=== PATIENT | male | born 1955 | race American Indian/Alaskan Native ===

== ENCOUNTER 2018-09-17 00:39 | Inpatient (IN) | payer OTHER ==
[2018-09-17] MEDS ORDERED: NACL 0.9% 1000 ML 1,000 ML IV ONE (02:00)
--- NOTE | 2018-09-17 02:18 | Emergency Department Report ---
ED General Adult HPI - General Chief complaint: Seizure Stated complaint: SEIZURE Time Seen by Provider: 09/17/18 01:42 Source: EMS Mode of arrival: Stretcher Limitations: Other - History of Present Illness Initial comments: 63-year-old male with a past medical history of seizures presents after a friend brought him to emergency department the patient presumptively had a seizure. EMS states that there was drug around the residence in which they pick the patient up. EMS states that they were possibly filming movie at the house. Patient unable to give the date and time upon arrival here patient was not oriented to person upon my evaluation. The patient was unable to give a full history upon my evaluation. - Related Data Allergies Allergy/AdvReac Type Severity Reaction Status Date / Time ampicillin Allergy Unknown Verified 09/17/18 01:30 ED Review of Systems ROS: Stated complaint: SEIZURE Other details as noted in HPI Comment: Unobtainable due to pts medical conditions Constitutional: denies: chills, fever Eyes: denies: eye pain, eye discharge, vision change ENT: denies: ear pain, throat pain Respiratory: denies: cough, shortness of breath, wheezing Cardiovascular: denies: chest pain, palpitations Endocrine: no symptoms reported Gastrointestinal: denies: abdominal pain, nausea, diarrhea Genitourinary: denies: urgency, dysuria Musculoskeletal: denies: back pain, joint swelling, arthralgia Skin: denies: rash, lesions Neurological: denies: headache, weakness, paresthesias Psychiatric: denies: anxiety, depression Hematological/Lymphatic: denies: easy bleeding, easy bruising ED Past Medical Hx - Past Medical History Previous Medical History?: Yes Hx Seizures: Yes - Social History Smoking Status: Current Every Day Smoker ED Physical Exam - General Limitations: Other General appearance: other (only speaking the name "giovana" ; dehydrated) - Head Head exam: Present: atraumatic, normocephalic - Eye Eye exam: Present: normal appearance - ENT ENT exam: Present: mucous membranes dry - Neck Neck exam: Present: normal inspection - Respiratory Respiratory exam: Present: normal lung sounds bilaterally. Absent: respiratory distress - Cardiovascular Cardiovascular Exam: Present: regular rate, normal rhythm. Absent: systolic murmur, diastolic murmur, rubs, gallop - GI/Abdominal GI/Abdominal exam: Present: soft, normal bowel sounds - Rectal Rectal exam: Present: deferred - Extremities Exam Extremities exam: Present: normal inspection - Back Exam Back exam: Present: normal inspection - Expanded Neurological Exam Expanded Neurological exam: Present: innattentive Patient oriented to: Absent: person, place, time Cranial nerves: Gag Reflex: Normal Upper motor neuron: Constantino Neglect: Normal, Pronator Drift: Normal Motor strength exam: RUE: 5, LUE: 5, RLE: 5, LLE: 5 Best Eye Response ([place]): (4) open spontaneously Best Motor Response ([place]): (5) localizes to pain Best Verbal Response ([place]): (4) confused conversation [place] Total: 13 - Skin Skin exam: Present: warm, dry, intact, normal color. Absent: rash ED Course Vital Signs 09/17/18 09/17/18 09/17/18 01:38 02:00 04:33 Pulse Rate 76 83 Respiratory 18 20 18 Rate Blood Pressure 151/89 Blood Pressure 160/95 [Left] O2 Sat by Pulse 100 96 100 Oximetry ED Medical Decision Making - Lab Data Result diagrams: 09/17/18 02:05 09/17/18 02:05 - EKG Data EKG shows normal: sinus rhythm Rate: bradycardia - EKG Data Interpretation: nonspecific ST-T wave dorothy - Medical Decision Making Patient had a seizure episode while in emergency room was given Results of Ativan therapy. Patient has CT which showed no acute processes. After this evaluation patient remains not oriented to person place and time and with this being present to neurology was consulted. Patient be admitted to the hospitalist service for continued management and treatment. - Differential Diagnosis STEMI; NSTEMI; Arrhythmia; Anemia; Electrolyte Abnormality Critical care attestation.: If time is entered above; I have spent that time in minutes in the direct care of this critically ill patient, excluding procedure time. ED Disposition Clinical Impression: Seizure, Altered mental status, unspecified Disposition: DC-09 OP ADMIT IP TO THIS HOSP Is pt being admited?: Yes Does the pt Need Aspirin: No Condition: Fair Referrals: MACO RODRIGUEZ MD [Primary Care Provider] - 3-5 Days Time of Disposition: 06:43 Print Language: ITALIAN
[2018-09-17 02:23] LABS: Hematocrit 38.7 % (35.5-45.6); Hemoglobin 13.3 gm/dl (11.8-15.2); Mean Corpuscular HGB Conc 35 % (32-34); Mean Corpuscular Hemoglobin 36 pg (28-32); Mean Corpuscular Volume 103 fl (84-94); Platelet Count 329 K/mm3 (140-440); Red Blood Count 3.74 M/mm3 (3.65-5.03); Red Cell Distribution Width 13.5 % (13.2-15.2)
[2018-09-17 02:42] LABS: BUN/Creatinine Ratio 10; Blood Urea Nitrogen 7 mg/dL (9-20); Calcium 9.4 mg/dL (8.4-10.2); Hemolysis Index 11
[2018-09-17] MEDS ORDERED: ATIVAN ONE (03:28)
[2018-09-17] MEDS ORDERED: KEPPRA 1,000 MG/NS 0.75% 100ML 1,000 MG/100 ML BAG IV ONE ×2 (03:28→03:38)
[2018-09-17] MEDS ORDERED: ATIVAN IV ONE ×2 (03:38→04:25)
[2018-09-17 04:30] LABS: Amphetamine Screen,Urine PRESUMPTIVE NEGATIVE; Benzodiazepines Screen,Urine PRESUMPTIVE NEGATIVE; Cannabinoid Screen,Urine PRESUMPTIVE NEGATIVE; Cocaine Screen,Urine PRESUMPTIVE NEGATIVE; Methadone Screen,Urine PRESUMPTIVE NEGATIVE; Opiate Screen,Urine PRESUMPTIVE NEGATIVE
[2018-09-17] MEDS ORDERED: ZOFRAN IV ONE (04:30)
[2018-09-17] MEDS ORDERED: ZOFRAN ONE (04:58)
--- NOTE | 2018-09-17 06:00 | Cat Scan Report ---
CT HEAD WITHOUT CONTRAST INDICATION : Seizure. Altered mental status. TECHNIQUE: Axial, coronal and sagittal CT imaging was performed from the skull apex through the skul l base without contrast. All CT scans at this location are performed using CT dose reduction for ALA RA by means of automated exposure control. COMPARISON: None available. FINDINGS: Motion artifact limits this exam. PARENCHYMA: No mass, midline shift, hemorrhage, extraaxial collection or acute territorial infarctio n. There is generalized atrophy. Areas of low-attenuation along the periventricular white matter like ly represent chronic microvascular ischemic changes. Bilateral basal ganglial calcifications are note d. VENTRICLES: Prominent secondary to atrophy. No acute abnormality. SOFT TISSUES: Soft tissues including the orbits appear normal. BONES: No acute osseous abnormality. SINUSES: No significant abnormality. ADDITIONAL FINDINGS: None. IMPRESSION: 1. No acute abnormality. 2. Additional chronic changes as above. Signer Name: Jono Levy MD Signed: 09/17/2018 5:56 AM Workstation Name: [id number]
[2018-09-17] MEDS ORDERED: PROVENTIL IH PRN (06:07)
[2018-09-17] MEDS ORDERED: SODIUM CHLORIDE FLUSH SYRINGE 10 ML IV PRN (06:07)
[2018-09-17] MEDS ORDERED: TYLENOL PO PRN (06:07)
[2018-09-17] MEDS ORDERED: ZOFRAN IV PRN (06:07)
[2018-09-17] MEDS ORDERED: APRESOLINE IV PRN (06:10)
--- NOTE | 2018-09-17 06:24 | History and Physical Report ---
<PIPER SANTILLAN - Last Filed: 09/17/18 06:26> History of Present Illness Date of examination: 09/17/18 Date of admission: 09/17/2018 Chief complaint: Seizure, postictal state History of present illness: 63-year-old male unknown medical history presents to [facility] ED by EMS with complaints of witnessed seizure. Patient is awake and confused. He is unable to provide history. History is taken from EMS report. Patient's friend witnessed patient actively seizing., and called EMS. Upon EMS's arrival to pt's location (home, unsure whether or not this was pt's home) he was found to be awake with drug paraphernalia around him. He was unable to provide any information to EMS. The friend toldl EMS that they were at the home to shoot a movie. While in the ED patient experienced another seizure, and was given IV Ativan. Currently in postoctal state. He is awake, but disoriented 4. Past History Past Medical History: other (unable to obtain, due to patient's mental status) Medications and Allergies Allergies Allergy/AdvReac Type Severity Reaction Status Date / Time ampicillin Allergy Unknown Verified 09/17/18 01:30 Active Meds: Active Medications Acetaminophen (Tylenol) 650 mg PO Q4H PRN PRN Reason: Pain MILD(1-3)/Fever >100.5/JENKINS Albuterol (Proventil) 2.5 mg IH Q3HRT PRN PRN Reason: Shortness Of Breath Enoxaparin Sodium (Lovenox) 40 mg SUB-Q QDAY@2200 KOTA Hydralazine HCl (Apresoline) 10 mg IV Q4HR PRN PRN Reason: Blood Pressure Levetiracetam 1,000 mg/ (Dextrose) 110 mls @ 400 mls/hr IV Q12HR KOTA Lorazepam (Ativan) 2 mg IV Q4H PRN PRN Reason: Agitation; seizure Ondansetron HCl (Zofran) 4 mg IV Q8H PRN PRN Reason: Nausea And Vomiting Sodium Chloride (Sodium Chloride Flush Syringe 10 Ml) 10 ml IV BID KOTA Sodium Chloride (Sodium Chloride Flush Syringe 10 Ml) 10 ml IV PRN PRN PRN Reason: LINE FLUSH Review of Systems ROS unobtainable: due to mental status Exam - Physical Exam Narrative exam: Physical exam General appearance: Present: Postictal state, disoriented to self, time, place, person, thin well-developed -Greek male - EENT Eyes: Present: PERRL, EOM intact ENT: hearing intact, poor dentition - Neck Neck: Present: supple, normal ROM - Respiratory Respiratory effort: Non-labored Respiratory: Clear throughout - Cardiovascular Heart rate: 59(bpm) Rhythm: Sinus bradycardia, tall T wave Heart Sounds: Present: S1 & S2. Absent: rub, click - Extremities Extremities: no ischemia, pulses intact, - Peripheral Assessment Peripheral Pulses: within normal limits - Abdominal General gastrointestinal: soft, non-tender, normal bowel sounds - Integumentary Integumentary: Present: warm, dry - Musculoskeletal Musculoskeletal: Able to move extremities - Psychiatric Psychiatric: Unable to assess a patient is currently confused and in postictal state - Constitutional Vitals: Temp Pulse Resp BP Pulse Ox 83 18 160/95 100 09/17/18 04:33 09/17/18 04:33 09/17/18 04:33 09/17/18 04:33 Results - Labs CBC & Chem 7: 09/17/18 02:05 09/17/18 02:05 Labs: Laboratory Last Values WBC 4.0 K/mm3 (4.5-11.0) L 09/17/18 02:05 RBC 3.74 M/mm3 (3.65-5.03) 09/17/18 02:05 Hgb 13.3 gm/dl (11.8-15.2) 09/17/18 02:05 Hct 38.7 % (35.5-45.6) 09/17/18 02:05 MCV 103 fl (84-94) H 09/17/18 02:05 MCH 36 pg (28-32) H 09/17/18 02:05 MCHC 35 % (32-34) H 09/17/18 02:05 RDW 13.5 % (13.2-15.2) 09/17/18 02:05 Plt Count 329 K/mm3 (140-440) 09/17/18 02:05 Sodium 136 mmol/L (137-145) L 09/17/18 02:05 Potassium 4.8 mmol/L (3.6-5.0) 09/17/18 02:05 Chloride 98.3 mmol/L (98-107) 09/17/18 02:05 Carbon Dioxide 24 mmol/L (22-30) 09/17/18 02:05 19 mmol/L 09/17/18 02:05 BUN 7 mg/dL (9-20) L 09/17/18 02:05 0.7 mg/dL (0.8-1.5) L 09/17/18 02:05 Estimated GFR > 60 ml/min 09/17/18 02:05 10 % 09/17/18 02:05 Glucose 111 mg/dL (75-100) H 09/17/18 02:05 Calcium 9.4 mg/dL (8.4-10.2) 09/17/18 02:05 256 units/L (55-170) H 09/17/18 02:05 < 0.010 ng/mL (0.00-0.029) 09/17/18 02:05 Salicylates < 0.3 mg/dL (2.8-20.0) L 09/17/18 02:05 Presumptive negative 09/17/18 03:02 Presumptive negative 09/17/18 03:02 Acetaminophen < 5.0 ug/mL (10.0-30.0) L 09/17/18 02:05 Ur Barbiturates Screen Presumptive negative 09/17/18 03:02 Ur Phencyclidine Scrn Presumptive negative 09/17/18 03:02 Ur Amphetamines Screen Presumptive negative 09/17/18 03:02 U Benzodiazepines Scrn Presumptive negative 09/17/18 03:02 Presumptive negative 09/17/18 03:02 U Marijuana (THC) Screen Presumptive negative 09/17/18 03:02 Disclamer 09/17/18 03:02 Plasma/Serum Alcohol < 0.01 % (0-0.07) 09/17/18 02:05 - Imaging and Cardiology Imaging and Cardiology: CT Head: FINDINGS: Motion artifact limits this exam. PARENCHYMA: No mass, midline shift, hemorrhage, extraaxial collection or acute territorial infarction. There is generalized atrophy. Areas of low-attenuation along the periventricular white matter likely represent chronic microvascular ischemic changes. Bilateral basal ganglial calcifications are noted. VENTRICLES: Prominent secondary to atrophy. No acute abnormality. SOFT TISSUES: Soft tissues including the orbits appear normal. BONES: No acute osseous abnormality. SINUSES: No significant abnormality. ADDITIONAL FINDINGS: None. IMPRESSION: 1. No acute abnormality. 2. Additional chronic changes as above. Assessment and Plan Assessment and plan: 63-year-old male unknown medical history presents to [facility] ED by EMS with complaints of witnessed seizure. While in the ED patient experienced another seizure he was given IV Ativan. Currently in postoctal state. He is awake, but disoriented 4. 1. Seizure -Witnessed seizures 2, one at home witnessed by her friend, the other witnessed in ED -Initiate seizure precautions -Received IV Ativan -CT head negative for acute abnormalities -Start IV Keppra 1 g twice a day -IV Ativan when necessary -Neurology consulted -EEG pending 2. Acute encephalopathy -Likely secondary to seizure -Urine drug screen negative -Initiate neuro checks -Hydrated with IV fluid 3. Hypertension -Unable to obtain medical history -Monitor BP -IV hydralazine when necessary 4. DVT PPX -On Lovenox Advance Directives: No VTE prophylaxis?: Chemical Plan of care discussed with patient/family: Yes <TOYA IRVING - Last Filed: 09/17/18 06:48> Medications and Allergies Active Meds: Active Medications Acetaminophen (Tylenol) 650 mg PO Q4H PRN PRN Reason: Pain MILD(1-3)/Fever >100.5/JENKINS Albuterol (Proventil) 2.5 mg IH Q3HRT PRN PRN Reason: Shortness Of Breath Enoxaparin Sodium (Lovenox) 40 mg SUB-Q QDAY@2200 KOTA Hydralazine HCl (Apresoline) 10 mg IV Q4HR PRN PRN Reason: Blood Pressure Sodium Chloride (Nacl 0.9% 1000 Ml) 1,000 mls @ 75 mls/hr IV DIRECT KOTA Stop: 09/17/18 12:00 Levetiracetam 500 mg/ Dextrose 105 mls @ 400 mls/hr IV Q12HR KOTA Lorazepam (Ativan) 2 mg IV Q4H PRN PRN Reason: Agitation; seizure Ondansetron HCl (Zofran) 4 mg IV Q8H PRN PRN Reason: Nausea And Vomiting Sodium Chloride (Sodium Chloride Flush Syringe 10 Ml) 10 ml IV BID KOTA Sodium Chloride (Sodium Chloride Flush Syringe 10 Ml) 10 ml IV PRN PRN PRN Reason: LINE FLUSH Exam - Constitutional Vitals: Temp Pulse Resp BP Pulse Ox 83 18 160/95 100 09/17/18 04:33 09/17/18 04:33 09/17/18 04:33 09/17/18 04:33 Results - Labs CBC & Chem 7: 09/17/18 02:05 09/17/18 02:05 Labs: Laboratory Last Values WBC 4.0 K/mm3 (4.5-11.0) L 09/17/18 02:05 RBC 3.74 M/mm3 (3.65-5.03) 09/17/18 02:05 Hgb 13.3 gm/dl (11.8-15.2) 09/17/18 02:05 Hct 38.7 % (35.5-45.6) 09/17/18 02:05 MCV 103 fl (84-94) H 09/17/18 02:05 MCH 36 pg (28-32) H 09/17/18 02:05 MCHC 35 % (32-34) H 09/17/18 02:05 RDW 13.5 % (13.2-15.2) 09/17/18 02:05 Plt Count 329 K/mm3 (140-440) 09/17/18 02:05 Sodium 136 mmol/L (137-145) L 09/17/18 02:05 Potassium 4.8 mmol/L (3.6-5.0) 09/17/18 02:05 Chloride 98.3 mmol/L (98-107) 09/17/18 02:05 Carbon Dioxide 24 mmol/L (22-30) 09/17/18 02:05 19 mmol/L 09/17/18 02:05 BUN 7 mg/dL (9-20) L 09/17/18 02:05 0.7 mg/dL (0.8-1.5) L 09/17/18 02:05 Estimated GFR > 60 ml/min 09/17/18 02:05 10 % 09/17/18 02:05 Glucose 111 mg/dL (75-100) H 09/17/18 02:05 Calcium 9.4 mg/dL (8.4-10.2) 09/17/18 02:05 256 units/L (55-170) H 09/17/18 02:05 < 0.010 ng/mL (0.00-0.029) 09/17/18 02:05 Salicylates < 0.3 mg/dL (2.8-20.0) L 09/17/18 02:05 Presumptive negative 09/17/18 03:02 Presumptive negative 09/17/18 03:02 Acetaminophen < 5.0 ug/mL (10.0-30.0) L 09/17/18 02:05 Ur Barbiturates Screen Presumptive negative 09/17/18 03:02 Ur Phencyclidine Scrn Presumptive negative 09/17/18 03:02 Ur Amphetamines Screen Presumptive negative 09/17/18 03:02 U Benzodiazepines Scrn Presumptive negative 09/17/18 03:02 Presumptive negative 09/17/18 03:02 U Marijuana (THC) Screen Presumptive negative 09/17/18 03:02 Disclamer 09/17/18 03:02 Plasma/Serum Alcohol < 0.01 % (0-0.07) 09/17/18 02:05 Assessment and Plan Assessment and plan: Patient seen and examined. 63 year old presents with 2 episodes of seizures, s/p ativan, now postictal. Unclear if he has a history of seizure, Agree with plan as stated above
[2018-09-17] MEDS ORDERED: NACL 0.9% 1000 ML 1,000 ML IV SCH (07:00)
[2018-09-17] MEDS ORDERED: APRESOLINE ONE (08:33)
[2018-09-17] MEDS ORDERED: KEPPRA 1,000 MG in D5W 100 ML IV SCH (10:00)
--- NOTE | 2018-09-17 10:00 | Progress Note ---
Subjective Date of service: 09/17/18 Interval history: see my dictated note on this patient plan EEG the CT shows large old left MCA stroke patient is very confused not sure if this is his baseline status Objective - Vital Sign Vital Signs - 12hr 09/17/18 09/17/18 09/17/18 01:38 02:00 04:33 Temperature Pulse Rate 76 83 Respiratory 18 20 18 Rate Blood Pressure 151/89 Blood Pressure 160/95 [Left] O2 Sat by Pulse 100 96 100 Oximetry 09/17/18 09/17/18 09/17/18 06:30 08:25 09:24 Temperature 98.7 F Pulse Rate 65 64 97 H Respiratory 20 18 Rate Blood Pressure 179/95 Blood Pressure 171/85 149/83 [Left] O2 Sat by Pulse 98 100 Oximetry - Laboratory Findings CBC and BMP: 09/17/18 02:05 09/17/18 02:05 Abnormal Lab Findings: Abnormal Labs 09/17/18 09/17/18 09/17/18 02:05 02:05 02:05 WBC 4.0 L MCV 103 H MCH 36 H MCHC 35 H Sodium 136 L BUN 7 L Creatinine 0.7 L Glucose 111 H Total Creatine Kinase 256 H Salicylates Acetaminophen 09/17/18 09/17/18 02:05 02:05 WBC MCV MCH MCHC Sodium BUN Creatinine Glucose Total Creatine Kinase Salicylates < 0.3 L Acetaminophen < 5.0 L
[2018-09-17] MEDS: SODIUM CHLORIDE FLUSH SYRINGE 10 ML IV SCH ×2 (12:10→22:14)
[2018-09-17] MEDS: KEPPRA 500 MG in D5W 100 ML IV SCH ×2 (12:33→22:13)
[2018-09-17] MEDS: LOVENOX SUB-Q SCH (22:13)
[2018-09-17] MEDS: ATIVAN IV PRN (22:17)
--- NOTE | 2018-09-18 00:21 | Event Note ---
Date: 09/18/18 Pt has tall peaked t waves seen on 12am tele stip. Ordered 12 Lead, troponin, and potassium lab.
--- NOTE | 2018-09-18 01:55 | Consultation ---
HISTORY OF PRESENT ILLNESS: This is a 63-year-old black male that presents to the Emergency Room after being found with generalized seizures. He was at his residence, apparently began to have seizures. He was unable to provide any information as to what happened. It does not appear the patient was taking seizure medicine before. He has a primary care provider. He was admitted because of altered mental status, seizure, electrolyte imbalance. HE HAS ALLERGIES TO PENICILLIN. I reviewed his CT scan of the head. There is great deal of movement artifact. There is marked amount of atrophy present. He has had old left frontal stroke, deep white matter ischemic changes, very prominent on the left side suggestive of previous middle cerebral artery stroke, watershed infarct. There are no acute lesions noted. There are age-related changes present throughout the brain. We reviewed the laboratory, reveals the patient's hematocrit to be 38.7. He had a negative drug screen. The patient's sodium was 136, potassium 4.8. CPK was elevated at 256. Glucose was 111. PHYSICAL EXAMINATION: VITAL SIGNS: On my examination, his blood pressure is 114/80, pulse rate 80, respirations 18. NEUROLOGIC: Cranial nerves 2-12 intact. He is disoriented to person, place, and time. He is slightly cooperative. He is easily arousable, was sleepy when I came in the room. He seems very impaired as far as arousal and ability to interact. He does not speak unless spoken with. He follows only simple commands, has equal tone throughout. I do not feel he is aphasic at present time. His hearing is intact. Visual bowman are full. Motor and sensory examination is otherwise unremarkable. No tremors or asterixis are noted. No focal seizure activity is appreciated. IMPRESSION: 1. Onset of seizure, limited history in the past. 2. 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 3. Borderline elevated blood glucose, suspect diabetes. 4. Elevated CPK consistent with a generalized seizure, is not markedly elevated in the pathological range. Drug screen is negative, does not appear to be any history of alcohol use in occurring this patient. Await family history and further social contacts to discuss his past medical history. JOB# [id number] PATRICIA/NTS
[2018-09-18] MEDS ORDERED: K-DUR PO ONE (03:31)
[2018-09-18 06:31] LABS: Basophils # (Auto) 0.1 K/mm3 (0.0-0.1); Basophils % (Auto) 1.1 % (0.0-1.8); Eosinophils % (Auto) 0.3 % (0.0-4.3); Hematocrit 36.8 % (35.5-45.6); Hemoglobin 12.8 gm/dl (11.8-15.2); Lymphocytes # (Auto) 1.9 K/mm3 (1.2-5.4); Lymphocytes % (Auto) 25.8 % (13.4-35.0); Mean Corpuscular HGB Conc 35 % (32-34); Mean Corpuscular Hemoglobin 36 pg (28-32); Mean Corpuscular Volume 103 fl (84-94); Monocytes # (Auto) 1.1 K/mm3 (0.0-0.8); Monocytes % (Auto) 14.9 % (0.0-7.3); Platelet Count 315 K/mm3 (140-440); Red Blood Count 3.59 M/mm3 (3.65-5.03); Red Cell Distribution Width 13.3 % (13.2-15.2)
[2018-09-18 06:54] LABS: BUN/Creatinine Ratio 13; Blood Urea Nitrogen 8 mg/dL (9-20); Calcium 9.2 mg/dL (8.4-10.2); Hemolysis Index 5
[2018-09-18] MEDS: ATIVAN IV PRN (09:41)
--- NOTE | 2018-09-18 10:20 | Consultation ---
History of Present Illness Consult date: 09/17/18 Past History Past Medical History: other (unable to obtain, due to patient's mental status) Medications and Allergies Allergies Allergy/AdvReac Type Severity Reaction Status Date / Time ampicillin Allergy Unknown Verified 09/17/18 01:30 Active Meds: Active Medications Acetaminophen (Tylenol) 650 mg PO Q4H PRN PRN Reason: Pain MILD(1-3)/Fever >100.5/JENKINS Albuterol (Proventil) 2.5 mg IH Q3HRT PRN PRN Reason: Shortness Of Breath Enoxaparin Sodium (Lovenox) 40 mg SUB-Q QDAY@2200 [facility] Last Admin: 09/17/18 22:13 Dose: 40 mg Documented by: Hydralazine HCl (Apresoline) 10 mg IV Q4HR PRN PRN Reason: Blood Pressure Last Admin: 09/17/18 08:25 Dose: 10 mg Documented by: Levetiracetam 500 mg/ Dextrose 105 mls @ 400 mls/hr IV Q12HR [facility] Last Admin: 09/17/18 22:13 Dose: 400 mls/hr Documented by: Lorazepam (Ativan) 2 mg IV Q4H PRN PRN Reason: Agitation; seizure Last Admin: 09/18/18 09:41 Dose: 2 mg Documented by: Ondansetron HCl (Zofran) 4 mg IV Q8H PRN PRN Reason: Nausea And Vomiting Sodium Chloride (Sodium Chloride Flush Syringe 10 Ml) 10 ml IV BID [facility] Last Admin: 09/17/18 22:14 Dose: 10 ml Documented by: Sodium Chloride (Sodium Chloride Flush Syringe 10 Ml) 10 ml IV PRN PRN PRN Reason: LINE FLUSH Physical Examination - Vital Signs Vital Signs: Vital Signs Pulse Resp 77 14 09/17/18 01:16 09/17/18 01:16 Results - Laboratory Findings CBC and BMP: 09/18/18 05:00 09/18/18 05:00 Abnormal Lab Findings: Abnormal Labs 09/17/18 09/17/18 09/17/18 02:05 02:05 02:05 WBC 4.0 L RBC MCV 103 H MCH 36 H MCHC 35 H [place] % (Auto) [place] # Sodium 136 L Potassium Chloride BUN 7 L Creatinine 0.7 L Glucose 111 H Total Creatine Kinase 256 H Salicylates Acetaminophen 09/17/18 09/17/18 09/18/18 02:05 02:05 01:03 WBC RBC MCV MCH MCHC [place] % (Auto) [place] # Sodium Potassium 3.5 L D Chloride BUN Creatinine Glucose Total Creatine Kinase Salicylates < 0.3 L Acetaminophen < 5.0 L 09/18/18 09/18/18 05:00 05:00 WBC RBC 3.59 L MCV 103 H MCH 36 H MCHC 35 H [place] % (Auto) 14.9 H [place] # 1.1 H Sodium 135 L Potassium 3.5 L Chloride 96.5 L BUN 8 L Creatinine 0.6 L Glucose 121 H Total Creatine Kinase Salicylates Acetaminophen Assessment and Plan [facility] Date of Service 09/17/2018 seen as STAT consult [id number] Impression: 1- altered mental status likely post ictal phase after witnessed seizure Recommendations: 1- continue Keppra 500mg BID for now till his home medication is confirmed 2- noncontrast brain MRI 3- EEG 4- If does not return back to baseline as expected then consider LP and CSF testing. 5- Seizure precautions/education: AED side effects/Adverse Effects: (If applicable) Reviewed and discussed potential adverse effects of Seizure medication(s); Seizure safety precautions: Patient is to refrain from unsupervised activities that may endanger him/others if a seizure should occur while unattended. These activities include: cooking, being near open flame/fire, operation of heavy machinery, climbing height or ladder/scaffolding, swimming/being near body of w ater, tub bathing, etc. Factors that may lower seizure threshold and increase risk of breakthrough seizure include: Certain medications (including certain pain medications, anesthetics, antibiotics, antipsychotics), illicit drugs, alcohol, sleep deprivation/lack of sleep, excessive stress, missing dose of seizure medications, flashing lights etc. Any seizure lasting 5 minutes or more or consecutive seizures stacking up without fully regaining consciousness in between seizures is considered a m edical emergency called status epilepticus. Immediate medical management should be sought in acute care setting or emergency room by calling . Driving safety/DMV regulations: Individual with seizure disorder or any person who experiences an event or spell with changes in level of consciousness or loss of consciousness should not drive for 6 months; need to be re-evaluated by provider before resuming driving. Do not drive until seizure-free or no event with loss of consciousness for at least 6 months. [facility] Neurologist will follow up with results. Please contact [facility] Navigator to reach me if further questions/concerns arise. Reason for Neurology Consult: - History of Present Illness: - Patient is a(n) 63 years old male, with history of seizure was found with altered mental status, had a seizure in the ER, was given Keppra, head CT within normal limits, UDS negative Diagnostic Testing: - As above Review of Systems: Constitutional: Negative except as documented in history of present illness. Eye: Negative except as documented in history of present illness. Ear/Nose/Mouth/Throat: Negative except as documented in history of present illness. Respiratory: Negative except as documented in history of present illness. Cardiovascular: Negative except as documented in history of present illness. Gastrointestinal: Negative except as documented in history of present illness. Musculoskeletal: Negative except as documented in history of present illness. Neurologic: Negative except as documented in history of present illness. Examination: Mental Status: Lethargic, oriented to self, knows is in the hospital but doesnt know the name Speech: difficult to assess due to lethargy but no obvious anomia Cranial Nerves: Extraocular movements: Intact in all cardinal gaze Ptosis: Absent Facial movements: Intact and symmetric Motor Exam: No drift in arms Tremor/Abnormal Movements: Resting tremor: Absent Medical Decision Making: - Extensive number of diagnosis or management options are considered above. - Extensive amount of complex data reviewed. - High risk of complication and/or morbidity or mortality are associated with differential diagnostic considerations above. - There may be uncertain outcome and increased probability of prolonged functional impairment or high probability of severe prolonged functional impairment associated with some of these differential diagnoses. Medical Data Reviewed: 1.Data reviewed include clinical labs, radiology,Medical Tests; 2.Tests results discussed w/performing or interpreting physician; 3.Obtaining/reviewing old medical records; 4.Obtaining case history from another source; 5.Independent review of image, tracing or specimen. When possible Patient/family were informed the Neurology Consult would happen via TeleHealth consult by way of interactive audio and video telecommunications and consented to receiving care in this manner.
--- NOTE | 2018-09-18 11:18 | Magnetic Resonance Report ---
MRI BRAIN WITHOUT CONTRAST INDICATION / CLINICAL INFORMATION: new onset seizures. TECHNIQUE: Multiplanar, multisequence MR images of the brain were obtained. Please note these are the best possi ble images that could be obtained. Despite medication, Mr. Bower continued to move during image acqu isition. COMPARISON: CT scan from 09/17/2018 FINDINGS: BRAIN / INTRACRANIAL CONTENTS: No acute ischemia, acute hemorrhage, mass effect, midline shift, or hy drocephalus. Encephalomalacia is seen in the inferior frontal lobes bilaterally from old healed cont usions. Generalized volume loss is seen in the cerebral hemisphere to moderate degree. Normal tempora l horn tips suggest normal hippocampi. Moderate volume loss is seen in the cerebellar vermis and cere bellar hemispheres. Confluent periventricular and deep hemispheric white matter lesions are seen. (Fa lobokaramon 2) CRANIOCERVICAL JUNCTION: No significant abnormality. VASCULAR FLOW-VOIDS: No significant abnormality. ORBITS: No significant abnormality of visualized orbits. SINUSES / MASTOIDS: Mucosal thickening is seen in the right mastoid air cells and right middle ear ca vity. Minimal mucosal thickening is seen in the maxillary sinuses. ADDITIONAL FINDINGS: None. 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
[2018-09-18] MEDS: KEPPRA 500 MG in D5W 100 ML IV SCH ×2 (11:30→22:23)
--- NOTE | 2018-09-18 15:21 | Progress Note ---
Assessment and Plan Assessment and plan: 63-year-old man with history of alcohol abuse, Seizure disorder, per his children he is not compliant with his antiseizure meds. And he drinks beer heavily every day, patient was brought into the hospital after 2 witnessed seizures Status epilepticus Due to noncompliance with seizure medications, Anibal Lo, neurology consult, EEG Acute metabolic encephalopathy due to postictal state Alcohol abuse/dependence Patient had 2 beers right prior to having his seizures, he was not a Medrol at that time CIWA protocol, IV fluids, thiamine and folate Hypertensive urgency Monitor blood pressure, BP meds as needed Moderate malnutrition Dietitian consult, encourage balanced diet Nonadherence to medications, and alcohol abuse Preventative health counseling performed > 18 minutes DVT prophylaxis; Lovenox History Interval history: Review of systems Constitutional: No fevers, no malaise, no joint pains CVS: No chest pain, no orthopnea, no dyspnea on exertion, no pedal edema GI: No abdominal pain, no diarrhea, no vomiting, no constipation Respiratory: no wheezing, no coughing Hospitalist Physical - Physical exam Narrative exam: General.: Appears well, no distress, nontoxic HEENT: Moist mucous membranes, extraocular muscles intact, no lymphadenopathy Neck: supple Cardiac: S1-S2 heard Lungs: clear to auscultation bilaterally Abdomen: soft , nontender, nondistended, bowel sounds positive Extremities: no edema clubbing or cyanosis Skin: no rash or lesions Neurologic: no gross focal deficits Psych: calm, and cooperative - Constitutional Vitals: Temp Pulse Resp BP Pulse Ox 97.6 F 54 L 18 178/84 98 09/18/18 07:20 09/18/18 08:09 09/18/18 07:20 09/18/18 07:20 09/18/18 12:38 Results - Labs CBC & Chem 7: 09/18/18 05:00 09/18/18 05:00 Labs: Laboratory Last Values WBC 7.4 K/mm3 (4.5-11.0) 09/18/18 05:00 RBC 3.59 M/mm3 (3.65-5.03) L 09/18/18 05:00 Hgb 12.8 gm/dl (11.8-15.2) 09/18/18 05:00 Hct 36.8 % (35.5-45.6) 09/18/18 05:00 MCV 103 fl (84-94) H 09/18/18 05:00 MCH 36 pg (28-32) H 09/18/18 05:00 MCHC 35 % (32-34) H 09/18/18 05:00 RDW 13.3 % (13.2-15.2) 09/18/18 05:00 Plt Count 315 K/mm3 (140-440) 09/18/18 05:00 Lymph % (Auto) 25.8 % (13.4-35.0) 09/18/18 05:00 [place] % (Auto) 14.9 % (0.0-7.3) H 09/18/18 05:00 Eos % (Auto) 0.3 % (0.0-4.3) 09/18/18 05:00 Baso % (Auto) 1.1 % (0.0-1.8) 09/18/18 05:00 Lymph # 1.9 K/mm3 (1.2-5.4) 09/18/18 05:00 [place] # 1.1 K/mm3 (0.0-0.8) H 09/18/18 05:00 Eos # 0.0 K/mm3 (0.0-0.4) 09/18/18 05:00 Baso # 0.1 K/mm3 (0.0-0.1) 09/18/18 05:00 Seg Neutrophils % 57.9 % (40.0-70.0) 09/18/18 05:00 Seg Neutrophils # 4.3 K/mm3 (1.8-7.7) 09/18/18 05:00 Sodium 135 mmol/L (137-145) L 09/18/18 05:00 Potassium 3.5 mmol/L (3.6-5.0) L 09/18/18 05:00 Chloride 96.5 mmol/L (98-107) L 09/18/18 05:00 Carbon Dioxide 23 mmol/L (22-30) 09/18/18 05:00 19 mmol/L 09/18/18 05:00 BUN 8 mg/dL (9-20) L 09/18/18 05:00 0.6 mg/dL (0.8-1.5) L 09/18/18 05:00 Estimated GFR > 60 ml/min 09/18/18 05:00 13 % 09/18/18 05:00 Glucose 121 mg/dL (75-100) H 09/18/18 05:00 POC Glucose 96 (70-105) 09/17/18 21:22 Calcium 9.2 mg/dL (8.4-10.2) 09/18/18 05:00 Magnesium 2.10 mg/dL (1.7-2.3) 09/18/18 05:00 256 units/L (55-170) H 09/17/18 02:05 < 0.010 ng/mL (0.00-0.029) 09/18/18 05:00 Salicylates < 0.3 mg/dL (2.8-20.0) L 09/17/18 02:05 Presumptive negative 09/17/18 03:02 Presumptive negative 09/17/18 03:02 Acetaminophen < 5.0 ug/mL (10.0-30.0) L 09/17/18 02:05 Ur Barbiturates Screen Presumptive negative 09/17/18 03:02 Ur Phencyclidine Scrn Presumptive negative 09/17/18 03:02 Ur Amphetamines Screen Presumptive negative 09/17/18 03:02 U Benzodiazepines Scrn Presumptive negative 09/17/18 03:02 Presumptive negative 09/17/18 03:02 U Marijuana (THC) Screen Presumptive negative 09/17/18 03:02 Disclamer 09/17/18 03:02 Plasma/Serum Alcohol < 0.01 % (0-0.07) 09/17/18 02:05 Active Medications - Current Medications Current Medications: Generic Name Dose Route Start Last Admin Trade Name Freq PRN Reason Stop Dose Admin Acetaminophen 650 mg 09/17/18 06:07 Tylenol PO Q4H PRN Pain MILD(1-3)/Fever >100.5/JENKINS Albuterol 2.5 mg 09/17/18 06:07 Proventil IH Q3HRT PRN Shortness Of Breath Amlodipine Besylate 10 mg 09/18/18 16:00 Norvasc PO QDAY [facility] Enoxaparin Sodium 40 mg 09/17/18 22:00 09/17/18 22:13 Lovenox SUB-Q 40 mg QDAY@2200 [facility] Administration Folic Acid 1 mg 09/19/18 10:00 Folvite PO QDAY KOTA Hydralazine HCl 10 mg 09/17/18 06:10 09/17/18 08:25 Apresoline IV 10 mg Q4HR PRN Administration Blood Pressure Levetiracetam 500 mg/ Dextrose 105 mls @ 400 mls/hr 09/17/18 10:00 09/17/18 22:13 IV 400 mls/hr Q12HR KOTA Administration Dextrose/Sodium Chloride 1,000 mls @ 42 mls/hr 09/18/18 16:00 D5/0.45ns IV DIRECT KOTA Lorazepam 2 mg 09/17/18 06:11 09/18/18 09:41 Ativan IV 2 mg Q4H PRN Administration Agitation; seizure Ondansetron HCl 4 mg 09/17/18 06:07 Zofran IV Q8H PRN Nausea And Vomiting Sodium Chloride 10 ml 09/17/18 10:00 09/17/18 22:14 Sodium Chloride Flush Syringe 10 Ml IV 10 ml BID KOTA Administration Sodium Chloride 10 ml 09/17/18 06:07 Sodium Chloride Flush Syringe 10 Ml IV PRN PRN LINE FLUSH Thiamine HCl 100 mg 09/19/18 10:00 Vitamin B-1 PO QDAY KOTA
[2018-09-18] MEDS ORDERED: D5/0.45NS 1,000 ML IV SCH (16:00)
[2018-09-18] MEDS: LOVENOX SUB-Q SCH (22:22)
[2018-09-18] MEDS: NORVASC PO SCH (22:24)
[2018-09-18] MEDS: SODIUM CHLORIDE FLUSH SYRINGE 10 ML IV SCH (22:35)
[2018-09-19] MEDS: SODIUM CHLORIDE FLUSH SYRINGE 10 ML IV SCH ×2 (05:26→09:35)
[2018-09-19 06:57] LABS: BUN/Creatinine Ratio 10; Blood Urea Nitrogen 6 mg/dL (9-20); Calcium 8.9 mg/dL (8.4-10.2); Hemolysis Index 17
[2018-09-19] MEDS: NORVASC PO SCH (09:34)
[2018-09-19] MEDS: KEPPRA 500 MG in D5W 100 ML IV SCH (09:35)
[2018-09-19] MEDS ORDERED: FOLVITE PO SCH (10:00)
[2018-09-19] MEDS ORDERED: VITAMIN B-1 PO SCH (10:00)
[2018-09-19 14:13] VITALS: BP 121/87
--- NOTE | 2018-09-19 15:29 | Discharge Summary ---
Providers - Providers Date of Admission: 09/17/18 07:51 Attending physician: JASMINA LUNA MD 09/17/18 06:07 Consult to Physician [CONS] Routine Comment: Consulting Provider: RENETTA TEMPLETON Physician Instructions: Reason For Exam: seizure 09/17/18 16:41 Consult to Physician [CONS] Routine Comment: Consulting Provider: MARICEL CEE Physician Instructions: Reason For Exam: seizure 09/18/18 15:18 Consult to Dietitian/Nutrition [CONS] Routine Physician Instructions: Reason For Exam: Reason for Consult: Malnutrition [facility] Condition: Fair Hospital course: 63-year-old man with history of alcohol abuse, Seizure disorder, per his children he is not compliant with his antiseizure meds. And he drinks beer heavily every day, patient was brought into the hospital after 2 witnessed seizures Status epilepticus Due to noncompliance with seizure medications, Anibal Lo, neurology consult, EEG Acute metabolic encephalopathy due to postictal state Alcohol abuse/dependence Patient had 2 beers right prior to having his seizures, he was not a Medrol at that time CIWA protocol, IV fluids, thiamine and folate Hypertensive urgency Monitor blood pressure, BP meds as needed Moderate malnutrition Dietitian consult, encourage balanced diet Nonadherence to medications, and alcohol abuse Preventative health counseling performed > 18 minutes DVT prophylaxis; Lovenox Disposition: DC- TO HOME OR SELFCARE Time spent for discharge: 33 mins Core Measure Documentation - Palliative Care Palliative Care/ Comfort Measures: Not Applicable - Core Measures Any of the following diagnoses?: none Exam - Constitutional Vitals: Temp Pulse Resp BP Pulse Ox 99.3 F 90 18 121/87 98 09/19/18 14:06 09/19/18 14:06 09/19/18 14:06 09/19/18 14:06 09/19/18 14:06 General appearance: Present: no acute distress, well-nourished - EENT Eyes: Present: PERRL ENT: hearing intact, clear oral mucosa - Neck Neck: Present: supple, normal ROM - Respiratory Respiratory effort: normal Respiratory: bilateral: CTA - Cardiovascular Heart Sounds: Present: S1 & S2. Absent: rub, click - Extremities Extremities: pulses symmetrical, No edema Peripheral Pulses: within normal limits - Abdominal General gastrointestinal: Present: soft, non-tender, non-distended, normal bowel sounds Male genitourinary: Present: normal - Integumentary Integumentary: Present: clear, warm, dry - Musculoskeletal Musculoskeletal: gait normal, strength equal bilaterally - Psychiatric Psychiatric: appropriate mood/affect, intact judgment & insight - Neurologic Neurologic: CNII-XII intact, moves all extremities Plan [facility] CRIS [Primary Care Provider] - 3-5 Days Prescriptions: Pravastatin Sodium [Pravastatin] 10 mg PO QHS #30 tablet Aspirin EC 81 mg PO QDAY #30 tablet. Folic Acid [Folvite] 1 mg PO QDAY #30 tablet levETIRAcetam [Keppra TAB] 500 mg PO Q12HR #60 tablet amLODIPine [Norvasc] 10 mg PO QDAY #30 tablet Thiamine [Vitamin B-1] 100 mg PO QDAY #30 tablet
--- NOTE | 2018-09-19 16:04 | Progress Note ---
Subjective Date of service: 09/19/18 Interval history: marked evidence of advanced atrophy of the brain no focal stroke OK at this time to be discharged will follow up in the office Objective - Vital Sign Vital Signs - 12hr 09/19/18 09/19/18 09/19/18 08:14 09:34 10:00 Temperature 97.8 F Pulse Rate 64 64 Pulse Rate [ 64 Left Radial] Respiratory 18 18 Rate Blood Pressure 141/87 141/87 O2 Sat by Pulse 99 99 Oximetry 09/19/18 14:06 Temperature 99.3 F Pulse Rate 90 Pulse Rate [ Left Radial] Respiratory 18 Rate Blood Pressure 121/87 O2 Sat by Pulse 98 Oximetry - Laboratory Findings CBC and BMP: 09/18/18 05:00 09/19/18 05:48 Abnormal Lab Findings: Abnormal Labs 09/17/18 09/17/18 09/17/18 02:05 02:05 02:05 WBC 4.0 L RBC MCV 103 H MCH 36 H MCHC 35 H Bee % (Auto) Bee # Sodium 136 L Potassium Chloride BUN 7 L Creatinine 0.7 L Glucose 111 H POC Glucose Total Creatine Kinase 256 H Salicylates Acetaminophen 09/17/18 09/17/18 09/18/18 02:05 02:05 01:03 WBC RBC MCV MCH MCHC Bee % (Auto) Bee # Sodium Potassium 3.5 L D Chloride BUN Creatinine Glucose POC Glucose Total Creatine Kinase Salicylates < 0.3 L Acetaminophen < 5.0 L 09/18/18 09/18/18 09/18/18 05:00 05:00 21:24 WBC RBC 3.59 L MCV 103 H MCH 36 H MCHC 35 H Bee % (Auto) 14.9 H Bee # 1.1 H Sodium 135 L Potassium 3.5 L Chloride 96.5 L BUN 8 L Creatinine 0.6 L Glucose 121 H POC Glucose 106 H Total Creatine Kinase Salicylates Acetaminophen 09/19/18 05:48 WBC RBC MCV MCH MCHC Bee % (Auto) Bee # Sodium 132 L Potassium 3.5 L Chloride 94.6 L BUN 6 L Creatinine 0.6 L Glucose 258 H POC Glucose Total Creatine Kinase Salicylates Acetaminophen
[2018-09-19] MEDS ORDERED: KEPPRA PO SCH (22:00)
== END 2018-09-19 18:34 | disposition home or self-care (01) | DRG 101 ==
LOC: SUATTDRO 00:39 → ED 00:39 → 4A 07:51 → 2B-ACE 09-18 18:10
PROVIDERS: ADMIT Internal Medicine; ATTEND Internal Medicine
DX: G40.901 Epilepsy, unspecified, not intractable, with status epilepticus (principal); E44.0 Moderate protein-calorie malnutrition; I16.0 Hypertensive urgency; F17.200 Nicotine dependence, unspecified, uncomplicated; F10.20 Alcohol dependence, uncomplicated; Y90.9 Presence of alcohol in blood, level not specified; I10 Essential (primary) hypertension; Z88.1 Allergy status to other antibiotic agents; Z68.20 Body mass index [BMI] 20.0-20.9, adult; Z91.14 Patient's other noncompliance with medication regimen
CPT/HCPCS: 36415; 70450; 70551; 80048; 80307; 80320; 82550; 82962; 83735; 84132; 84484; 85025; 85027; 93005; 93010; 95819; G0378; G0480; J0360; J1650; J1953; J2060; J2405; J7030

== ENCOUNTER 2018-12-12 22:59 | Inpatient (IN) | payer MEDICARE, OTHER ==
[2018-12-13 00:01] LABS: Hemoglobin 12.3 gm/dl (11.8-15.2); Mean Corpuscular HGB Conc 33 % (32-34); Mean Corpuscular Volume 104 fl (84-94); Platelet Count 286 K/mm3 (140-440); Red Blood Count 3.56 M/mm3 (3.65-5.03); Red Cell Distribution Width 13.9 % (13.2-15.2)
[2018-12-13 00:15] LABS: BUN/Creatinine Ratio 18; Blood Urea Nitrogen 11 mg/dL (9-20); Calcium 9.2 mg/dL (8.4-10.2); Hemolysis Index 8
[2018-12-13] MEDS ORDERED: KEPPRA 1,000 MG/NS 0.75% 100ML 1,000 MG/100 ML BAG IV ONE (00:52)
[2018-12-13] MEDS ORDERED: LIBRIUM PO PRN (00:52)
[2018-12-13] MEDS ORDERED: ATIVAN IV PRN ×2 (00:52→04:07)
[2018-12-13] MEDS ORDERED: NACL 0.9% 1000 ML 1,000 ML IV ONE ×2 (00:54→15:00)
--- NOTE | 2018-12-13 00:56 | Emergency Department Report ---
<RAKAN KOWALSKI - Last Filed: 12/13/18 04:02> ED General Adult HPI - General Chief complaint: Seizure Stated complaint: SEIZURE Time Seen by Provider: 12/12/18 23:46 - Related Data Previous Rx's Medication Instructions Recorded Last Taken Type Aspirin EC [Halfprin EC] 81 mg PO QDAY #30 tablet. 09/19/18 Unknown Rx Folic Acid [Folvite] 1 mg PO QDAY #30 tablet 09/19/18 Unknown Rx Pravastatin Sodium [Pravastatin] 10 mg PO QHS #30 tablet 09/19/18 Unknown Rx Thiamine [Vitamin B-1] 100 mg PO QDAY #30 tablet 09/19/18 Unknown Rx amLODIPine [Norvasc] 10 mg PO QDAY #30 tablet 09/19/18 Unknown Rx levETIRAcetam [Keppra TAB] 500 mg PO Q12HR #60 tablet 09/19/18 Unknown Rx Allergies Allergy/AdvReac Type Severity Reaction Status Date / Time ampicillin Allergy Unknown Verified 09/17/18 01:30 ED Past Medical Hx - Medications Home Medications: Home Medications Medication Instructions Recorded Confirmed Last Taken Type Aspirin EC [Halfprin EC] 81 mg PO QDAY #30 tablet. 09/19/18 Unknown Rx Folic Acid [Folvite] 1 mg PO QDAY #30 tablet 09/19/18 Unknown Rx Pravastatin Sodium [Pravastatin] 10 mg PO QHS #30 tablet 09/19/18 Unknown Rx Thiamine [Vitamin B-1] 100 mg PO QDAY #30 tablet 09/19/18 Unknown Rx amLODIPine [Norvasc] 10 mg PO QDAY #30 tablet 09/19/18 Unknown Rx levETIRAcetam [Keppra TAB] 500 mg PO Q12HR #60 tablet 09/19/18 Unknown Rx - Intubation Time Out Performed: Yes Sedative: other (propofol) Mg Given: 100 Paralytic: Rocuronium Mg Given: 100 Laryngoscope: fiberoptic video scope Size: 4 Assist Device Used: fiberoptic device ET Tube Size: 7.5 Tube Secured Depth (cm): 23 Tube Secured Location: lips Tube Placement Confirmation: visualized tube passing t, equal breath sounds bilat, no breath sounds over epi, confirmation by capnometr Patient Tolerated Procedure: well Intubation Complications: none ED Medical Decision Making - Lab Data Result diagrams: 12/12/18 23:45 12/12/18 23:45 ED Disposition Clinical Impression: Altered mental status, unspecified, Seizure, Alcohol withdrawal delirium Disposition: DC-09 OP ADMIT IP TO THIS HOSP Condition: Critical Referrals: PRIMARY CARE,MD [Primary Care Provider] - 3-5 Days <MANOLO CHRISTIANSON - Last Filed: 12/13/18 05:49> ED General Adult HPI - General Source: patient, EMS ( EMS documentation not available at time of chart dictation ), RN notes reviewed, old records reviewed Mode of arrival: Stretcher Limitations: Altered Mental Status, Other (the patient is a poor historian.) - History of Present Illness Initial comments: this is a 63-year-old gentleman. This patient is not known to this provider previously. The patient has a past medical history of alcohol abuse, seizure, noncompliant with medicines, heavy daily drinker, has been admitted to this hospital in the past for seizures, had essentially negative MRI, and EEG which were unremarkable . The patient is brought to the hospital for possible seizure. In the emergency room, the patient is confused. He doesn't know what happened. He denies physical pain. No family or friends are available at this point time for additional information or collateral information. -: unknown Radiation: other Quality: other Consistency: other Improves with: other ED Review of Systems Comment: Unobtainable due to pts medical conditions Cardiovascular: denies: chest pain Gastrointestinal: denies: abdominal pain Genitourinary: denies: dysuria Neurological: confusion. denies: headache Psychiatric: denies: homicidal thoughts, suicidal thoughts ED Past Medical Hx - Past Medical History Previous Medical History?: Yes Hx Seizures: Yes - Social History Smoking Status: Current Every Day Smoker Substance Use Type: None ED Physical Exam - General Limitations: Altered Mental Status General appearance: alert, anxious - Head Head exam: Present: atraumatic, normocephalic - Eye Eye exam: Present: normal appearance, PERRL, EOMI - ENT ENT exam: Present: normal orophraynx, mucous membranes moist, normal external ear exam, other (no tongue fasciculations noted) - Neck Neck exam: Present: normal inspection, full ROM. Absent: tenderness, meningismus - Respiratory Respiratory exam: Present: normal lung sounds bilaterally. Absent: respiratory distress - Cardiovascular Cardiovascular Exam: Present: regular rate, normal rhythm, normal heart sounds. Absent: bradycardia, tachycardia, irregular rhythm, systolic murmur, diastolic murmur, rubs, gallop - GI/Abdominal GI/Abdominal exam: Present: soft. Absent: distended, tenderness, guarding, rebound, rigid, pulsatile mass - Rectal Rectal exam: Present: deferred - Extremities Exam Extremities exam: Present: normal inspection, full ROM, other (2+ pulses noted in the bilateral upper, lower extremities. There is no long bone tenderness. Musculoskeletal compartments are soft. The pelvis is stable.). Absent: pedal edema, calf tenderness - Back Exam Back exam: Present: normal inspection. Absent: CVA tenderness (R), CVA tenderness (L), paraspinal tenderness, vertebral tenderness - Neurological Exam Neurological exam: Present: altered, other (4 extremities spontaneously. The tongue is midline. Follows commands. Patient does not know his name, does not know where he is, and does not know the date.) - Psychiatric Psychiatric exam: Absent: homicidal ideation, suicidal ideation - Skin Skin exam: Present: warm, dry, intact, normal color. Absent: rash ED Course - Reevaluation(s) Reevaluation #1: 12/13/18 02:08 Differential diagnosis, including not limited to: Seizure, alcohol withdrawal seizure, postictal state, alcohol-related dementia, intracranial injury, cervical spine injury, pneumonia, urinary tract infection, electrolyte derangement Assessment and plan: 63-year-old gentleman with history of alcohol abuse, seizure, noncompliance, with possible seizure. The patient is initially afebrile with reassuring vital signs. He follows commands. His physical exam is unremarkable. While in the emergency room, he had a convulsive event. This terminated on its own. Afterwards, he was somewhat agitated. We will continue his old medications. He will be placed on alcohol withdrawal protocol. He will be loaded with Keppra. He will be placed on hold. Additional imaging studies pending at this time. We will observe the patient pending the aforementioned interventions, and then reassess. This is most likely an exacerbation of his chronic underlying conditions. Reevaluation #2: 12/13/18 04:10 Patient has been progressively agitated. He received a total of 8 mg of Ativan, 5 mg of Haldol, is becoming increasingly agitated, pulling off his leads, and increasingly confused. He is not been able to receive his CT scan so far. In my opinion, it is dangerous to continue sedating the patient, and he will therefore be intubated. He is emergently and administratively consented for in tubation by myself, and intubated by the physician geological survey field assistant. Please see her note for the details of her procedure. CT scan pending. We will discuss with intensive care physician. Reevaluation #3: 12/13/18 04:53 Propanolol is not ordered by myself. There was no verbal or written order for this medication. This is an error. We ordered 100 mg of propofol for rapid se quence induction. Reevaluation #4: 12/13/18 05:49 Case presented to critical care physician, , who agrees with placement into the intensive care unit. Care will be transferred to the oncoming physician, Dr. Gail Morales, to follow up on CT scan brain and cervical spine, and arranged admission to the medical service, if no acute processes identified. - Intubation Additional Comments: Patient placed on nasal cannula at 15 L/m. Receives [id number] ventilation. Induced with 100 mg propofol, paralyzed with 100 mg rocuronium. Towel rolls placed underneath the neck to alignment year to the sternal notch, and video laryngoscopy is performed by the physician geological survey field assistant under my direct supervision. The epiglottis and trachea are easily identified, and a 7.5 endotracheal tube is inserted under direct visualization, with appropriate placement. No obvious complications were noted, and the patient tolerated the procedure well. ED Medical Decision Making - Lab Data Result diagrams: 12/12/18 23:45 12/12/18 23:45 Vital Signs 12/12/18 23:12 Temperature 98.7 F Pulse Rate 70 Respiratory 12 Rate Blood Pressure 145/85 O2 Sat by Pulse 100 Oximetry Lab Results 12/12/18 12/12/18 12/13/18 Range/Units 23:45 23:45 01:02 WBC 4.4 L (4.5-11.0) K/mm3 RBC 3.56 L (3.65-5.03) M/mm3 Hgb 12.3 (11.8-15.2) gm/dl Hct 37.0 (35.5-45.6) % MCV 104 H (84-94) fl MCH 34 H (28-32) pg MCHC 33 (32-34) % RDW 13.9 (13.2-15.2) % Plt Count 286 (140-440) K/mm3 Sodium 138 (137-145) mmol/L Potassium 4.8 (3.6-5.0) mmol/L Chloride 102.3 (98-107) mmol/L Carbon Dioxide 24 (22-30) mmol/L Anion Gap 17 mmol/L BUN 11 (9-20) mg/dL Creatinine 0.6 L (0.8-1.5) mg/dL Estimated GFR > 60 ml/min BUN/Creatinine Ratio 18 % Glucose 120 H (75-100) mg/dL POC Glucose (70-105) Calcium 9.2 (8.4-10.2) mg/dL Magnesium 2.20 (1.7-2.3) mg/dL Total Creatine Kinase 447 H (55-170) units/L Urine Color (Yellow) Urine Turbidity (Clear) Urine pH (5.0-7.0) Ur Specific [place] (1.003-1.030) Urine Protein (Negative) mg/dL Urine Glucose (UA) (Negative) mg/dL Urine Ketones (Negative) mg/dL Urine Blood (Negative) Urine Nitrite (Negative) Urine Bilirubin (Negative) Urine Urobilinogen (<2.0) mg/dL Ur Leukocyte Esterase (Negative) Urine WBC (Auto) (0.0-6.0) /HPF Urine RBC (Auto) (0.0-6.0) /HPF U Epithel Cells (Auto) (0-13.0) /HPF Salicylates (2.8-20.0) mg/dL Urine Opiates Screen Urine Methadone Screen Acetaminophen (10.0-30.0) ug/mL Ur Barbiturates Screen Ur Phencyclidine Scrn Ur Amphetamines Screen U Benzodiazepines Scrn Urine Cocaine Screen U Marijuana (THC) Screen Drugs of Abuse Note Plasma/Serum Alcohol (0-0.07) % 12/13/18 12/13/18 12/13/18 Range/Units 01:02 01:02 01:02 WBC (4.5-11.0) K/mm3 RBC (3.65-5.03) M/mm3 Hgb (11.8-15.2) gm/dl Hct (35.5-45.6) % MCV (84-94) fl MCH (28-32) pg MCHC (32-34) % RDW (13.2-15.2) % Plt Count (140-440) K/mm3 Sodium (137-145) mmol/L Potassium (3.6-5.0) mmol/L Chloride (98-107) mmol/L Carbon Dioxide (22-30) mmol/L Anion Gap mmol/L BUN (9-20) mg/dL Creatinine (0.8-1.5) mg/dL Estimated GFR ml/min BUN/Creatinine Ratio % Glucose (75-100) mg/dL POC Glucose (70-105) Calcium (8.4-10.2) mg/dL Magnesium (1.7-2.3) mg/dL Total Creatine Kinase (55-170) units/L Urine Color (Yellow) Urine Turbidity (Clear) Urine pH (5.0-7.0) Ur Specific [place] (1.003-1.030) Urine Protein (Negative) mg/dL Urine Glucose (UA) (Negative) mg/dL Urine Ketones (Negative) mg/dL Urine Blood (Negative) Urine Nitrite (Negative) Urine Bilirubin (Negative) Urine Urobilinogen (<2.0) mg/dL Ur Leukocyte Esterase (Negative) Urine WBC (Auto) (0.0-6.0) /HPF Urine RBC (Auto) (0.0-6.0) /HPF U Epithel Cells (Auto) (0-13.0) /HPF Salicylates < 0.3 L (2.8-20.0) mg/dL Urine Opiates Screen Urine Methadone Screen Acetaminophen < 5.0 L (10.0-30.0) ug/mL Ur Barbiturates Screen Ur Phencyclidine Scrn Ur Amphetamines Screen U Benzodiazepines Scrn Urine Cocaine Screen U Marijuana (THC) Screen Drugs of Abuse Note Plasma/Serum Alcohol < 0.01 (0-0.07) % 12/13/18 12/13/18 12/13/18 Range/Units 01:14 Unknown Unknown WBC (4.5-11.0) K/mm3 RBC (3.65-5.03) M/mm3 Hgb (11.8-15.2) gm/dl Hct (35.5-45.6) % MCV (84-94) fl MCH (28-32) pg MCHC (32-34) % RDW (13.2-15.2) % Plt Count (140-440) K/mm3 Sodium (137-145) mmol/L Potassium (3.6-5.0) mmol/L Chloride (98-107) mmol/L Carbon Dioxide (22-30) mmol/L Anion Gap mmol/L BUN (9-20) mg/dL Creatinine (0.8-1.5) mg/dL Estimated GFR ml/min BUN/Creatinine Ratio % Glucose (75-100) mg/dL POC Glucose 105 (70-105) Calcium (8.4-10.2) mg/dL Magnesium (1.7-2.3) mg/dL Total Creatine Kinase (55-170) units/L Urine Color Yellow (Yellow) Urine Turbidity Clear (Clear) Urine pH 5.0 (5.0-7.0) Ur Specific [place] 1.016 (1.003-1.030) Urine Protein 30 mg/dl (Negative) mg/dL Urine Glucose (UA) Neg (Negative) mg/dL Urine Ketones Neg (Negative) mg/dL Urine Blood Neg (Negative) Urine Nitrite Neg (Negative) Urine Bilirubin Neg (Negative) Urine Urobilinogen < 2.0 (<2.0) mg/dL Ur Leukocyte Esterase Sm (Negative) Urine WBC (Auto) 24.0 H (0.0-6.0) /HPF Urine RBC (Auto) 6.0 (0.0-6.0) /HPF U Epithel Cells (Auto) 1.0 (0-13.0) /HPF Salicylates (2.8-20.0) mg/dL Urine Opiates Screen Presumptive negative Urine Methadone Screen Presumptive negative Acetaminophen (10.0-30.0) ug/mL Ur Barbiturates Screen Presumptive negative Ur Phencyclidine Scrn Presumptive negative Ur Amphetamines Screen Presumptive negative U Benzodiazepines Scrn Presumptive negative Urine Cocaine Screen Presumptive negative U Marijuana (THC) Screen Presumptive negative Drugs of Abuse Note Disclamer Plasma/Serum Alcohol (0-0.07) % - EKG Data -: EKG Interpreted by Ms EKG shows normal: sinus rhythm Rate: tachycardia - EKG Data 12/13/18 02:09 The EKG has motion artifact. This is a sinus tachycardia, 132 bpm, QTC is 484 ms, there are peaked T waves, there is left ventricular hypertrophy, there is tachycardia, the EKG is abnormal, there is motion artifact, the EKG is not consistent with ST elevation myocardial infarction. The EKG today appears to be grossly unchanged from prior EKG from 09/18/2018. - Radiology Data Radiology results: report reviewed, image reviewed Print Report Referring Physician: MANOLO CHRISTIANSON Patient Name: ZEINA BOWER Date of : 1955 Sex: Male Report Date: 2018-12-13 Report Status: Finalized Findings [facility] [address] [place] [address] XRay Report Signed Patient: ZEINA BOWER MR#: [id number] 29 : 1955 Acct:[id number] Age/Sex: 63 / M ADM Date: 12/12/18 Loc: ED Attending Dr: Ordering Physician: MANOLO CHRISTIANSON MD Date of Service: 12/13/18 Procedure(s): XR chest 1V ap Accession Number(s): [id number] cc: MANOLO CHRISTIANSON MD Fluoro Time In Minutes: CHEST 1 VIEW INDICATION / CLINICAL INFORMATION: sz weak confusion tachycardia. COMPARISON: None available. FINDINGS: SUPPORT DEVICES: None. HEART / MEDIASTINUM: No significant abnormality. LUNGS / PLEURA: No significant pulmonary or pleural abnormality. No pneumothorax. ADDITIONAL FINDINGS: Densities project over the axillary portion of the left hemithorax may be related to old rib fractures. IMPRESSION: 1. No acute findings. Signer Name: Kian Wilcox MD Signed: 12/13/2018 1:19 AM Workstation Name: [id number] Transcribed By: [place] Dictated By: Kian Wilcox MD Electronically Authenticated By: Kian Wilcox MD Signed Date/Time: 12/13/18118 DD/ 6 Critical Care Time: Yes Critical care time in (mins) excluding proc time.: 65 ED Disposition Is pt being admited?: Yes <ALBERTO MORALES - Last Filed: 12/13/18 08:17> ED General Adult HPI - History of Present Illness Initial comments: Mr. Bower is a 63 years old male with has a past medical history of alcohol abu se, seizure, noncompliant with medicines, heavy daily drinker signed out to me by my colleague . Patient Has been admitted to this hospital in the past for seizures, had essentially negative MRI, and EEG which were unremarkable. The patient is brought to the hospital for possible seizure and symptoms of alcohol withdrawal In the emergency room, the patient is confused and agitated and require excessive sedation and finally patient was intubated. Patient labs reviewed and is unremarkable. CT brain is negative for acute finding. CT C-spine is negative for acute finding. I discussed the patient with Dr. Knight, he agreed to admit the patient to the hospital for further management. ED Review of Systems ROS: Stated complaint: SEIZURE Other details as noted in HPI ED Course Vital Signs 12/12/18 12/12/18 12/12/18 23:10 23:12 23:15 Temperature 98.7 F Pulse Rate 67 70 67 Respiratory 10 L 12 17 Rate Blood Pressure 145/85 146/86 O2 Sat by Pulse 100 100 97 Oximetry 12/12/18 12/12/18 12/13/18 23:30 23:45 00:00 Temperature Pulse Rate 63 61 61 Respiratory 19 12 19 Rate Blood Pressure 147/84 156/87 156/86 O2 Sat by Pulse 98 99 100 Oximetry 12/13/18 12/13/18 12/13/18 00:15 00:30 00:45 Temperature Pulse Rate 58 L 59 L 56 L Respiratory 18 15 16 Rate Blood Pressure 159/80 157/84 151/84 O2 Sat by Pulse 100 100 100 Oximetry 12/13/18 12/13/18 12/13/18 01:00 01:16 01:30 Temperature Pulse Rate 105 H 103 H Respiratory 10 L 21 23 Rate Blood Pressure 151/84 211/107 98/77 O2 Sat by Pulse 95 98 Oximetry 12/13/18 12/13/18 12/13/18 01:46 02:00 03:28 Temperature Pulse Rate 133 H 133 H 129 H Respiratory 17 17 17 Rate Blood Pressure 98/77 146/104 146/104 O2 Sat by Pulse 96 84 Oximetry 12/13/18 12/13/18 12/13/18 03:30 03:46 04:00 Temperature Pulse Rate 129 H 149 H Respiratory 26 H 19 Rate Blood Pressure 146/104 173/95 213/136 O2 Sat by Pulse 96 97 100 Oximetry 12/13/18 12/13/18 12/13/18 04:15 04:17 04:30 Temperature Pulse Rate 134 H 129 H 126 H Respiratory 10 L 16 Rate Blood Pressure 159/113 152/107 O2 Sat by Pulse 100 100 100 Oximetry 12/13/18 12/13/18 12/13/18 04:45 05:20 05:30 Temperature Pulse Rate 132 H 135 H 141 H Respiratory 16 13 20 Rate Blood Pressure 169/110 165/111 165/111 O2 Sat by Pulse 100 100 100 Oximetry 12/13/18 12/13/18 12/13/18 05:46 06:00 06:15 Temperature Pulse Rate 134 H 130 H 106 H Respiratory 15 16 15 Rate Blood Pressure 140/97 141/95 147/101 O2 Sat by Pulse 100 100 100 Oximetry 12/13/18 12/13/18 12/13/18 06:30 06:46 07:00 Temperature Pulse Rate 100 H 109 H 96 H Respiratory 16 14 14 Rate Blood Pressure 143/91 175/117 175/117 O2 Sat by Pulse 100 100 100 Oximetry 12/13/18 12/13/18 07:15 07:30 Temperature Pulse Rate 89 86 Respiratory 12 14 Rate Blood Pressure 154/93 156/92 O2 Sat by Pulse 100 100 Oximetry ED Medical Decision Making - Lab Data Result diagrams: 12/12/18 23:45 12/12/18 23:45 Critical care attestation.: If time is entered above; I have spent that time in minutes in the direct care of this critically ill patient, excluding procedure time.
[2018-12-13] MEDS ORDERED: D5/0.45NS 1,000 ML IV SCH (01:00)
--- NOTE | 2018-12-13 01:24 | XRay Report ---
CHEST 1 VIEW INDICATION / CLINICAL INFORMATION: sz weak confusion tachycardia. COMPARISON: None available. FINDINGS: SUPPORT DEVICES: None. HEART / MEDIASTINUM: No significant abnormality. LUNGS / PLEURA: No significant pulmonary or pleural abnormality. No pneumothorax. ADDITIONAL FINDINGS: Densities project over the axillary portion of the left hemithorax may be relate d to old rib fractures. IMPRESSION: 1. No acute findings. Signer Name: Kian Wilcox MD Signed: 12/13/2018 1:19 AM Workstation Name: [email or web address]-[email or web address] [facility]
[2018-12-13] MEDS: ATIVAN IV PRN ×4 (01:26→23:36)
[2018-12-13 01:35] LABS: Bilirubin,Urine NEG (Negative); Blood,Urine NEG (Negative); Color,Urine Yellow (Yellow); Urobilinogen,Urine < 2.0 mg/dL (<2.0)
[2018-12-13 01:42] LABS: Amphetamine Screen,Urine PRESUMPTIVE NEGATIVE; Benzodiazepines Screen,Urine PRESUMPTIVE NEGATIVE; Cannabinoid Screen,Urine PRESUMPTIVE NEGATIVE; Cocaine Screen,Urine PRESUMPTIVE NEGATIVE; Methadone Screen,Urine PRESUMPTIVE NEGATIVE; Opiate Screen,Urine PRESUMPTIVE NEGATIVE
[2018-12-13] MEDS ORDERED: MACROBID PO ONE (02:10)
[2018-12-13] MEDS ORDERED: HALDOL ONE (02:46)
[2018-12-13] MEDS ORDERED: ZEMURON IV ONE ×2 (03:40→11:57)
[2018-12-13] MEDS ORDERED: INDERAL IV ONE (03:40)
[2018-12-13] MEDS ORDERED: DIPRIVAN 10 MG/ML IV ONE ×2 (03:50→04:53)
[2018-12-13] MEDS ORDERED: VASELINE LIP THERAPY TP PRN (04:07)
[2018-12-13] MEDS ORDERED: SUBLIMAZE IV PRN (04:07)
[2018-12-13] MEDS ORDERED: ARTIFICIAL TEARS OPHTH OINT OU PRN (04:07)
--- NOTE | 2018-12-13 04:37 | XRay Report ---
CHEST 1 VIEW INDICATION / CLINICAL INFORMATION: ETT placement. COMPARISON: 12/13/2018 at 0059 hours FINDINGS: SUPPORT DEVICES: The tip of the endotracheal tube is 5 cm above the tania. HEART / MEDIASTINUM: No significant abnormality. LUNGS / PLEURA: No significant pulmonary or pleural abnormality. No pneumothorax. ADDITIONAL FINDINGS: No significant additional findings. IMPRESSION: 1. No acute findings. Signer Name: Kian Wilcox MD Signed: 12/13/2018 4:32 AM Workstation Name: [facility]
[2018-12-13] MEDS ORDERED: fentaNYL DRIP Premix 2,000 MCG/100 ML BAG IV SCH (05:00)
[2018-12-13] MEDS ORDERED: ATIVAN 100 MG in NACL 0.9% 50 ML, VIAFLEX EMPTY CONTAINER 0 ML IV SCH (05:00)
[2018-12-13] MEDS ORDERED: DIPRIVAN 10 MG/ML 1,000 MG/100 ML BOTTLE IV SCH (06:00)
--- NOTE | 2018-12-13 06:06 | Cat Scan Report ---
CT head/brain wo con INDICATION / CLINICAL INFORMATION: Seizure. TECHNIQUE: All CT scans at this location are performed using CT dose reduction for ALARA by means of automated e xposure control. COMPARISON: 09/17/2018 FINDINGS: No intracranial hemorrhage or mass effect. Extra-axial CSF spaces are normal. No ventricular enlargement. No evidence of territorial infarction. There are prominent white matter hypodensities in both frontal lobes, unchanged from the comparison s tudy. Mucosal thickening is seen in the ethmoid sinuses. No skeletal abnormality. IMPRESSION: 1. No acute findings or interval change. 2. Prominent bifrontal white matter hypoattenuation. Signer Name: Kian Wilcox MD Signed: 12/13/2018 6:01 AM Workstation Name: [id number]
--- NOTE | 2018-12-13 06:08 | Cat Scan Report ---
CT cervical spine wo con INDICATION / CLINICAL INFORMATION: Seizure. TECHNIQUE: All CT scans at this location are performed using CT dose reduction for ALARA by means of automated e xposure control. COMPARISON: None available. FINDINGS: No cervical fracture. There are hypertrophic degenerative changes at C2-C3, C5-C6 and C6-C7. Alignment is normal. IMPRESSION: 1. Degenerative changes with no evidence of cervical fracture or subluxation. Signer Name: Kian Wilcox MD Signed: 12/13/2018 6:03 AM Workstation Name: [id number]
[2018-12-13 06:53] LABS: ABG Base Excess -0.3 mmol/L (-2.0-3.0); ABG HCO3 24.7 mmol/L (20.0-26.0); ABG Methemoglobin 0.6 % (0.0-1.5); ABG Oxygen Saturation 99.3 % (95.0-99.0); ABG PCO2 41.4 mm Hg; ABG PH 7.393 pH Units (7.350-7.450)
--- NOTE | 2018-12-13 08:28 | History and Physical Report ---
History of Present Illness Date of examination: 12/13/18 Date of admission: 12/13/18 Chief complaint: AMS History of present illness: Information from chart review and ED note. Patient is a 63-year-old man with history of alcohol abuse, Seizure disorder, per his children he is not compliant with his antiseizure meds. The patient is initially afebrile with reassuring vital signs. He follows commands. His physical exam is unremarkable. While in the emergency room, he had a convulsive event Thought to be secondary to possible seizure and symptoms of alcohol wit hdrawal In the emergency room, the patient is confused and agitated and require excessive sedation and finally patient was intubated. Patient labs reviewed and is unremarkable. CT brain is negative for acute finding. CT C-spine is negative for acute finding. In the ED the patient was loaded with keepra, during reevaluation patient had been progressively agitated. He received a total of 8 mg of Ativan, 5 mg of Haldol, is becoming increasingly agitated, pulling off his leads, and increasing ly confused. Per ED doc " In my opinion, it is dangerous to continue sedating the patient, and he will therefore be intubated. He is emergently and administratively consented for intubation by myself, and intubated by the physician learning support assistant" Past History Past Medical History: hypertension, hyperlipidemia, seizures, other (etoh dependance) Past Surgical History: appendectomy Social history: alcohol abuse Family history: no significant family history Medications and Allergies Allergies Allergy/AdvReac Type Severity Reaction Status Date / Time ampicillin Allergy Unknown Verified 09/17/18 01:30 Home Medications Medication Instructions Recorded Confirmed Last Taken Type Aspirin EC [Halfprin EC] 81 mg PO QDAY #30 tablet. 09/19/18 Unknown Rx Folic Acid [Folvite] 1 mg PO QDAY #30 tablet 09/19/18 Unknown Rx Pravastatin Sodium [Pravastatin] 10 mg PO QHS #30 tablet 09/19/18 Unknown Rx Thiamine [Vitamin B-1] 100 mg PO QDAY #30 tablet 09/19/18 Unknown Rx amLODIPine [Norvasc] 10 mg PO QDAY #30 tablet 09/19/18 Unknown Rx levETIRAcetam [Keppra TAB] 500 mg PO Q12HR #60 tablet 09/19/18 Unknown Rx Active Meds: Active Medications Amlodipine Besylate (Norvasc) 10 mg PO QDAY KOTA Chlordiazepoxide HCl (Librium) 50 mg PO Q1HR PRN PRN Reason: CIWA-Ar 8-15 Fentanyl (Sublimaze) 50 mcg IV Q10MIN PRN PRN Reason: ANALGESIA Last Admin: 12/13/18 05:58 Dose: 50 mcg Documented by: Folic Acid (Folvite) 1 mg PO QDAY KOTA Haloperidol Lactate (Haldol) 5 mg IM Q6HR PRN PRN Reason: Agitation Hydrophilic Ointment (Vaseline Lip Therapy) 1 applic TP Q2HR PRN PRN Reason: Dry Lips Dextrose/Sodium Chloride (D5/0.45ns) 1,000 mls @ 0 mls/hr IV DIRECT KOTA Fentanyl Citrate (Fentanyl Drip Premix) 2,000 mcg in 100 mls @ 3.561 mls/hr IV TITR KOTA; Protocol Lorazepam 100 mg/ Sodium Chloride/ Miscellaneous Information 100 mls @ 1 mls/hr IV TITR KOTA; Protocol Last Admin: 12/13/18 05:30 Dose: 5 mg/hr, 5 mls/hr Documented by: Propofol (Diprivan 10 Mg/Ml) 1,000 mg in 100 mls @ 2.136 mls/hr IV TITR KOTA; Protocol Last Admin: 12/13/18 05:55 Dose: 5 mcg/kg/min, 2.136 mls/hr Documented by: Levetiracetam (Keppra) 500 mg PO Q12HR KOTA Lorazepam (Ativan) 2 mg IV Q1HR PRN PRN Reason: CIWA-Ar 8-15 Lorazepam (Ativan) 4 mg IV Q1HR PRN PRN Reason: CIWA-Ar 16-25 Last Admin: 12/13/18 01:26 Dose: 4 mg Documented by: Lorazepam (Ativan) 4 mg IV Q15MIN PRN PRN Reason: CIWA-Ar >25 Last Admin: 12/13/18 02:26 Dose: 4 mg Documented by: Lorazepam (Ativan) 2 mg IV Q10MIN PRN PRN Reason: Agitation Multi-Ingred Cream/Lotion/Oil/Oint (Artificial Tears Ophth Oint) 1 applic OU Q4HR PRN PRN Reason: Dry Eye(s) Pravastatin Sodium (Pravachol) 10 mg PO QHS KOTA Thiamine HCl (Vitamin B-1) 100 mg PO QDAY KOTA Review of Systems ROS unobtainable: due to endotracheal tube, due to mental status Exam - Constitutional Vitals: Temp Pulse Resp BP Pulse Ox 98.7 F 86 14 156/92 100 12/12/18 23:12 12/13/18 07:30 12/13/18 07:30 12/13/18 07:30 12/13/18 07:30 Results - Labs CBC & Chem 7: 12/12/18 23:45 12/12/18 23:45 Labs: Laboratory Last Values WBC 4.4 K/mm3 (4.5-11.0) L 12/12/18 23:45 RBC 3.56 M/mm3 (3.65-5.03) L 12/12/18 23:45 Hgb 12.3 gm/dl (11.8-15.2) 12/12/18 23:45 Hct 37.0 % (35.5-45.6) 12/12/18 23:45 MCV 104 fl (84-94) H 12/12/18 23:45 MCH 34 pg (28-32) H 12/12/18 23:45 MCHC 33 % (32-34) 12/12/18 23:45 RDW 13.9 % (13.2-15.2) 12/12/18 23:45 Plt Count 286 K/mm3 (140-440) 12/12/18 23:45 ABG pH 7.393 pH Units (7.350-7.450) 12/13/18 Unknown ABG pCO2 41.4 mm Hg 12/13/18 Unknown ABG pO2 219.0 mm Hg (80.0-90.0) H 12/13/18 Unknown ABG HCO3 24.7 mmol/L (20.0-26.0) 12/13/18 Unknown ABG O2 Saturation 99.3 % (95.0-99.0) H 12/13/18 Unknown ABG O2 Content 17.9 (0.0-44) 12/13/18 Unknown ABG Base Excess -0.3 mmol/L (-2.0-3.0) 12/13/18 Unknown ABG Hemoglobin 12.7 gm/dl (14.0-18.0) L 12/13/18 Unknown ABG Carboxyhemoglobin 1.2 % (0.0-5.0) 12/13/18 Unknown ABG Methemoglobin 0.6 % (0.0-1.5) 12/13/18 Unknown Oxyhemoglobin 97.6 % (95.0-99.0) 12/13/18 Unknown FiO2 60 % 12/13/18 Unknown Sodium 138 mmol/L (137-145) 12/12/18 23:45 Potassium 4.8 mmol/L (3.6-5.0) 12/12/18 23:45 Chloride 102.3 mmol/L (98-107) 12/12/18 23:45 Carbon Dioxide 24 mmol/L (22-30) 12/12/18 23:45 Anion Gap 17 mmol/L 12/12/18 23:45 BUN 11 mg/dL (9-20) 12/12/18 23:45 Creatinine 0.6 mg/dL (0.8-1.5) L 12/12/18 23:45 Estimated GFR > 60 ml/min 12/12/18 23:45 BUN/Creatinine Ratio 18 % 12/12/18 23:45 Glucose 120 mg/dL (75-100) H 12/12/18 23:45 POC Glucose 105 (70-105) 12/13/18 01:14 Calcium 9.2 mg/dL (8.4-10.2) 12/12/18 23:45 Magnesium 2.20 mg/dL (1.7-2.3) 12/13/18 01:02 Total Creatine Kinase 447 units/L (55-170) H 12/13/18 01:02 Urine Color Yellow (Yellow) 12/13/18 Unknown Urine Turbidity Clear (Clear) 12/13/18 Unknown Urine pH 5.0 (5.0-7.0) 12/13/18 Unknown Ur Specific [place] 1.016 (1.003-1.030) 12/13/18 Unknown Urine Protein 30 mg/dl mg/dL (Negative) 12/13/18 Unknown Urine Glucose (UA) Neg mg/dL (Negative) 12/13/18 Unknown Urine Ketones Neg mg/dL (Negative) 12/13/18 Unknown Urine Blood Neg (Negative) 12/13/18 Unknown Urine Nitrite Neg (Negative) 12/13/18 Unknown Urine Bilirubin Neg (Negative) 12/13/18 Unknown Urine Urobilinogen < 2.0 mg/dL (<2.0) 12/13/18 Unknown Ur Leukocyte Esterase Sm (Negative) 12/13/18 Unknown Urine WBC (Auto) 24.0 /HPF (0.0-6.0) H 12/13/18 Unknown Urine RBC (Auto) 6.0 /HPF (0.0-6.0) 12/13/18 Unknown U Epithel Cells (Auto) 1.0 /HPF (0-13.0) 12/13/18 Unknown Salicylates < 0.3 mg/dL (2.8-20.0) L 12/13/18 01:02 Urine Opiates Screen Presumptive negative 12/13/18 Unknown Urine Methadone Screen Presumptive negative 12/13/18 Unknown Acetaminophen < 5.0 ug/mL (10.0-30.0) L 12/13/18 01:02 Ur Barbiturates Screen Presumptive negative 12/13/18 Unknown Ur Phencyclidine Scrn Presumptive negative 12/13/18 Unknown Ur Amphetamines Screen Presumptive negative 12/13/18 Unknown U Benzodiazepines Scrn Presumptive negative 12/13/18 Unknown Urine Cocaine Screen Presumptive negative 12/13/18 Unknown U Marijuana (THC) Screen Presumptive negative 12/13/18 Unknown Drugs of Abuse Note Disclamer 12/13/18 Unknown Plasma/Serum Alcohol < 0.01 % (0-0.07) 12/13/18 01:02 Assessment and Plan Assessment and plan: Patient is a 63-year-old man with history of alcohol abuse, Seizure disorder, per his children he is not compliant with his antiseizure meds. The patient is initially afebrile with reassuring vital signs. He follows commands. His physical exam is unremarkable. While in the emergency room, he had a convulsive event Thought to be secondary to possible seizure and symptoms of alcohol w ithdrawal In the emergency room, the patient is confused and agitated and require excessive sedation and finally patient was intubated. Patient labs reviewed and is unremarkable. CT brain is negative for acute finding. CT C- spine is negative for acute finding. * In the ED the patient was loaded with keepra, during reevaluation patient had been progressively agitated. He received a total of 8 mg of Ativan, 5 mg of Haldol, is becoming increasingly agitated, pulling off his leads, and increas ingly confused. Per ED doc " In my opinion, it is dangerous to continue sedating the patient, and he will therefore be intubated. He is emergently and administratively consented for intubation by myself, and intubated by the physician learning support assistant" CT Head without contrast. No acute findings or interval change. Prominent bifrontal white matter hypoattenuation. KUB: Satisfactory placement of nasogastric tube. CT Cervical spine: Degenerative changes with no evidence of cervical fracture or subluxation. Status epilepticus Acute metabolic encephalopathy due to postictal state Alcohol abuse/dependence SIRS without organ dysfunction Acute Cystitis Hypertensive urgency Moderate malnutrition Rhabdomylsis Plan Admit to ICU as patient is intubated for airway protection reasons Consult heading matcher and assembler and Neurology consult Continue CIWA protocol Continue Keppra iv and other home meds Abx IV and await Urine culture Wean from the vent when possible Monitor and correct electrolytes Counselling on compliance Resume home BP meds Iv Hydralazine DVT/GI prophy The high probability of a clinically significant, sudden or life threatening deterioration of the [nEURO] system(s) required my full and direct attention, intervention and personal management. The aggregate critical care time was [35] minutes. This time is in addition to time spent performing reported procedures but includes the following: [X] Data Review and interpretation [X] Patient assessment and monitoring of vital signs [X] Documentation [X] Medication orders and management Advance Directives: Yes Plan of care discussed with patient/family: Yes
[2018-12-13] MEDS ORDERED: SODIUM CHLORIDE FLUSH SYRINGE 10 ML IV PRN (08:30)
--- NOTE | 2018-12-13 09:41 | Consultation ---
History of Present Illness Consult date: 12/13/18 Requesting physician: LO CHERY History of present illness: History of present illness: Information from chart review and ED note-unable to obtain, patient is sedated on propofol and lorazepam. Patient is a 63-year-old man with history of alcohol abuse, Seizure disorder, per his children he is not compliant with his antiseizure meds. The patient is initially afebrile with reassuring vital signs. He follows commands. His physical exam is unremarkable. While in the emergency room, he had a convulsive event Thought to be secondary to possible seizure and symptoms of alcohol withdrawal In the emergency room, the patient is confused and agitated and require excessive sedation and finally patient was intubated. Patient labs reviewed and is unremarkable. CT brain is negative for acute finding. CT C-spi ne is negative for acute finding. In the ED the patient was loaded with keepra, during reevaluation patient had been progressively agitated. He received a total of 8 mg of Ativan, 5 mg of Haldol, is becoming increasingly agitated, pulling off his leads, and increasingly confused. Per ED doc " In my opinion, it is dangerous to continue sedating the patient, and he will therefore be intubated. He is emergently and administratively consented for intubation by myself, and intubated by the physic davina child welfare assistant" I have been consulted fro critical care and ventilator management. Dr. Renee had called me. Patient was seen and examined in the ED. Vital signs, labs, medications, chart and imaging reviewed. He is currently sedated, orally intubated and does not appear to be in any distress. Lung mechanics on MVS is acceptable. Medications and Allergies Allergies Allergy/AdvReac Type Severity Reaction Status Date / Time ampicillin Allergy Unknown Verified 09/17/18 01:30 Home Medications Medication Instructions Recorded Confirmed Last Taken Type Aspirin EC [Halfprin EC] 81 mg PO QDAY #30 tablet. 09/19/18 Unknown Rx Folic Acid [Folvite] 1 mg PO QDAY #30 tablet 09/19/18 Unknown Rx Pravastatin Sodium [Pravastatin] 10 mg PO QHS #30 tablet 09/19/18 Unknown Rx Thiamine [Vitamin B-1] 100 mg PO QDAY #30 tablet 09/19/18 Unknown Rx amLODIPine [Norvasc] 10 mg PO QDAY #30 tablet 09/19/18 Unknown Rx levETIRAcetam [Keppra TAB] 500 mg PO Q12HR #60 tablet 09/19/18 Unknown Rx Active Meds: Active Medications Amlodipine Besylate (Norvasc) 10 mg PO QDAY KOTA Aspirin (Halfprin Ec) 81 mg PO QDAY KOTA Chlordiazepoxide HCl (Librium) 50 mg PO Q1HR PRN PRN Reason: CIWA-Ar 8-15 Fentanyl (Sublimaze) 50 mcg IV Q10MIN PRN PRN Reason: ANALGESIA Last Admin: 12/13/18 05:58 Dose: 50 mcg Documented by: Folic Acid (Folvite) 1 mg PO QDAY KOTA Haloperidol Lactate (Haldol) 5 mg IM Q6HR PRN PRN Reason: Agitation Hydrophilic Ointment (Vaseline Lip Therapy) 1 applic TP Q2HR PRN PRN Reason: Dry Lips Dextrose/Sodium Chloride (D5/0.45ns) 1,000 mls @ 0 mls/hr IV DIRECT KOTA Fentanyl Citrate (Fentanyl Drip Premix) 2,000 mcg in 100 mls @ 3.561 mls/hr IV TITR KOTA; Protocol Lorazepam 100 mg/ Sodium Chloride/ Miscellaneous Information 100 mls @ 1 mls/hr IV TITR KOTA; Protocol Last Admin: 12/13/18 05:30 Dose: 5 mg/hr, 5 mls/hr Documented by: Propofol (Diprivan 10 Mg/Ml) 1,000 mg in 100 mls @ 2.136 mls/hr IV TITR KOTA; Protocol Last Admin: 12/13/18 05:55 Dose: 5 mcg/kg/min, 2.136 mls/hr Documented by: Ceftriaxone Sodium (Rocephin/Ns 1 Gm/50 Ml) 1 gm in 50 mls @ 100 mls/hr IV Q24HR KOTA; Protocol Levetiracetam (Keppra) 500 mg PO Q12HR KOTA Lorazepam (Ativan) 2 mg IV Q1HR PRN PRN Reason: CIWA-Ar 8-15 Lorazepam (Ativan) 4 mg IV Q1HR PRN PRN Reason: CIWA-Ar 16-25 Last Admin: 12/13/18 01:26 Dose: 4 mg Documented by: Lorazepam (Ativan) 4 mg IV Q15MIN PRN PRN Reason: CIWA-Ar >25 Last Admin: 12/13/18 02:26 Dose: 4 mg Documented by: Lorazepam (Ativan) 2 mg IV Q10MIN PRN PRN Reason: Agitation Multi-Ingred Cream/Lotion/Oil/Oint (Artificial Tears Ophth Oint) 1 applic OU Q4HR PRN PRN Reason: Dry Eye(s) Pravastatin Sodium (Pravachol) 10 mg PO QHS KOTA Sodium Chloride (Sodium Chloride Flush Syringe 10 Ml) 10 ml IV BID KOTA Sodium Chloride (Sodium Chloride Flush Syringe 10 Ml) 10 ml IV PRN PRN PRN Reason: LINE FLUSH Thiamine HCl (Vitamin B-1) 100 mg PO QDAY KOTA Review of Systems ROS unobtainable: due to endotracheal tube, due to mental status Physical Examination Vital signs: Vital Signs Pulse Resp Pulse Ox 67 10 L 100 12/12/18 23:10 12/12/18 23:10 12/12/18 23:10 Reviewed General appearance: no acute distress, asleep Eyes: non-icteric ENT: oropharynx dry Neck: supple, no lymphadenopathy, no JVD Effort: normal Ascultation: Bilateral: clear, diminished breath sounds Cardiovascular: other (Tachycardia, S1,S2, no murmurs, gallops or rubs) Gastrointestinal: normoactive bowel sounds, soft, non-tender, non-distended Integumentary: normal Extremities: no cyanosis, no edema, pulses normal unable to assess (seadted) other (sedated) Results - Laboratory Findings CBC and BMP: 12/12/18 23:45 12/12/18 23:45 ABG ABG pH 7.393 pH Units (7.350-7.450) 12/13/18 Unknown ABG pCO2 41.4 mm Hg 12/13/18 Unknown ABG pO2 219.0 mm Hg (80.0-90.0) H 12/13/18 Unknown ABG O2 Saturation 99.3 % (95.0-99.0) H 12/13/18 Unknown Abnormal lab findings: Abnormal Labs 12/12/18 12/12/18 12/13/18 23:45 23:45 01:02 WBC 4.4 L RBC 3.56 L MCV 104 H MCH 34 H ABG pO2 ABG O2 Saturation ABG Hemoglobin Creatinine 0.6 L Glucose 120 H Total Creatine Kinase 447 H Urine WBC (Auto) Salicylates Acetaminophen 12/13/18 12/13/18 12/13/18 01:02 01:02 Unknown WBC RBC MCV MCH ABG pO2 ABG O2 Saturation ABG Hemoglobin Creatinine Glucose Total Creatine Kinase Urine WBC (Auto) 24.0 H Salicylates < 0.3 L Acetaminophen < 5.0 L 12/13/18 Unknown WBC RBC MCV MCH ABG pO2 219.0 H ABG O2 Saturation 99.3 H ABG Hemoglobin 12.7 L Creatinine Glucose Total Creatine Kinase Urine WBC (Auto) Salicylates Acetaminophen Assessment and Plan Acute hypoxic respiratory failure on MVS Status epilepticus Acute metabolic encephalopathy due to postictal state Alcohol abuse/dependence SIRS without organ dysfunction Acute Cystitis Hypertensive urgency Moderate malnutrition Rhabdomylsis Plan Admit to ICU VAP bundle addressed Aspiration precautions, HOB>40 Supplemental oxygen wean for O2 sast>90% Bronchodilators per protocol Mobility for pressure ulcer prevention SAT/SBT Titrate propofol to RAAS -1 Stop lorazepam Aspiration precatuions Place NGT for medications and nutritional support VTE prophylaxis Stress ulcer prophylaxis Resume all chronic home medications Blood pressure control Accuchecks with glycemic control, target blood glucose 140-180mg/dL Avoid hypoglycemia Delong cultures, follow results Empiric antibiotic therapy, de-escalate based on cultures CXR, ABG in am Continue CIWA protocol Continue Keppra iv and other home meds Abx IV and await Urine culture Wean from the vent when possible Monitor and correct electrolytes Counselling on substance abuse ad medical therapy adherence once he is extubated Discussed with hospitalist service Discussed with R/RN- plan to hold sedation and assess fro readiness for liberation from MVS today, if he fails, place back on mechanical ventilatory support. CONDITION: CRITICAL PROGNOSIS: GUARDED CODE STATUS: FULL CODE The high probability of a clinically significant, sudden or life threatening deterioration of the [Respiratoy, Neurology] system(s) required my full and direct attention, intervention and personal management. The aggregate critical care time was [35] minutes. This time is in addition to time spent performing reported procedures but includes the following: [X] Data Review and interpretation [X] Patient assessment and monitoring of vital signs [X] Documentation [X] Medication orders and management Advance Directives: Yes
[2018-12-13] MEDS ORDERED: KEPPRA PO SCH (10:00)
[2018-12-13] MEDS ORDERED: ROCEPHIN/NS 1 GM/50 ML 1 GM/50 ML BAG IV ONE (11:31)
[2018-12-13] MEDS: ROCEPHIN/NS 1 GM/50 ML 1 GM/50 ML BAG IV SCH (11:44)
[2018-12-13] MEDS ORDERED: FOLVITE ONE (11:49)
[2018-12-13] MEDS ORDERED: KEPPRA PO ONE (11:49)
[2018-12-13] MEDS ORDERED: VITAMIN B-1 ONE (11:49)
--- NOTE | 2018-12-13 13:33 | XRay Report ---
ABDOMEN 1 VIEW HISTORY: NGT PLACEMENT. COMPARISON: None. FINDINGS: Lung bases are clear. A nasogastric tube tip is in the fundus of the stomach. There is adeq uate tubing in the stomach and I would expect the tip to move distally. Nonobstructive bowel gas brad que. No radiopaque urinary stone disease. IMPRESSION: Satisfactory placement of nasogastric tube. Signer Name: Clement Alford MD Signed: 12/13/2018 1:29 PM Workstation Name: [id number]
[2018-12-13] MEDS: FOLVITE PO SCH (13:45)
[2018-12-13] MEDS: HALFPRIN EC PO SCH (13:45)
[2018-12-13] MEDS: VITAMIN B-1 PO SCH (13:45)
[2018-12-13] MEDS: SODIUM CHLORIDE FLUSH SYRINGE 10 ML IV SCH ×2 (14:51→22:20)
[2018-12-13] MEDS ORDERED: NACL 0.9% 1000 ML 1,000 ML ONE (15:13)
[2018-12-13] MEDS: D5/0.45NS 1,000 ML IV SCH (18:14)
[2018-12-13] MEDS ORDERED: NON-FORMULARY (Pravastatin Sodium [Pravastatin] 10 MG) PO SCH (22:00)
[2018-12-13] MEDS: KEPPRA 500 MG in D5W 100 ML IV SCH (22:20)
[2018-12-13] MEDS: HALDOL IM PRN (22:31)
[2018-12-13] MEDS: PRAVACHOL PO SCH (23:34)
[2018-12-14] MEDS: D5/0.45NS 1,000 ML IV SCH ×4 (03:02→23:38)
--- NOTE | 2018-12-14 03:36 | XRay Report ---
CHEST 1 VIEW INDICATION / CLINICAL INFORMATION: follow up respiratory failure. COMPARISON: 12/13/2018 FINDINGS: SUPPORT DEVICES: Endotracheal tube remains in satisfactory position. Nasogastric tube has been insert ed and is located within the stomach HEART / MEDIASTINUM: No significant abnormality. LUNGS / PLEURA: No significant pulmonary or pleural abnormality. No pneumothorax. ADDITIONAL FINDINGS: No significant additional findings. IMPRESSION: 1. No acute findings. Signer Name: Kian Wilcox MD Signed: 12/14/2018 3:31 AM Workstation Name: [id number]
[2018-12-14 04:56] LABS: Basophils # (Auto) 0.1 K/mm3 (0.0-0.1); Basophils % (Auto) 0.8 % (0.0-1.8); Eosinophils % (Auto) 0.4 % (0.0-4.3); Hematocrit 35.5 % (35.5-45.6); Hemoglobin 12.1 gm/dl (11.8-15.2); Lymphocytes # (Auto) 1.5 K/mm3 (1.2-5.4); Lymphocytes % (Auto) 18.5 % (13.4-35.0); Mean Corpuscular HGB Conc 34 % (32-34); Mean Corpuscular Volume 103 fl (84-94); Monocytes # (Auto) 1.1 K/mm3 (0.0-0.8); Monocytes % (Auto) 13.4 % (0.0-7.3); Platelet Count 243 K/mm3 (140-440); Red Blood Count 3.45 M/mm3 (3.65-5.03); Red Cell Distribution Width 13.8 % (13.2-15.2)
[2018-12-14 05:14] LABS: BUN/Creatinine Ratio 12; Blood Urea Nitrogen 6 mg/dL (9-20); Calcium 8.9 mg/dL (8.4-10.2); Hemolysis Index 2
[2018-12-14] MEDS: APRESOLINE IV PRN ×2 (05:25→13:32)
[2018-12-14 06:29] LABS: ABG Base Excess 0.1 mmol/L (-2.0-3.0); ABG HCO3 23.5 mmol/L (20.0-26.0); ABG Methemoglobin 0.5 % (0.0-1.5); ABG Oxygen Saturation 97.8 % (95.0-99.0); ABG PH 7.457 pH Units (7.350-7.450); ABG PO2 100.8 mm Hg (80.0-90.0)
[2018-12-14] MEDS: HALDOL IM PRN ×2 (08:16→13:37)
[2018-12-14] MEDS: FOLVITE PO SCH (09:58)
[2018-12-14] MEDS: ROCEPHIN/NS 1 GM/50 ML 1 GM/50 ML BAG IV SCH (09:58)
[2018-12-14] MEDS: VITAMIN B-1 PO SCH (09:58)
[2018-12-14] MEDS: HALFPRIN EC PO SCH (09:58)
[2018-12-14] MEDS: SODIUM CHLORIDE FLUSH SYRINGE 10 ML IV SCH ×2 (09:59→22:00)
[2018-12-14] MEDS: KEPPRA 500 MG in D5W 100 ML IV SCH ×2 (09:59→23:39)
--- NOTE | 2018-12-14 10:33 | Progress Note ---
Assessment and Plan Assessment and plan: Patient is a 63-year-old man with history of alcohol abuse, Seizure disorder, per his children he is not compliant with his antiseizure meds. The patient is initially afebrile with reassuring vital signs. He follows commands. His physical exam is unremarkable. While in the emergency room, he had a convulsive event Thought to be secondary to possible seizure and symptoms of alcohol withdrawal In the emergency room, the patient is confused and agitated and require excessive sedation and finally patient was intubated. Patient labs reviewed and is unremarkable. CT brain is negative for acute finding. CT C- spine is negative for acute finding. * In the ED the patient was loaded with keepra, during reevaluation patient had been progressively agitated. He received a total of 8 mg of Ativan, 5 mg of Haldol, is becoming increasingly agitated, pulling off his leads, and increasingly confused. Per ED doc " In my opinion, it is dangerous to continue sedating the patient, and he will therefore be intubated. He is emergently and administratively consented for intubation by myself, and intubated by the physician school psychologist assistant" CT Head without contrast. No acute findings or interval change. Prominent bifrontal white matter hypoattenuation. KUB: Satisfactory placement of nasogastric tube. CT Cervical spine: Degenerative changes with no evidence of cervical fracture or subluxation. Status epilepticus Acute metabolic encephalopathy due to postictal state Alcohol abuse/dependence SIRS without organ dysfunction Acute Cystitis Hypertensive urgency Moderate malnutrition Rhabdomylsis-Improving Plan Continue supportive care Continue CIWA protocol Continue Keppra iv and other home meds Abx IV and await Urine culture Wean from the vent when possible Monitor and correct electrolytes Counselling on compliance when more awake Resume home BP meds Discussed with Nursing staff at bedside Iv Hydralazine DVT/GI prophy Continue safety Restraints The high probability of a clinically significant, sudden or life threatening deterioration of the [nEURO] system(s) required my full and direct attention, intervention and personal management. The aggregate critical care time was [35] minutes. This time is in addition to time spent performing reported procedures but includes the following: [X] Data Review and interpretation [X] Patient assessment and monitoring of vital signs [X] Documentation [X] Medication orders and management History Interval history: Patient seen and examined, remains intubated, although opens eyes and follows some instructions, still with a CIWA score of 12 and agitated Hospitalist Physical - Constitutional Vitals: Temp Pulse Resp BP Pulse Ox 98.7 F 83 14 164/96 100 12/14/18 08:00 12/14/18 10:00 12/14/18 10:00 12/14/18 10:00 12/14/18 10:00 General appearance: Present: mild distress, disheveled, other (Intubated, sedated) - EENT Eyes: Present: PERRL ENT: other (ett in place) - Neck Neck: Present: supple, normal ROM - Respiratory Respiratory effort: other (on Full Mechanical ventialation) Respiratory: bilateral: CTA - Cardiovascular Rhythm: regular Heart Sounds: Present: S1 & S2. Absent: systolic murmur, diastolic murmur - Extremities Extremities: no ischemia, pulses intact, pulses symmetrical, No edema, normal temperature, normal color Peripheral Pulses: within normal limits - Abdominal General gastrointestinal: soft, non-tender, non-distended, normal bowel sounds - Integumentary Integumentary: Present: warm - Psychiatric Psychiatric: other (SEDATED) - Allied Health Allied health notes reviewed: nursing Results - Labs CBC & Chem 7: 12/14/18 04:21 12/14/18 04:21 Labs: Laboratory Last Values WBC 8.2 K/mm3 (4.5-11.0) 12/14/18 04:21 RBC 3.45 M/mm3 (3.65-5.03) L 12/14/18 04:21 Hgb 12.1 gm/dl (11.8-15.2) 12/14/18 04:21 Hct 35.5 % (35.5-45.6) 12/14/18 04:21 MCV 103 fl (84-94) H 12/14/18 04:21 MCH 35 pg (28-32) H 12/14/18 04:21 MCHC 34 % (32-34) 12/14/18 04:21 RDW 13.8 % (13.2-15.2) 12/14/18 04:21 Plt Count 243 K/mm3 (140-440) 12/14/18 04:21 Lymph % (Auto) 18.5 % (13.4-35.0) 12/14/18 04:21 [place] % (Auto) 13.4 % (0.0-7.3) H 12/14/18 04:21 Eos % (Auto) 0.4 % (0.0-4.3) 12/14/18 04:21 Baso % (Auto) 0.8 % (0.0-1.8) 12/14/18 04:21 Lymph # 1.5 K/mm3 (1.2-5.4) 12/14/18 04:21 [place] # 1.1 K/mm3 (0.0-0.8) H 12/14/18 04:21 Eos # 0.0 K/mm3 (0.0-0.4) 12/14/18 04:21 Baso # 0.1 K/mm3 (0.0-0.1) 12/14/18 04:21 Seg Neutrophils % 66.9 % (40.0-70.0) 12/14/18 04:21 Seg Neutrophils # 5.5 K/mm3 (1.8-7.7) 12/14/18 04:21 ABG pH 7.457 pH Units (7.350-7.450) H 12/14/18 06:00 ABG pCO2 34.0 mm Hg 12/14/18 06:00 ABG pO2 100.8 mm Hg (80.0-90.0) H 12/14/18 06:00 ABG HCO3 23.5 mmol/L (20.0-26.0) 12/14/18 06:00 ABG O2 Saturation 97.8 % (95.0-99.0) 12/14/18 06:00 ABG O2 Content 17.0 (0.0-44) 12/14/18 06:00 ABG Base Excess 0.1 mmol/L (-2.0-3.0) 12/14/18 06:00 ABG Hemoglobin 12.5 gm/dl (14.0-18.0) L 12/14/18 06:00 ABG Carboxyhemoglobin 1.6 % (0.0-5.0) 12/14/18 06:00 ABG Methemoglobin 0.5 % (0.0-1.5) 12/14/18 06:00 Oxyhemoglobin 95.9 % (95.0-99.0) 12/14/18 06:00 FiO2 35 % 12/14/18 06:00 Sodium 136 mmol/L (137-145) L 12/14/18 04:21 Potassium 3.6 mmol/L (3.6-5.0) D 12/14/18 04:21 Chloride 98.8 mmol/L (98-107) 12/14/18 04:21 Carbon Dioxide 25 mmol/L (22-30) 12/14/18 04:21 Anion Gap 16 mmol/L 12/14/18 04:21 BUN 6 mg/dL (9-20) L 12/14/18 04:21 Creatinine 0.5 mg/dL (0.8-1.5) L 12/14/18 04:21 Estimated GFR > 60 ml/min 12/14/18 04:21 BUN/Creatinine Ratio 12 % 12/14/18 04:21 Glucose 126 mg/dL (75-100) H 12/14/18 04:21 POC Glucose 105 (70-105) 12/13/18 01:14 Calcium 8.9 mg/dL (8.4-10.2) 12/14/18 04:21 Magnesium 2.20 mg/dL (1.7-2.3) 12/13/18 01:02 Ammonia 35.0 umol/L (25-60) 12/13/18 10:12 Total Creatine Kinase 619 units/L (55-170) H 12/14/18 04:21 Urine Color Yellow (Yellow) 12/13/18 Unknown Urine Turbidity Clear (Clear) 12/13/18 Unknown Urine pH 5.0 (5.0-7.0) 12/13/18 Unknown Ur Specific [place] 1.016 (1.003-1.030) 12/13/18 Unknown Urine Protein 30 mg/dl mg/dL (Negative) 12/13/18 Unknown Urine Glucose (UA) Neg mg/dL (Negative) 12/13/18 Unknown Urine Ketones Neg mg/dL (Negative) 12/13/18 Unknown Urine Blood Neg (Negative) 12/13/18 Unknown Urine Nitrite Neg (Negative) 12/13/18 Unknown Urine Bilirubin Neg (Negative) 12/13/18 Unknown Urine Urobilinogen < 2.0 mg/dL (<2.0) 12/13/18 Unknown Ur Leukocyte Esterase Sm (Negative) 12/13/18 Unknown Urine WBC (Auto) 24.0 /HPF (0.0-6.0) H 12/13/18 Unknown Urine RBC (Auto) 6.0 /HPF (0.0-6.0) 12/13/18 Unknown U Epithel Cells (Auto) 1.0 /HPF (0-13.0) 12/13/18 Unknown Salicylates < 0.3 mg/dL (2.8-20.0) L 12/13/18 01:02 Urine Opiates Screen Presumptive negative 12/13/18 Unknown Urine Methadone Screen Presumptive negative 12/13/18 Unknown Acetaminophen < 5.0 ug/mL (10.0-30.0) L 12/13/18 01:02 Ur Barbiturates Screen Presumptive negative 12/13/18 Unknown Ur Phencyclidine Scrn Presumptive negative 12/13/18 Unknown Ur Amphetamines Screen Presumptive negative 12/13/18 Unknown U Benzodiazepines Scrn Presumptive negative 12/13/18 Unknown Urine Cocaine Screen Presumptive negative 12/13/18 Unknown U Marijuana (THC) Screen Presumptive negative 12/13/18 Unknown Drugs of Abuse Note Disclamer 12/13/18 Unknown Plasma/Serum Alcohol < 0.01 % (0-0.07) 12/13/18 01:02 Active Medications - Current Medications Current Medications: Generic Name Dose Route Start Last Admin Trade Name Freq PRN Reason Stop Dose Admin Amlodipine Besylate 10 mg 12/13/18 10:00 12/14/18 09:58 Norvasc PO 10 mg QDAY KOTA Administration Aspirin 81 mg 12/13/18 10:00 12/14/18 09:58 Halfprin Ec PO 81 mg QDAY KOTA Administration Chlordiazepoxide HCl 50 mg 12/13/18 00:52 Librium PO Q1HR PRN CIWA-Ar 8-15 Fentanyl 50 mcg 12/13/18 04:07 12/13/18 05:58 Sublimaze IV 50 mcg Q10MIN PRN Administration ANALGESIA Folic Acid 1 mg 12/13/18 10:00 12/14/18 09:58 Folvite PO 1 mg QDAY KOTA Administration Haloperidol Lactate 5 mg 12/13/18 03:30 12/14/18 08:16 Haldol IM 5 mg Q6HR PRN Administration Agitation Hydralazine HCl 10 mg 12/13/18 17:28 12/14/18 05:25 Apresoline IV 10 mg Q6HR PRN Administration High blood pressure Hydrophilic Ointment 1 applic 12/13/18 04:07 Vaseline Lip Therapy TP Q2HR PRN Dry Lips Fentanyl Citrate 2,000 mcg in 100 mls @ 3.561 mls/hr 12/13/18 05:00 Fentanyl Drip Premix IV TITR KOTA Protocol 1 MCG/KG/HR Ceftriaxone Sodium 1 gm in 50 mls @ 100 mls/hr 12/13/18 10:00 12/14/18 09:58 Rocephin/Ns 1 Gm/50 Ml IV 100 mls/hr Q24HR KOTA Administration Protocol Levetiracetam 500 mg/ Dextrose 105 mls @ 400 mls/hr 12/13/18 22:00 12/14/18 09:59 IV 400 mls/hr Q12HR KOTA Administration Dextrose/Sodium Chloride 1,000 mls @ 125 mls/hr 12/13/18 18:00 12/14/18 03:02 D5/0.45ns IV 125 mls/hr DIRECT KOTA Administration Lorazepam 2 mg 12/13/18 00:52 12/13/18 23:36 Ativan IV 2 mg Q1HR PRN Administration CIWA-Ar 8-15 Lorazepam 4 mg 12/13/18 00:52 12/13/18 01:26 Ativan IV 4 mg Q1HR PRN Administration CIWA-Ar 16-25 Lorazepam 4 mg 12/13/18 00:52 12/13/18 02:26 Ativan IV 4 mg Q15MIN PRN Administration CIWA-Ar >25 Lorazepam 2 mg 12/13/18 04:07 Ativan IV Q10MIN PRN Agitation Multi-Ingred Cream/Lotion/Oil/Oint 1 applic 12/13/18 04:07 Artificial Tears Ophth Oint OU Q4HR PRN Dry Eye(s) Pravastatin Sodium 10 mg 12/13/18 22:00 12/13/18 23:34 Pravachol PO 10 mg QHS KOTA Administration Sodium Chloride 10 ml 12/13/18 10:00 12/14/18 09:59 Sodium Chloride Flush Syringe 10 Ml IV 10 ml BID KOTA Administration Sodium Chloride 10 ml 12/13/18 08:30 Sodium Chloride Flush Syringe 10 Ml IV PRN PRN LINE FLUSH Thiamine HCl 100 mg 12/13/18 10:00 10/17/19 09:58 Vitamin B-1 PO 100 mg QDAY KOTA Administration
[2018-12-14] MEDS: ATIVAN IV PRN ×5 (10:36→21:06)
[2018-12-14] MEDS ORDERED: SEROquel 50 MG, SEROquel 100 MG PO SCH (12:00)
--- NOTE | 2018-12-14 13:11 | Progress Note ---
Assessment and Plan Acute hypoxic respiratory failure on MVS Status epilepticus Acute metabolic encephalopathy due to postictal state Alcohol abuse/dependence SIRS without organ dysfunction Acute Cystitis Hypertensive urgency Moderate malnutrition Rhabdomylsis - begin Seroquel 150 mg bid for delirium and to spare IV sedatives - reduce set rate to 12 and TV to 450 mls re: alkalosis - GI & VTE prophylaxis - prn albuterol - get ABG on PSV - tentatively extubate in am if CIWA scores improved and passes SBT - nutrition consult and begin enteral nutrution - VAP bundle addressed (aspiration precautions, HOB > 40) - Supplemental oxygen wean for O2 sat's > 90% - continue bronchodilators with pulmonary hygiene per RT - Mobility protocols for pressure ulcer prevention - daily SAT/SBT assessment as tolerated - Titrate sedation to RASS -1 - Aspiration precatuions - Resume all chronic home medications - Blood pressure control - Accuchecks with glycemic control per SSI for target blood glucose 140-180mg/dL - Avoid hypoglycemia - Delong cultures, follow results - Empiric antibiotic therapy, de-escalate based on cultures - CXR, ABG in am - Continue CIWA protocol - Continue Keppra and other home meds - Monitor and correct electrolytes - Counselling on substance abuse and medical therapy adherence once he is extubated - continue other care per attending / other solutions market consultant's ... re-evaluate in am & prn CONDITION: CRITICAL PROGNOSIS: GUARDED CODE STATUS: FULL CODE The high probability of a clinically significant, sudden or life threatening deterioration of the [Respiratoy, Neurology] system(s) required my full and direct attention, intervention and personal management. The aggregate critical care time was [35] minutes. This time is in addition to time spent performing reported procedures but includes the following: [X] Data Review and interpretation [X] Patient assessment and monitoring of vital signs [X] Documentation [X] Medication orders and management Advance Directives: Yes Subjective Date of service: 12/14/18 Principal diagnosis: Ac. hypoxic resp failure; Status epilepticus; Ac. Encephalopathy Interval history: Patient is seen today for: Acute hypoxic respiratory failure on MVS; Status epilepticus; Acute metabolic encephalopathy due to postictal state; Alcohol abuse/dependence; SIRS without organ dysfunction; Acute Cystitis; Hypertensive urgency; Moderate malnutrition; Rhabdomylsis Seen and examined at bedside; 24hour events reviewed; nursing and respiratory care staff consulted; no adverse overnight events reported to me; just sedated and resting peacefully in bed; still with intermittent agitation / delirium; on PSV trial and tolerating decently well so far; no N/V/F/C; remains NPO Objective Vital Signs - 12hr 12/14/18 12/14/18 12/14/18 02:00 03:00 04:00 Temperature Pulse Rate 85 62 66 Pulse Rate [ 67 From Monitor] Respiratory 12 18 18 Rate Blood Pressure 167/101 137/84 135/83 O2 Sat by Pulse 100 100 100 Oximetry 12/14/18 12/14/18 12/14/18 04:09 04:12 05:00 Temperature 98.8 F Pulse Rate 70 57 L Pulse Rate [ From Monitor] Respiratory 18 Rate Blood Pressure 187/99 187/99 O2 Sat by Pulse 100 100 Oximetry 12/14/18 12/14/18 12/14/18 05:25 06:00 07:00 Temperature Pulse Rate 64 87 98 H Pulse Rate [ From Monitor] Respiratory 20 13 Rate Blood Pressure 187/99 135/82 134/79 O2 Sat by Pulse 100 99 Oximetry 12/14/18 12/14/18 12/14/18 07:28 08:00 09:00 Temperature 98.7 F Pulse Rate 86 78 91 H Pulse Rate [ 91 H From Monitor] Respiratory 16 17 15 Rate Blood Pressure 134/79 161/98 156/90 O2 Sat by Pulse 100 100 100 Oximetry 12/14/18 12/14/18 12/14/18 09:01 09:58 10:00 Temperature Pulse Rate 84 74 83 Pulse Rate [ From Monitor] Respiratory 24 14 Rate Blood Pressure 156/90 156/90 164/96 O2 Sat by Pulse 100 100 Oximetry 12/14/18 12/14/18 12/14/18 11:00 11:34 12:00 Temperature Pulse Rate 75 97 H 101 H Pulse Rate [ 90 From Monitor] Respiratory 23 15 20 Rate Blood Pressure 150/96 150/96 156/101 O2 Sat by Pulse 100 100 100 Oximetry Constitutional: no acute distress, asleep, other (elderly looking thin AAM, normocephalic and atraumatic with mildly increased resp effort at rest on MVS) Eyes: non-icteric ENT: oropharynx dry, other (ETT 23-24 cm MARIIA) Neck: supple, no lymphadenopathy, no JVD Effort: mildly labored Ascultation: Bilateral: diminished breath sounds, rhonchi Percussion: Bilateral: not dull Cardiovascular: regular rate and rhythm, other (Tachycardia, S1,S2, no murmurs, gallops or rubs) Gastrointestinal: normoactive bowel sounds, soft, non-tender, non-distended Integumentary: normal Extremities: no cyanosis, no edema, pulses normal, no ischemia or petechiae Neurologic: non-focal exam (grossly), pupils equal and round, CN II-XII normal, motor strength normal and, other (delirious) Psychiatric: other (delirious) CBC and BMP: 12/14/18 04:21 12/14/18 04:21 ABG, PT/INR, D-dimer: ABG POC ABG pH 7.469 (7.35-7.45) H 12/14/18 12:31 ABG pH 7.457 pH Units (7.350-7.450) H 12/14/18 06:00 POC ABG pCO2 38.5 (35-45) 12/14/18 12:31 ABG pCO2 34.0 mm Hg 12/14/18 06:00 POC ABG pO2 116 (80-105) H 12/14/18 12:31 ABG pO2 100.8 mm Hg (80.0-90.0) H 12/14/18 06:00 POC ABG HCO3 28.0 (22-26 mml/L) 12/14/18 12:31 POC ABG Total CO2 29 (23-27mmol/L) 12/14/18 12:31 POC ABG O2 Sat 99 12/14/18 12:31 ABG O2 Saturation 97.8 % (95.0-99.0) 12/14/18 06:00 Abnormal lab findings: Abnormal Labs 12/12/18 12/12/18 12/13/18 23:45 23:45 01:02 WBC 4.4 L RBC 3.56 L MCV 104 H MCH 34 H [place] % (Auto) [place] # POC ABG pH ABG pH POC ABG pO2 ABG pO2 ABG O2 Saturation ABG Hemoglobin Sodium BUN Creatinine 0.6 L Glucose 120 H Total Creatine Kinase 447 H Urine WBC (Auto) Salicylates Acetaminophen 12/13/18 12/13/18 12/13/18 01:02 01:02 10:12 WBC RBC MCV MCH [place] % (Auto) [place] # POC ABG pH ABG pH POC ABG pO2 ABG pO2 ABG O2 Saturation ABG Hemoglobin Sodium BUN Creatinine Glucose Total Creatine Kinase 935 H Urine WBC (Auto) Salicylates < 0.3 L Acetaminophen < 5.0 L 12/13/18 12/13/18 12/14/18 Unknown Unknown 04:21 WBC RBC 3.45 L MCV 103 H MCH 35 H [place] % (Auto) 13.4 H [place] # 1.1 H POC ABG pH ABG pH POC ABG pO2 ABG pO2 219.0 H ABG O2 Saturation 99.3 H ABG Hemoglobin 12.7 L Sodium BUN Creatinine Glucose Total Creatine Kinase Urine WBC (Auto) 24.0 H Salicylates Acetaminophen 12/14/18 12/14/18 12/14/18 04:21 06:00 12:31 WBC RBC MCV MCH [place] % (Auto) [place] # POC ABG pH 7.469 H ABG pH 7.457 H POC ABG pO2 116 H ABG pO2 100.8 H ABG O2 Saturation ABG Hemoglobin 12.5 L Sodium 136 L BUN 6 L Creatinine 0.5 L Glucose 126 H Total Creatine Kinase 619 H Urine WBC (Auto) Salicylates Acetaminophen Chest x-ray: image reviewed (ETT in good position; + cardiomegaly) Allied health notes reviewed: nursing
[2018-12-14] MEDS ORDERED: SIMPLE SYRUP FEEDTUBE PRN ×2 (14:10)
[2018-12-14] MEDS ORDERED: PANCREAZE DR 10,500 UNIT FEEDTUBE PRN (14:10)
[2018-12-14] MEDS ORDERED: SODIUM BICARBONATE FEEDTUBE PRN (14:10)
[2018-12-14] MEDS: PRAVACHOL PO SCH (21:04)
--- NOTE | 2018-12-15 02:33 | XRay Report ---
CHEST 1 VIEW INDICATION / CLINICAL INFORMATION: follow up respiratory failure. COMPARISON: 12/14/2018 FINDINGS: SUPPORT DEVICES: Stable, satisfactory device positioning. HEART / MEDIASTINUM: No significant abnormality. LUNGS / PLEURA: No significant pulmonary or pleural abnormality. No pneumothorax. ADDITIONAL FINDINGS: Mild basilar atelectasis has developed on the right IMPRESSION: 1. Right subsegmental atelectasis atelectasis, no other change Signer Name: Kian Wilcox MD Signed: 12/15/2018 2:28 AM Workstation Name: [id number]
[2018-12-15] MEDS: ATIVAN IV PRN ×3 (06:17→20:35)
[2018-12-15 06:42] LABS: ABG Base Excess 0.9 mmol/L (-2.0-3.0); ABG Methemoglobin 0.5 % (0.0-1.5); ABG Oxygen Saturation 98.4 % (95.0-99.0); ABG PCO2 38.4 mm Hg; ABG PH 7.433 pH Units (7.350-7.450); ABG PO2 122.1 mm Hg (80.0-90.0)
[2018-12-15] MEDS: ROCEPHIN/NS 1 GM/50 ML 1 GM/50 ML BAG IV SCH (10:27)
[2018-12-15] MEDS: PEPCID IV SCH ×2 (10:27→21:28)
[2018-12-15] MEDS: FOLVITE PO SCH (10:28)
[2018-12-15] MEDS: BABY ASPIRIN PO SCH (10:28)
[2018-12-15] MEDS: VITAMIN B-1 PO SCH (10:29)
[2018-12-15] MEDS: SODIUM CHLORIDE FLUSH SYRINGE 10 ML IV SCH ×2 (10:29→21:31)
[2018-12-15] MEDS: HEPARIN SUB-Q SCH ×2 (10:29→21:28)
[2018-12-15] MEDS: KEPPRA 500 MG in D5W 100 ML IV SCH ×2 (10:30→22:34)
--- NOTE | 2018-12-15 10:44 | Progress Note ---
Assessment and Plan Acute hypoxic respiratory failure on MVS Status epilepticus Acute metabolic encephalopathy due to postictal state Alcohol abuse/dependence SIRS without organ dysfunction Acute Cystitis Hypertensive urgency Moderate malnutrition Rhabdomylsis - increase Seroquel to 300 mg bid for delirium and to spare IV sedatives - discontinued D51/2 NS drip - continue daily SAT/SBT assessment as tolerated - GI & VTE prophylaxis - prn albuterol - continue enteral nutrution at goal rate as tolerated - VAP bundle addressed (aspiration precautions, HOB > 40) - Supplemental oxygen wean for O2 sat's > 90% - continue bronchodilators with pulmonary hygiene per RT - Mobility protocols for pressure ulcer prevention - Titrate sedation to RASS -1 - Aspiration precatuions - Resume all chronic home medications - Blood pressure control - Accuchecks with glycemic control per SSI for target blood glucose 140-180mg/dL - Avoid hypoglycemia - Delong cultures, follow results - Empiric antibiotic therapy, de-escalate based on cultures - CXR, ABG in am - Continue CIWA protocol - Continue Keppra and other home meds - Monitor and correct electrolytes - Counselling on substance abuse and medical therapy adherence once he is e xtubated - continue other care per attending / other men's custom hair piece consultant's ... re-evaluate in am & prn CONDITION: CRITICAL PROGNOSIS: GUARDED CODE STATUS: FULL CODE The high probability of a clinically significant, sudden or life threatening deterioration of the [Respiratoy, Neurology] system(s) required my full and direct attention, intervention and personal management. The aggregate critical care time was [32] minutes. This time is in addition to time spent performing reported procedures but includes the following: [X] Data Review and interpretation [X] Patient assessment and monitoring of vital signs [X] Documentation [X] Medication orders and management Subjective Date of service: 12/15/18 Principal diagnosis: Ac. hypoxic resp failure; Status epilepticus; Ac. Encephalopathy Interval history: Patient is seen today for: Acute hypoxic respiratory failure on MVS; Status epilepticus; Acute metabolic encephalopathy due to postictal state; Alcohol abuse/dependence; SIRS without organ dysfunction; Acute Cystitis; Hypertensive urgency; Moderate malnutrition; Rhabdomylsis Seen and examined at bedside; 24hour events reviewed; nursing and respiratory care staff consulted; no adverse overnight events reported to me; resting peacefully in bed; still with severe agitation during SAT's; remains on MVS; No N/V/F/C Objective Vital Signs - 12hr 12/14/18 12/14/18 12/14/18 23:00 23:02 23:11 Temperature 99.3 F Pulse Rate 100 H 98 H Pulse Rate [ From Monitor] Respiratory 22 19 Rate Blood Pressure 149/90 149/90 O2 Sat by Pulse 100 100 Oximetry 12/14/18 12/15/18 12/15/18 23:40 00:00 01:00 Temperature Pulse Rate 100 H 82 86 Pulse Rate [ 91 H From Monitor] Respiratory 9 L 20 Rate Blood Pressure 149/90 138/80 106/71 O2 Sat by Pulse 100 100 99 Oximetry 12/15/18 12/15/18 12/15/18 02:00 03:00 03:28 Temperature 99.6 F Pulse Rate 89 86 Pulse Rate [ From Monitor] Respiratory 19 18 Rate Blood Pressure 146/96 106/69 O2 Sat by Pulse 100 99 Oximetry 12/15/18 12/15/18 12/15/18 04:00 04:09 05:00 Temperature Pulse Rate 85 83 74 Pulse Rate [ 83 From Monitor] Respiratory 16 18 Rate Blood Pressure 152/88 152/88 144/78 O2 Sat by Pulse 100 100 100 Oximetry 12/15/18 12/15/18 12/15/18 06:00 07:00 08:00 Temperature Pulse Rate 80 84 92 H Pulse Rate [ From Monitor] Respiratory 18 17 18 Rate Blood Pressure 155/86 157/95 157/95 O2 Sat by Pulse 100 100 99 Oximetry 12/15/18 12/15/18 12/15/18 08:14 09:00 10:27 Temperature Pulse Rate 89 90 102 H Pulse Rate [ From Monitor] Respiratory 17 Rate Blood Pressure 98/60 146/86 109/69 O2 Sat by Pulse 100 100 Oximetry Constitutional: no acute distress, asleep, other (elderly looking thin AAM, n ormocephalic and atraumatic with mildly increased resp effort at rest on MVS) Eyes: non-icteric ENT: oropharynx dry, other (ETT 23-24 cm MARIIA) Neck: supple, no lymphadenopathy, no JVD Effort: mildly labored Ascultation: Bilateral: clear, diminished breath sounds Percussion: Bilateral: not dull Cardiovascular: regular rate and rhythm, other (Tachycardia, S1,S2, no murmurs, gallops or rubs) Gastrointestinal: normoactive bowel sounds, soft, non-tender, non-distended Integumentary: normal Extremities: no cyanosis, no edema, pulses normal, no ischemia or petechiae Neurologic: non-focal exam (grossly), pupils equal and round, CN II-XII normal, motor strength normal and, other (delirious) Psychiatric: other (delirious) CBC and BMP: 12/14/18 04:21 12/14/18 04:21 ABG, PT/INR, D-dimer: ABG POC ABG pH 7.469 (7.35-7.45) H 12/14/18 12:31 ABG pH 7.433 pH Units (7.350-7.450) 12/15/18 06:00 POC ABG pCO2 38.5 (35-45) 12/14/18 12:31 ABG pCO2 38.4 mm Hg 12/15/18 06:00 POC ABG pO2 116 (80-105) H 12/14/18 12:31 ABG pO2 122.1 mm Hg (80.0-90.0) H 12/15/18 06:00 POC ABG HCO3 28.0 (22-26 mml/L) 12/14/18 12:31 POC ABG Total CO2 29 (23-27mmol/L) 12/14/18 12:31 POC ABG O2 Sat 99 12/14/18 12:31 ABG O2 Saturation 98.4 % (95.0-99.0) 12/15/18 06:00 Abnormal lab findings: Abnormal Labs 12/12/18 12/12/18 12/13/18 23:45 23:45 01:02 WBC 4.4 L RBC 3.56 L MCV 104 H MCH 34 H [place] % (Auto) [place] # POC ABG pH ABG pH POC ABG pO2 ABG pO2 ABG O2 Saturation ABG Hemoglobin Sodium BUN Creatinine 0.6 L Glucose 120 H Total Creatine Kinase 447 H Urine WBC (Auto) Salicylates Acetaminophen 12/13/18 12/13/18 12/13/18 01:02 01:02 10:12 WBC RBC MCV MCH [place] % (Auto) [place] # POC ABG pH ABG pH POC ABG pO2 ABG pO2 ABG O2 Saturation ABG Hemoglobin Sodium BUN Creatinine Glucose Total Creatine Kinase 935 H Urine WBC (Auto) Salicylates < 0.3 L Acetaminophen < 5.0 L 12/13/18 12/13/18 12/14/18 Unknown Unknown 04:21 WBC RBC 3.45 L MCV 103 H MCH 35 H [place] % (Auto) 13.4 H [place] # 1.1 H POC ABG pH ABG pH POC ABG pO2 ABG pO2 219.0 H ABG O2 Saturation 99.3 H ABG Hemoglobin 12.7 L Sodium BUN Creatinine Glucose Total Creatine Kinase Urine WBC (Auto) 24.0 H Salicylates Acetaminophen 12/14/18 12/14/18 12/14/18 04:21 06:00 12:31 WBC RBC MCV MCH [place] % (Auto) [place] # POC ABG pH 7.469 H ABG pH 7.457 H POC ABG pO2 116 H ABG pO2 100.8 H ABG O2 Saturation ABG Hemoglobin 12.5 L Sodium 136 L BUN 6 L Creatinine 0.5 L Glucose 126 H Total Creatine Kinase 619 H Urine WBC (Auto) Salicylates Acetaminophen 12/15/18 06:00 WBC RBC MCV MCH [place] % (Auto) [place] # POC ABG pH ABG pH POC ABG pO2 ABG pO2 122.1 H ABG O2 Saturation ABG Hemoglobin 12.8 L Sodium BUN Creatinine Glucose Total Creatine Kinase Urine WBC (Auto) Salicylates Acetaminophen Allied health notes reviewed: nursing
--- NOTE | 2018-12-15 11:03 | Progress Note ---
Assessment and Plan Assessment and plan: Patient is a 63-year-old man with history of alcohol abuse, Seizure disorder, per his children he is not compliant with his antiseizure meds. The patient is initially afebrile with reassuring vital signs. He follows commands. His physical exam is unremarkable. While in the emergency room, he had a convulsive event Thought to be secondary to possible seizure and symptoms of alcohol withdrawal In the emergency room, the patient is confused and agitated and require excessive sedation and finally patient was intubated. Patient labs reviewed and is unremarkable. CT brain is negative for acute finding. CT C- spine is negative for acute finding. * In the ED the patient was loaded with keepra, during reevaluation patient had been progressively agitated. He received a total of 8 mg of Ativan, 5 mg of Haldol, is becoming increasingly agitated, pulling off his leads, and increasingly confused. Per ED doc " In my opinion, it is dangerous to continue sedating the patient, and he will therefore be intubated. He is emergently and administratively consented for intubation by myself, and intubated by the physician chef assistant" CT Head without contrast. No acute findings or interval change. Prominent bifrontal white matter hypoattenuation. KUB: Satisfactory placement of nasogastric tube. CT Cervical spine: Degenerative changes with no evidence of cervical fracture or subluxation. Status epilepticus Acute hypoxic respiratory failure on MVS Acute metabolic encephalopathy due to postictal state Alcohol abuse/dependence SIRS without organ dysfunction Acute Cystitis Hypertensive urgency Moderate malnutrition Rhabdomylsis-Improving Plan Continue supportive care Continue CIWA protocol Continue Keppra iv and other home meds Abx IV and await Urine culture Continue weaning Monitor and correct electrolytes Counselling on compliance when more awake Started on seroquel for delirium Resume home BP meds Discussed with Nursing staff at bedside Pressure ulcer prevention protocol inpace Iv Hydralazine DVT/GI prophy Continue safety Restraints The high probability of a clinically significant, sudden or life threatening deterioration of the [nEURO] system(s) required my full and direct attention, intervention and personal management. The aggregate critical care time was [35] minutes. This time is in addition to time spent performing reported procedures but includes the following: [X] Data Review and interpretation [X] Patient assessment and monitoring of vital signs [X] Documentation [X] Medication orders and management History Interval history: Patient seen and examined, remains intubated, although opens eyes, confused, not fully following instructions, gets agitated still Hospitalist Physical - Constitutional Vitals: Temp Pulse Resp BP Pulse Ox 99.6 F 102 H 17 109/69 99 12/15/18 03:28 12/15/18 10:27 12/15/18 10:00 12/15/18 10:12/15/18 10:00 General appearance: Present: mild distress, disheveled, other (Intubated, sedated) - EENT Eyes: Present: PERRL ENT: hearing intact - Neck Neck: Present: supple, normal ROM - Respiratory Respiratory effort: normal Respiratory: bilateral: diminished - Cardiovascular Rhythm: regular Heart Sounds: Present: S1 & S2. Absent: systolic murmur, diastolic murmur - Extremities Extremities: no ischemia, pulses intact, pulses symmetrical, No edema, normal temperature, normal color, Full ROM Peripheral Pulses: within normal limits - Abdominal General gastrointestinal: soft, non-tender, non-distended, normal bowel sounds - Integumentary Integumentary: Present: warm - Psychiatric Psychiatric: agitated, other (altered sensorium) - Neurologic Neurologic: CNII-XII intact - Allied Health Allied health notes reviewed: nursing Results - Labs CBC & Chem 7: 12/14/18 04:21 12/14/18 04:21 Labs: Laboratory Last Values WBC 8.2 K/mm3 (4.5-11.0) 12/14/18 04:21 RBC 3.45 M/mm3 (3.65-5.03) L 12/14/18 04:21 Hgb 12.1 gm/dl (11.8-15.2) 12/14/18 04:21 Hct 35.5 % (35.5-45.6) 12/14/18 04:21 MCV 103 fl (84-94) H 12/14/18 04:21 MCH 35 pg (28-32) H 12/14/18 04:21 MCHC 34 % (32-34) 12/14/18 04:21 RDW 13.8 % (13.2-15.2) 12/14/18 04:21 Plt Count 243 K/mm3 (140-440) 12/14/18 04:21 Lymph % (Auto) 18.5 % (13.4-35.0) 12/14/18 04:21 [place] % (Auto) 13.4 % (0.0-7.3) H 12/14/18 04:21 Eos % (Auto) 0.4 % (0.0-4.3) 12/14/18 04:21 Baso % (Auto) 0.8 % (0.0-1.8) 12/14/18 04:21 Lymph # 1.5 K/mm3 (1.2-5.4) 12/14/18 04:21 [place] # 1.1 K/mm3 (0.0-0.8) H 12/14/18 04:21 Eos # 0.0 K/mm3 (0.0-0.4) 12/14/18 04:21 Baso # 0.1 K/mm3 (0.0-0.1) 12/14/18 04:21 Seg Neutrophils % 66.9 % (40.0-70.0) 12/14/18 04:21 Seg Neutrophils # 5.5 K/mm3 (1.8-7.7) 12/14/18 04:21 POC ABG pH 7.469 (7.35-7.45) H 12/14/18 12:31 ABG pH 7.433 pH Units (7.350-7.450) 12/15/18 06:00 POC ABG pCO2 38.5 (35-45) 12/14/18 12:31 ABG pCO2 38.4 mm Hg 12/15/18 06:00 POC ABG pO2 116 (80-105) H 12/14/18 12:31 ABG pO2 122.1 mm Hg (80.0-90.0) H 12/15/18 06:00 POC ABG HCO3 28.0 (22-26 mml/L) 12/14/18 12:31 ABG HCO3 25.0 mmol/L (20.0-26.0) 12/15/18 06:00 POC ABG Total CO2 29 (23-27mmol/L) 12/14/18 12:31 POC ABG O2 Sat 99 12/14/18 12:31 ABG O2 Saturation 98.4 % (95.0-99.0) 12/15/18 06:00 ABG O2 Content 17.6 (0.0-44) 12/15/18 06:00 POC ABG Base Excess 4 ((-2) - (+3)mmol/L) 12/14/18 12:31 ABG Base Excess 0.9 mmol/L (-2.0-3.0) 12/15/18 06:00 ABG Hemoglobin 12.8 gm/dl (14.0-18.0) L 12/15/18 06:00 ABG Carboxyhemoglobin 1.5 % (0.0-5.0) 12/15/18 06:00 ABG Methemoglobin 0.5 % (0.0-1.5) 12/15/18 06:00 Oxyhemoglobin 96.4 % (95.0-99.0) 12/15/18 06:00 FiO2 35 % 12/15/18 06:00 Sodium 136 mmol/L (137-145) L 12/14/18 04:21 Potassium 3.6 mmol/L (3.6-5.0) D 12/14/18 04:21 Chloride 98.8 mmol/L (98-107) 12/14/18 04:21 Carbon Dioxide 25 mmol/L (22-30) 12/14/18 04:21 Anion Gap 16 mmol/L 12/14/18 04:21 BUN 6 mg/dL (9-20) L 12/14/18 04:21 Creatinine 0.5 mg/dL (0.8-1.5) L 12/14/18 04:21 Estimated GFR > 60 ml/min 12/14/18 04:21 BUN/Creatinine Ratio 12 % 12/14/18 04:21 Glucose 126 mg/dL (75-100) H 12/14/18 04:21 POC Glucose 105 (70-105) 12/13/18 01:14 Calcium 8.9 mg/dL (8.4-10.2) 12/14/18 04:21 Magnesium 2.20 mg/dL (1.7-2.3) 12/13/18 01:02 Ammonia 35.0 umol/L (25-60) 12/13/18 10:12 Total Creatine Kinase 619 units/L (55-170) H 12/14/18 04:21 Urine Color Yellow (Yellow) 12/13/18 Unknown Urine Turbidity Clear (Clear) 12/13/18 Unknown Urine pH 5.0 (5.0-7.0) 12/13/18 Unknown Ur Specific [place] 1.016 (1.003-1.030) 12/13/18 Unknown Urine Protein 30 mg/dl mg/dL (Negative) 12/13/18 Unknown Urine Glucose (UA) Neg mg/dL (Negative) 12/13/18 Unknown Urine Ketones Neg mg/dL (Negative) 12/13/18 Unknown Urine Blood Neg (Negative) 12/13/18 Unknown Urine Nitrite Neg (Negative) 12/13/18 Unknown Urine Bilirubin Neg (Negative) 12/13/18 Unknown Urine Urobilinogen < 2.0 mg/dL (<2.0) 12/13/18 Unknown Ur Leukocyte Esterase Sm (Negative) 12/13/18 Unknown Urine WBC (Auto) 24.0 /HPF (0.0-6.0) H 12/13/18 Unknown Urine RBC (Auto) 6.0 /HPF (0.0-6.0) 12/13/18 Unknown U Epithel Cells (Auto) 1.0 /HPF (0-13.0) 12/13/18 Unknown Salicylates < 0.3 mg/dL (2.8-20.0) L 12/13/18 01:02 Urine Opiates Screen Presumptive negative 12/13/18 Unknown Urine Methadone Screen Presumptive negative 12/13/18 Unknown Acetaminophen < 5.0 ug/mL (10.0-30.0) L 12/13/18 01:02 Ur Barbiturates Screen Presumptive negative 12/13/18 Unknown Ur Phencyclidine Scrn Presumptive negative 12/13/18 Unknown Ur Amphetamines Screen Presumptive negative 12/13/18 Unknown U Benzodiazepines Scrn Presumptive negative 12/13/18 Unknown Urine Cocaine Screen Presumptive negative 12/13/18 Unknown U Marijuana (THC) Screen Presumptive negative 12/13/18 Unknown Drugs of Abuse Note Disclamer 12/13/18 Unknown Plasma/Serum Alcohol < 0.01 % (0-0.07) 12/13/18 01:02 Active Medications - Current Medications Current Medications: Generic Name Dose Route Start Last Admin Trade Name Freq PRN Reason Stop Dose Admin Amlodipine Besylate 10 mg 12/13/18 10:00 12/15/18 10:27 Norvasc PO 10 mg QDAY KOTA Administration Lipase/Protease/Amylase 1 each 12/14/18 14:[address] 10,500 Unit FEEDTUBE PRN PRN For Clogged Feeding Tube Aspirin 81 mg 12/15/18 10:00 12/15/18 10:28 Baby Aspirin PO 81 mg QDAY KOTA Administration Famotidine 20 mg 12/15/18 10:00 12/15/18 10:27 Pepcid IV 20 mg BID KOTA Administration Fentanyl 50 mcg 12/13/18 04:07 12/13/18 05:58 Sublimaze IV 50 mcg Q10MIN PRN Administration ANALGESIA Folic Acid 1 mg 12/13/18 10:00 12/15/18 10:28 Folvite PO 1 mg QDAY KOTA Administration Haloperidol Lactate 5 mg 12/13/18 03:30 12/14/18 13:37 Haldol IM 5 mg Q6HR PRN Administration Agitation Heparin Sodium (Porcine) 5,000 unit 12/15/18 10:00 12/15/18 10:29 Heparin SUB-Q 5,000 unit Q12HR KOTA Administration Hydralazine HCl 10 mg 12/13/18 17:28 12/14/18 13:32 Apresoline IV 10 mg Q6HR PRN Administration High blood pressure Hydrophilic Ointment 1 applic 12/13/18 04:07 Vaseline Lip Therapy TP Q2HR PRN Dry Lips Fentanyl Citrate 2,000 mcg in 100 mls @ 3.561 mls/hr 12/13/18 05:00 Fentanyl Drip Premix IV TITR KOTA Protocol 1 MCG/KG/HR Ceftriaxone Sodium 1 gm in 50 mls @ 100 mls/hr 12/13/18 10:00 12/15/18 10:27 Rocephin/Ns 1 Gm/50 Ml IV 12/17/18 10:29 100 mls/hr Q24HR KOTA Administration Protocol Levetiracetam 500 mg/ Dextrose 105 mls @ 400 mls/hr 12/13/18 22:00 12/15/18 10:30 IV 400 mls/hr Q12HR KOTA Administration Dextrose/Sodium Chloride 1,000 mls @ 125 mls/hr 12/13/18 18:00 12/14/18 23:38 D5/0.45ns IV 125 mls/hr DIRECT KOTA Administration Lorazepam 2 mg 12/13/18 00:52 12/15/18 08:40 Ativan IV 2 mg Q1HR PRN Administration CIWA-Ar 8-15 Lorazepam 4 mg 12/13/18 00:52 12/14/18 18:12 Ativan IV 4 mg Q1HR PRN Administration CIWA-Ar 16-25 Lorazepam 4 mg 12/13/18 00:52 12/13/18 02:26 Ativan IV 4 mg Q15MIN PRN Administration CIWA-Ar >25 Lorazepam 2 mg 12/13/18 04:07 Ativan IV Q10MIN PRN Agitation Multi-Ingred Cream/Lotion/Oil/Oint 1 applic 12/13/18 04:07 Artificial Tears Ophth Oint OU Q4HR PRN Dry Eye(s) Pravastatin Sodium 10 mg 12/13/18 22:00 12/14/18 21:04 Pravachol PO 10 mg QHS KOTA Administration Quetiapine Fumarate 100 mg 12/14/18 13:00 12/15/18 10:29 Seroquel PO 100 mg BID KOTA Administration Quetiapine Fumarate 50 mg 12/14/18 13:00 12/15/18 10:32 Seroquel PO 50 mg BID KOTA Administration Simple Syrup 15 ml 12/14/18 14:10 Simple Syrup FEEDTUBE PRN PRN Hypoglycemia Simple Syrup 30 ml 12/14/18 14:10 Simple Syrup FEEDTUBE PRN PRN Hypoglycemia Sodium Bicarbonate 325 mg 12/14/18 14:10 Sodium Bicarbonate FEEDTUBE PRN PRN For Clogged Feeding Tube Sodium Chloride 10 ml 12/13/18 10:00 12/15/18 10:29 Sodium Chloride Flush Syringe 10 Ml IV 10 ml BID KOTA Administration Sodium Chloride 10 ml 12/13/18 08:30 Sodium Chloride Flush Syringe 10 Ml IV PRN PRN LINE FLUSH Thiamine HCl 100 mg 12/13/18 10:00 12/15/18 10:29 Vitamin B-1 PO 100 mg QDAY KOTA Administration Nutrition/Malnutrition Assess - Dietary Evaluation Nutrition/Malnutrition Findings: Nutrition Notes Start: 12/14/18 10:20 Freq: Status: Active Protocol: Document 12/15/18 10:00 RS (Rec: 12/15/18 10:06 RS [id number]) Co-Sign 12/15/18 10:00 LP Nutrition Notes Initial or Follow up Reassessment Other Pertinent Diagnosis ETOH dependence, Seizure disorder, acute encephalopathy , Rhabdomyolysis Current Diet NPO Labs/Tests reviewed Pertinent Medications reviewed Height 6 ft 1 in Weight 72 kg [place] Body Weight (kg) 83.63 BMI 20.9 Subjective/Other Information F/U for TF tolerance/rate. Vital AF 1.2 running at 30 mL/ hr. Burn Absent Trauma Absent GI Symptoms None Minimum of two criteria No physical signs of malnutrition #1 Nutrition Diagnosis Inadequate oral intake Diagnosis Progress(for reassessment Continues documentation) Is patient on ventilator? Yes Is Patient Ambulatory and/or Out of Bed No REE-([facility]-confined to bed) 1876.032 Kcal/Kg value to use for calculation 31 Approximate Energy Requirements Using 2232 kcal/Kg Calculation Used for Recommendations Kcal/kg Additional Notes PRO needs (1.2-2g/kg): 86-144g/day Fluid needs: 1mL/kcal Nutrition Intervention Change Diet Order: TF Nutrition Support: Vital AF 1.2 at 75 mL/hr (goal rate) Free water flush of 150 mL q4hr Kcal 2,160 Protein (gm) 135 Fluid (mL) 1,460 Goal #1 TF tolerance Anticipated Discharge Needs: unable to determine at this time Follow-Up By: 12/18/18 Additional Comments F/U for TF tolerance/ rate
[2018-12-15] MEDS ORDERED: HALDOL IV PRN (12:00)
[2018-12-15 14:50] LABS: ABG Base Excess 0.1 mmol/L (-2.0-3.0); ABG HCO3 23.7 mmol/L (20.0-26.0); ABG Methemoglobin 0.5 % (0.0-1.5); ABG PCO2 35.2 mm Hg; ABG PH 7.446 pH Units (7.350-7.450); ABG PO2 86.4 mm Hg (80.0-90.0)
[2018-12-15] MEDS: PRAVACHOL PO SCH (21:29)
--- NOTE | 2018-12-16 04:07 | XRay Report ---
CHEST 1 VIEW INDICATION / CLINICAL INFORMATION: follow up respiratory failure. COMPARISON: And 1818 FINDINGS: SUPPORT DEVICES: No significant change in position. HEART / MEDIASTINUM: The cardiomediastinal silhouette has not significantly changed in the interim. LUNGS / PLEURA: No acute findings or change from yesterday's exam Signer Name: Shad Cui MD Signed: 12/16/2018 4:03 AM Workstation Name: [id number]
[2018-12-16] MEDS: VITAMIN B-1 PO SCH (09:26)
[2018-12-16] MEDS: BABY ASPIRIN PO SCH (09:26)
[2018-12-16] MEDS: KEPPRA PO SCH ×2 (09:26→21:55)
[2018-12-16] MEDS: ATIVAN IV PRN ×3 (09:26→19:22)
[2018-12-16] MEDS: ROCEPHIN/NS 1 GM/50 ML 1 GM/50 ML BAG IV SCH (09:27)
[2018-12-16] MEDS: HEPARIN SUB-Q SCH ×2 (09:27→22:00)
[2018-12-16] MEDS: FOLVITE PO SCH (09:27)
[2018-12-16] MEDS: PEPCID IV SCH ×2 (09:27→21:55)
[2018-12-16] MEDS: SODIUM CHLORIDE FLUSH SYRINGE 10 ML IV SCH ×2 (09:28→21:56)
--- NOTE | 2018-12-16 10:52 | Consultation ---
History of Present Illness Consult date: 12/16/18 History of present illness: see my dictated note on this patient and CT is highly abnormal with large lesions in the frontal lobes likely due to trauma and there is likely alcohol caused atrophy and he is at danger of going into DT's due to alcohol,induced problemns doubt that his MRI could have been normal plan anticonvulsants and will check EEG Past History Past Medical History: hypertension, hyperlipidemia, seizures, other (etoh dependance) Past Surgical History: appendectomy Social history: alcohol abuse Family history: no significant family history Medications and Allergies Allergies Allergy/AdvReac Type Severity Reaction Status Date / Time ampicillin Allergy Unknown Verified 09/17/18 01:30 Home Medications Medication Instructions Recorded Confirmed Last Taken Type Aspirin EC [Halfprin EC] 81 mg PO QDAY #30 tablet. 09/19/18 12/15/18 Unknown Rx Folic Acid [Folvite] 1 mg PO QDAY #30 tablet 09/19/18 12/15/18 Unknown Rx Pravastatin Sodium [Pravastatin] 10 mg PO QHS #30 tablet 09/19/18 12/15/18 Unknown Rx Thiamine [Vitamin B-1] 100 mg PO QDAY #30 tablet 09/19/18 12/15/18 Unknown Rx amLODIPine [Norvasc] 10 mg PO QDAY #30 tablet 09/19/18 12/15/18 Unknown Rx levETIRAcetam [Keppra TAB] 500 mg PO Q12HR #60 tablet 09/19/18 12/15/18 Unknown Rx Active Meds: Active Medications Amlodipine Besylate (Norvasc) 10 mg PO QDAY [facility] Last Admin: 12/16/18 09:26 Dose: 10 mg Documented by: Lipase/Protease/Amylase (Toni Brownlee 10,500 Unit) 1 each FEEDTUBE PRN PRN PRN Reason: For Clogged Feeding Tube Aspirin (Baby Aspirin) 81 mg PO QDAY [facility] Last Admin: 12/16/18 09:26 Dose: 81 mg Documented by: Famotidine (Pepcid) 20 mg IV BID [facility] Last Admin: 12/16/18 09:27 Dose: 20 mg Documented by: Fentanyl (Sublimaze) 50 mcg IV Q10MIN PRN PRN Reason: ANALGESIA Last Admin: 12/13/18 05:58 Dose: 50 mcg Documented by: Folic Acid (Folvite) 1 mg PO QDAY [facility] Last Admin: 10/19/19 09:27 Dose: 1 mg Documented by: Haloperidol Lactate (Haldol) 5 mg IV Q6HR PRN PRN Reason: Agitation Heparin Sodium (Porcine) (Heparin) 5,000 unit SUB-Q Q12HR [facility] Last Admin: 12/16/18 09:27 Dose: 5,000 unit Documented by: Hydralazine HCl (Apresoline) 10 mg IV Q6HR PRN PRN Reason: High blood pressure Last Admin: 12/14/18 13:32 Dose: 10 mg Documented by: Hydrophilic Ointment (Vaseline Lip Therapy) 1 applic TP Q2HR PRN PRN Reason: Dry Lips Fentanyl Citrate (Fentanyl Drip Premix) 2,000 mcg in 100 mls @ 3.561 mls/hr IV TITR [facility]; Protocol Ceftriaxone Sodium (Rocephin/Ns 1 Gm/50 Ml) 1 gm in 50 mls @ 100 mls/hr IV Q24HR [facility]; Protocol Stop: 12/17/18 10:29 Last Admin: 12/16/18 09:27 Dose: 100 mls/hr Documented by: Levetiracetam (Keppra) 500 mg PO BID [facility] Last Admin: 12/16/18 09:26 Dose: 500 mg Documented by: Lorazepam (Ativan) 2 mg IV Q1HR PRN PRN Reason: CIWA-Ar 8-15 Last Admin: 12/16/18 09:26 Dose: 2 mg Documented by: Lorazepam (Ativan) 4 mg IV Q1HR PRN PRN Reason: CIWA-Ar 16-25 Last Admin: 12/15/18 20:35 Dose: 4 mg Documented by: Lorazepam (Ativan) 4 mg IV Q15MIN PRN PRN Reason: CIWA-Ar >25 Last Admin: 12/13/18 02:26 Dose: 4 mg Documented by: Lorazepam (Ativan) 2 mg IV Q10MIN PRN PRN Reason: Agitation Multi-Ingred Cream/Lotion/Oil/Oint (Artificial Tears Ophth Oint) 1 applic OU Q4HR PRN PRN Reason: Dry Eye(s) Pravastatin Sodium (Pravachol) 10 mg PO QHS [facility] Last Admin: 12/15/18 21:29 Dose: 10 mg Documented by: Quetiapine Fumarate (Seroquel) 300 mg PO BID [facility] Last Admin: 12/16/18 09:26 Dose: 300 mg Documented by: Simple Syrup (Simple Syrup) 15 ml FEEDTUBE PRN PRN PRN Reason: Hypoglycemia Simple Syrup (Simple Syrup) 30 ml FEEDTUBE PRN PRN PRN Reason: Hypoglycemia Sodium Bicarbonate (Sodium Bicarbonate) 325 mg FEEDTUBE PRN PRN PRN Reason: For Clogged Feeding Tube Sodium Chloride (Sodium Chloride Flush Syringe 10 Ml) 10 ml IV BID [facility] Last Admin: 12/16/18 09:28 Dose: 10 ml Documented by: Sodium Chloride (Sodium Chloride Flush Syringe 10 Ml) 10 ml IV PRN PRN PRN Reason: LINE FLUSH Thiamine HCl (Vitamin B-1) 100 mg PO QDAY [facility] Last Admin: 12/16/18 09:26 Dose: 100 mg Documented by: Physical Examination - Vital Signs Vital Signs: Vital Signs Pulse Resp Pulse Ox 67 10 L 100 12/12/18 23:10 12/12/18 23:10 12/12/18 23:10 Results - Laboratory Findings CBC and BMP: 12/14/18 04:21 12/14/18 04:21 Abnormal Lab Findings: Abnormal Labs 12/12/18 12/12/18 12/13/18 23:45 23:45 01:02 WBC 4.4 L RBC 3.56 L MCV 104 H MCH 34 H [place] % (Auto) [place] # POC ABG pH ABG pH POC ABG pCO2 POC ABG pO2 ABG pO2 ABG O2 Saturation ABG Hemoglobin Sodium BUN Creatinine 0.6 L Glucose 120 H POC Glucose Total Creatine Kinase 447 H Urine WBC (Auto) Salicylates Acetaminophen 12/13/18 12/13/18 12/13/18 01:02 01:02 10:12 WBC RBC MCV MCH [place] % (Auto) [place] # POC ABG pH ABG pH POC ABG pCO2 POC ABG pO2 ABG pO2 ABG O2 Saturation ABG Hemoglobin Sodium BUN Creatinine Glucose POC Glucose Total Creatine Kinase 935 H Urine WBC (Auto) Salicylates < 0.3 L Acetaminophen < 5.0 L 12/13/18 12/13/18 12/14/18 Unknown Unknown 04:21 WBC RBC 3.45 L MCV 103 H MCH 35 H [place] % (Auto) 13.4 H [place] # 1.1 H POC ABG pH ABG pH POC ABG pCO2 POC ABG pO2 ABG pO2 219.0 H ABG O2 Saturation 99.3 H ABG Hemoglobin 12.7 L Sodium BUN Creatinine Glucose POC Glucose Total Creatine Kinase Urine WBC (Auto) 24.0 H Salicylates Acetaminophen 12/14/18 12/14/18 12/14/18 04:21 06:00 12:31 WBC RBC MCV MCH [place] % (Auto) [place] # POC ABG pH 7.469 H ABG pH 7.457 H POC ABG pCO2 POC ABG pO2 116 H ABG pO2 100.8 H ABG O2 Saturation ABG Hemoglobin 12.5 L Sodium 136 L BUN 6 L Creatinine 0.5 L Glucose 126 H POC Glucose Total Creatine Kinase 619 H Urine WBC (Auto) Salicylates Acetaminophen 12/15/18 12/15/18 12/15/18 06:00 11:34 13:45 WBC RBC MCV MCH [place] % (Auto) [place] # POC ABG pH ABG pH POC ABG pCO2 POC ABG pO2 ABG pO2 122.1 H ABG O2 Saturation ABG Hemoglobin 12.8 L 12.9 L Sodium BUN Creatinine Glucose POC Glucose 116 H Total Creatine Kinase Urine WBC (Auto) Salicylates Acetaminophen 12/16/18 04:21 WBC RBC MCV MCH [place] % (Auto) [place] # POC ABG pH 7.490 H ABG pH POC ABG pCO2 32.3 L POC ABG pO2 ABG pO2 ABG O2 Saturation ABG Hemoglobin Sodium BUN Creatinine Glucose POC Glucose Total Creatine Kinase Urine WBC (Auto) Salicylates Acetaminophen
--- NOTE | 2018-12-16 11:58 | Progress Note ---
Assessment and Plan Acute hypoxic respiratory failure on MVS Status epilepticus Acute metabolic encephalopathy due to postictal state Alcohol abuse/dependence SIRS without organ dysfunction Acute Cystitis Hypertensive urgency Moderate malnutrition Rhabdomylsis - get ABG on SBT - extubate if acceptable - ST evaluation post extubation - continue Seroquel at 300 mg bid for delirium and to spare IV sedatives - continue daily SAT/SBT assessment as tolerated - GI & VTE prophylaxis - prn albuterol - continue enteral nutrution at goal rate as tolerated - VAP bundle addressed (aspiration precautions, HOB > 40) - Supplemental oxygen wean for O2 sat's > 90% - continue bronchodilators with pulmonary hygiene per RT - Mobility protocols for pressure ulcer prevention - Titrate sedation to RASS -1 - Aspiration precatuions - continue chronic home medications - continue accuchecks with glycemic control per SSI for target blood glucose 140-180mg/dL - Avoid hypoglycemia - Delong cultures, follow results - complete empiric antibiotic therapy, de-escalate based on cultures - CXR, ABG in am - Continue CIWA protocol - Continue Keppra and other home meds - Monitor and correct electrolytes - Counselling on substance abuse and medical therapy adherence once he is extubated - continue other care per attending / other senior financial consultant's ... re-evaluate in am & prn CONDITION: CRITICAL PROGNOSIS: GUARDED CODE STATUS: FULL CODE The high probability of a clinically significant, sudden or life threatening deterioration of the [Respiratory, Neurology] system(s) required my full and direct attention, intervention and personal management. The aggregate critical care time was [34] minutes. This time is in addition to time spent performing reported procedures but includes the following: [X] Data Review and interpretation [X] Patient assessment and monitoring of vital signs [X] Documentation [X] Medication orders and management Subjective Date of service: 12/16/18 Principal diagnosis: Ac. hypoxic resp failure; Status epilepticus; Ac. Encephal opathy Interval history: Patient is seen today for: Acute hypoxic respiratory failure on MVS; Status epilepticus; Acute metabolic encephalopathy due to postictal state; Alcohol abuse/dependence; SIRS without organ dysfunction; Acute Cystitis; Hypertensive urgency; Moderate malnutrition; Rhabdomylsis Seen and examined at bedside; 24hour events reviewed; nursing and respiratory care staff consulted; no adverse overnight events reported to me; resting peacefully in bed; on SBT now and tolerating well; less agitated; NO N/V/F/C Objective Vital Signs - 12hr 12/16/18 12/16/18 12/16/18 00:00 01:01 01:10 Temperature Pulse Rate 109 H 118 H 118 H Respiratory 20 13 Rate Blood Pressure 111/77 163/93 O2 Sat by Pulse 99 100 100 Oximetry 12/16/18 12/16/18 12/16/18 01:27 02:01 02:40 Temperature Pulse Rate 103 H 102 H 118 H Respiratory 18 Rate Blood Pressure 163/93 83/55 O2 Sat by Pulse 99 98 100 Oximetry 12/16/18 12/16/18 12/16/18 03:00 03:09 03:53 Temperature 99.9 F H Pulse Rate 93 H 93 H Respiratory 18 Rate Blood Pressure 119/79 O2 Sat by Pulse 100 100 Oximetry 12/16/18 12/16/18 12/16/18 03:59 04:00 05:00 Temperature Pulse Rate 91 H 97 H 95 H Respiratory 20 13 Rate Blood Pressure 102/71 102/71 98/70 O2 Sat by Pulse 99 100 99 Oximetry 12/16/18 12/16/18 12/16/18 05:01 06:00 07:00 Temperature Pulse Rate 95 H 101 H 99 H Respiratory 19 18 Rate Blood Pressure 108/67 88/61 O2 Sat by Pulse 100 100 98 Oximetry 12/16/18 12/16/18 12/16/18 08:00 08:45 09:00 Temperature 99.8 F H Pulse Rate 95 H 110 H 100 H Respiratory 18 35 H 19 Rate Blood Pressure 105/69 112/74 112/74 O2 Sat by Pulse 100 98 99 Oximetry 12/16/18 12/16/18 12/16/18 09:26 10:00 11:00 Temperature Pulse Rate 105 H 104 H 98 H Respiratory 16 32 H Rate Blood Pressure 112/74 118/74 115/75 O2 Sat by Pulse 100 100 Oximetry Constitutional: no acute distress, asleep, other (elderly looking thin AAM, normocephalic and atraumatic with mildly increased resp effort at rest on MVS) Eyes: non-icteric ENT: oropharynx dry, other (ETT 23-24 cm MARIIA) Neck: supple, no lymphadenopathy, no JVD Effort: mildly labored Ascultation: Bilateral: rhonchi Percussion: Bilateral: not dull Cardiovascular: regular rate and rhythm, other (Tachycardia, S1,S2, no murmurs, gallops or rubs) Gastrointestinal: normoactive bowel sounds, soft, non-tender, non-distended Integumentary: normal Extremities: no cyanosis, no edema, pulses normal, no ischemia or petechiae Neurologic: non-focal exam (grossly), pupils equal and round, CN II-XII normal, motor strength normal and Psychiatric: other (sedated) CBC and BMP: 12/14/18 04:21 12/14/18 04:21 ABG, PT/INR, D-dimer: ABG POC ABG pH 7.490 (7.35-7.45) H 12/16/18 04:21 ABG pH 7.446 pH Units (7.350-7.450) 12/15/18 13:45 POC ABG pCO2 32.3 (35-45) L 12/16/18 04:21 ABG pCO2 35.2 mm Hg 12/15/18 13:45 POC ABG pO2 98 (80-105) 12/16/18 04:21 ABG pO2 86.4 mm Hg (80.0-90.0) 12/15/18 13:45 POC ABG HCO3 24.6 (22-26 mml/L) 12/16/18 04:21 POC ABG Total CO2 26 (23-27mmol/L) 12/16/18 04:21 POC ABG O2 Sat 98 12/16/18 04:21 ABG O2 Saturation 97.0 % (95.0-99.0) 12/15/18 13:45 Abnormal lab findings: Abnormal Labs 12/12/18 12/12/18 12/13/18 23:45 23:45 01:02 WBC 4.4 L RBC 3.56 L MCV 104 H MCH 34 H [place] % (Auto) [place] # POC ABG pH ABG pH POC ABG pCO2 POC ABG pO2 ABG pO2 ABG O2 Saturation ABG Hemoglobin Sodium BUN Creatinine 0.6 L Glucose 120 H POC Glucose Total Creatine Kinase 447 H Urine WBC (Auto) Salicylates Acetaminophen 12/13/18 12/13/18 12/13/18 01:02 01:02 10:12 WBC RBC MCV MCH [place] % (Auto) [place] # POC ABG pH ABG pH POC ABG pCO2 POC ABG pO2 ABG pO2 ABG O2 Saturation ABG Hemoglobin Sodium BUN Creatinine Glucose POC Glucose Total Creatine Kinase 935 H Urine WBC (Auto) Salicylates < 0.3 L Acetaminophen < 5.0 L 12/13/18 12/13/18 12/14/18 Unknown Unknown 04:21 WBC RBC 3.45 L MCV 103 H MCH 35 H [place] % (Auto) 13.4 H [place] # 1.1 H POC ABG pH ABG pH POC ABG pCO2 POC ABG pO2 ABG pO2 219.0 H ABG O2 Saturation 99.3 H ABG Hemoglobin 12.7 L Sodium BUN Creatinine Glucose POC Glucose Total Creatine Kinase Urine WBC (Auto) 24.0 H Salicylates Acetaminophen 12/14/18 12/14/18 12/14/18 04:21 06:00 12:31 WBC RBC MCV MCH [place] % (Auto) [place] # POC ABG pH 7.469 H ABG pH 7.457 H POC ABG pCO2 POC ABG pO2 116 H ABG pO2 100.8 H ABG O2 Saturation ABG Hemoglobin 12.5 L Sodium 136 L BUN 6 L Creatinine 0.5 L Glucose 126 H POC Glucose Total Creatine Kinase 619 H Urine WBC (Auto) Salicylates Acetaminophen 12/15/18 12/15/18 12/15/18 06:00 11:34 13:45 WBC RBC MCV MCH [place] % (Auto) [place] # POC ABG pH ABG pH POC ABG pCO2 POC ABG pO2 ABG pO2 122.1 H ABG O2 Saturation ABG Hemoglobin 12.8 L 12.9 L Sodium BUN Creatinine Glucose POC Glucose 116 H Total Creatine Kinase Urine WBC (Auto) Salicylates Acetaminophen 12/16/18 04:21 WBC RBC MCV MCH [place] % (Auto) [place] # POC ABG pH 7.490 H ABG pH POC ABG pCO2 32.3 L POC ABG pO2 ABG pO2 ABG O2 Saturation ABG Hemoglobin Sodium BUN Creatinine Glucose POC Glucose Total Creatine Kinase Urine WBC (Auto) Salicylates Acetaminophen Chest x-ray: image reviewed (ETT in good position; stable otherwise) Allied health notes reviewed: nursing
[2018-12-16 12:49] LABS: ABG Methemoglobin 0.5 % (0.0-1.5); ABG Oxygen Saturation 97.7 % (95.0-99.0); ABG PH 7.441 pH Units (7.350-7.450); ABG PO2 98.1 mm Hg (80.0-90.0)
--- NOTE | 2018-12-16 12:58 | Consultation ---
ROOM NUMBER: [id number]. REASON FOR CONSULTATION: This is a patient who I am being asked to see for seizure. HISTORY OF PRESENT ILLNESS: This is a 63-year-old black male who was admitted through the Emergency Room of [facility]. History is unobtainable because he has a history of alcohol abuse, seizures. He is noncompliant with medication. He is a heavy daily drinker. He is admitted to the hospital at this point because of seizures. He had had a negative MRI and EEG in the past. I did review over his current CT scan of the head and there is basically a large amount of atrophy with quite severe atrophy noted over the left frontal lobe with a large area of encephalomalacia over the left frontal lobe. PHYSICAL EXAMINATION: Shows him to be unresponsive, barely moving, does open his eyes. He is on the ventilator. I do not see any focal seizure activity. The patient has symmetrical movement of the extremities. No active seizures are present. Neck is supple. No meningismus is present. IMPRESSION: Severe encephalopathy. Reviewing his CT scan, there is a large area of loss of the deep white matter in the left frontal lobe suggestive of trauma and also area in the tip of the right frontal lobe with atrophy of the cortical structures in the right frontal lobe in the frontal tip, also suggestive of atrophy due to trauma. There is also diffuse mild atrophy in the brain with prominence of the temporal horns and marked prominence of the fourth ventricle with midline cerebellar atrophy as well, which would correlate with history of heavy drinking and alcohol use given the cerebellar atrophy. RECOMMENDATIONS: Keep him on seizure medicines. I will start him on multivitamins, monitor closely for status epilepticus because he has a number of brain foci and certainly he more than likely will go into DTs at some point and so that some protocol for managing DTs is in effect such as use of IV Ativan. Prognosis given his age, multiple medical problems is very poor. Often patients have prolonged encephalopathy with this general issue of severe encephalomalacia with evidence of loss of tissue in bilateral frontal lobes as well as generalized atrophy and cerebellar atrophy, prognosis is not good. JOB# [id number] PATRICIA/NTS
--- NOTE | 2018-12-16 14:33 | Progress Note ---
Assessment and Plan Assessment and plan: Patient is a 63-year-old man with history of alcohol abuse, Seizure disorder, per his children he is not compliant with his antiseizure meds. The patient is initially afebrile with reassuring vital signs. He follows commands. His physical exam is unremarkable. While in the emergency room, he had a convulsive event Thought to be secondary to possible seizure and symptoms of alcohol withdrawal In the emergency room, the patient is confused and agitated and require excessive sedation and finally patient was intubated. Patient labs reviewed and is unremarkable. CT brain is negative for acute finding. CT C- spine is negative for acute finding. * In the ED the patient was loaded with keepra, during reevaluation patient had been progressively agitated. He received a total of 8 mg of Ativan, 5 mg of Haldol, is becoming increasingly agitated, pulling off his leads, and increasingly confused. Per ED doc " In my opinion, it is dangerous to continue sedating the patient, and he will therefore be intubated. He is emergently and administratively consented for intubation by myself, and intubated by the physician therapeutic recreation assistant" CT Head without contrast. No acute findings or interval change. Prominent bifrontal white matter hypoattenuation. KUB: Satisfactory placement of nasogastric tube. CT Cervical spine: Degenerative changes with no evidence of cervical fracture or subluxation. Status epilepticus Acute hypoxic respiratory failure on MVS Acute metabolic encephalopathy due to postictal state Alcohol abuse/dependence SIRS without organ dysfunction Acute Cystitis Hypertensive urgency Moderate malnutrition Rhabdomylsis-Improving Plan Continue supportive care Continue CIWA protocol Tolerating tube feed Continue Keppra iv and other home meds Abx IV and await Urine culture Continue weaning Monitor and correct electrolytes Counselling on compliance when more awake Started on seroquel for delirium Resume home BP meds Discussed with Nursing staff at bedside Pressure ulcer prevention protocol inpace Iv Hydralazine DVT/GI prophy Continue safety Restraints The high probability of a clinically significant, sudden or life threatening deterioration of the [nEURO] system(s) required my full and direct attention, intervention and personal management. The aggregate critical care time was [35] minutes. This time is in addition to time spent performing reported procedures but includes the following: [X] Data Review and interpretation [X] Patient assessment and monitoring of vital signs [X] Documentation [X] Medication orders and management History Interval history: Patient seen and examined, remains intubated, sedated this morning, not fully following instructions, gets agitated still Hospitalist Physical - Constitutional Vitals: Temp Pulse Resp BP Pulse Ox 99.2 F 101 H 29 H 115/77 100 12/16/18 12:00 12/16/18 12:30 12/16/18 12:30 12/16/18 12:30 12/16/18 12:30 General appearance: Present: mild distress, disheveled, other (Intubated, sedated) Results - Labs CBC & Chem 7: 12/14/18 04:21 12/14/18 04:21 Labs: Laboratory Last Values WBC 8.2 K/mm3 (4.5-11.0) 12/14/18 04:21 RBC 3.45 M/mm3 (3.65-5.03) L 12/14/18 04:21 Hgb 12.1 gm/dl (11.8-15.2) 12/14/18 04:21 Hct 35.5 % (35.5-45.6) 12/14/18 04:21 MCV 103 fl (84-94) H 12/14/18 04:21 MCH 35 pg (28-32) H 12/14/18 04:21 MCHC 34 % (32-34) 12/14/18 04:21 RDW 13.8 % (13.2-15.2) 12/14/18 04:21 Plt Count 243 K/mm3 (140-440) 12/14/18 04:21 Lymph % (Auto) 18.5 % (13.4-35.0) 12/14/18 04:21 [place] % (Auto) 13.4 % (0.0-7.3) H 12/14/18 04:21 Eos % (Auto) 0.4 % (0.0-4.3) 12/14/18 04:21 Baso % (Auto) 0.8 % (0.0-1.8) 12/14/18 04:21 Lymph # 1.5 K/mm3 (1.2-5.4) 12/14/18 04:21 [place] # 1.1 K/mm3 (0.0-0.8) H 12/14/18 04:21 Eos # 0.0 K/mm3 (0.0-0.4) 12/14/18 04:21 Baso # 0.1 K/mm3 (0.0-0.1) 12/14/18 04:21 Seg Neutrophils % 66.9 % (40.0-70.0) 12/14/18 04:21 Seg Neutrophils # 5.5 K/mm3 (1.8-7.7) 12/14/18 04:21 POC ABG pH 7.490 (7.35-7.45) H 12/16/18 04:21 ABG pH 7.441 pH Units (7.350-7.450) 12/16/18 12:30 POC ABG pCO2 32.3 (35-45) L 12/16/18 04:21 ABG pCO2 36.0 mm Hg 12/16/18 12:30 POC ABG pO2 98 (80-105) 12/16/18 04:21 ABG pO2 98.1 mm Hg (80.0-90.0) H 12/16/18 12:30 POC ABG HCO3 24.6 (22-26 mml/L) 12/16/18 04:21 ABG HCO3 24.0 mmol/L (20.0-26.0) 12/16/18 12:30 POC ABG Total CO2 26 (23-27mmol/L) 12/16/18 04:21 POC ABG O2 Sat 98 12/16/18 04:21 ABG O2 Saturation 97.7 % (95.0-99.0) 12/16/18 12:30 ABG O2 Content 12.4 (0.0-44) 12/16/18 12:30 POC ABG Base Excess 1 ((-2) - (+3)mmol/L) 12/16/18 04:21 ABG Base Excess 0.0 mmol/L (-2.0-3.0) 12/16/18 12:30 ABG Hemoglobin 9.1 gm/dl (14.0-18.0) L 12/16/18 12:30 ABG Carboxyhemoglobin 1.6 % (0.0-5.0) 12/16/18 12:30 ABG Methemoglobin 0.5 % (0.0-1.5) 12/16/18 12:30 Oxyhemoglobin 95.6 % (95.0-99.0) 12/16/18 12:30 FiO2 30 % 12/16/18 12:30 Sodium 136 mmol/L (137-145) L 12/14/18 04:21 Potassium 3.6 mmol/L (3.6-5.0) D 12/14/18 04:21 Chloride 98.8 mmol/L (98-107) 12/14/18 04:21 Carbon Dioxide 25 mmol/L (22-30) 12/14/18 04:21 Anion Gap 16 mmol/L 12/14/18 04:21 BUN 6 mg/dL (9-20) L 12/14/18 04:21 Creatinine 0.5 mg/dL (0.8-1.5) L 12/14/18 04:21 Estimated GFR > 60 ml/min 12/14/18 04:21 BUN/Creatinine Ratio 12 % 12/14/18 04:21 Glucose 126 mg/dL (75-100) H 12/14/18 04:21 POC Glucose 116 (70-105) H 12/15/18 11:34 Calcium 8.9 mg/dL (8.4-10.2) 12/14/18 04:21 Magnesium 2.20 mg/dL (1.7-2.3) 12/13/18 01:02 Ammonia 35.0 umol/L (25-60) 12/13/18 10:12 Total Creatine Kinase 619 units/L (55-170) H 12/14/18 04:21 Urine Color Yellow (Yellow) 12/13/18 Unknown Urine Turbidity Clear (Clear) 12/13/18 Unknown Urine pH 5.0 (5.0-7.0) 12/13/18 Unknown Ur Specific Sunol 1.016 (1.003-1.030) 12/13/18 Unknown Urine Protein 30 mg/dl mg/dL (Negative) 12/13/18 Unknown Urine Glucose (UA) Neg mg/dL (Negative) 12/13/18 Unknown Urine Ketones Neg mg/dL (Negative) 12/13/18 Unknown Urine Blood Neg (Negative) 12/13/18 Unknown Urine Nitrite Neg (Negative) 12/13/18 Unknown Urine Bilirubin Neg (Negative) 12/13/18 Unknown Urine Urobilinogen < 2.0 mg/dL (<2.0) 12/13/18 Unknown Ur Leukocyte Esterase Sm (Negative) 12/13/18 Unknown Urine WBC (Auto) 24.0 /HPF (0.0-6.0) H 12/13/18 Unknown Urine RBC (Auto) 6.0 /HPF (0.0-6.0) 12/13/18 Unknown U Epithel Cells (Auto) 1.0 /HPF (0-13.0) 12/13/18 Unknown Salicylates < 0.3 mg/dL (2.8-20.0) L 12/13/18 01:02 Urine Opiates Screen Presumptive negative 12/13/18 Unknown Urine Methadone Screen Presumptive negative 12/13/18 Unknown Acetaminophen < 5.0 ug/mL (10.0-30.0) L 12/13/18 01:02 Ur Barbiturates Screen Presumptive negative 12/13/18 Unknown Ur Phencyclidine Scrn Presumptive negative 12/13/18 Unknown Ur Amphetamines Screen Presumptive negative 12/13/18 Unknown U Benzodiazepines Scrn Presumptive negative 12/13/18 Unknown Urine Cocaine Screen Presumptive negative 12/13/18 Unknown U Marijuana (THC) Screen Presumptive negative 12/13/18 Unknown Drugs of Abuse Note Disclamer 12/13/18 Unknown Plasma/Serum Alcohol < 0.01 % (0-0.07) 12/13/18 01:02 Active Medications - Current Medications Current Medications: Generic Name Dose Route Start Last Admin Trade Name Freq PRN Reason Stop Dose Admin Amlodipine Besylate 10 mg 12/13/18 10:00 12/16/18 09:26 Norvasc PO 10 mg QDAY KOTA Administration Lipase/Protease/Amylase 1 each 12/14/18 14:[address] 10,500 Unit FEEDTUBE PRN PRN For Clogged Feeding Tube Aspirin 81 mg 12/15/18 10:00 12/16/18 09:26 Baby Aspirin PO 81 mg QDAY KOTA Administration Famotidine 20 mg 12/15/18 10:00 12/16/18 09:27 Pepcid IV 20 mg BID KOTA Administration Fentanyl 50 mcg 12/13/18 04:07 12/13/18 05:58 Sublimaze IV 50 mcg Q10MIN PRN Administration ANALGESIA Folic Acid 1 mg 12/13/18 10:00 12/16/18 09:27 Folvite PO 1 mg QDAY KOTA Administration Haloperidol Lactate 5 mg 12/15/18 12:00 Haldol IV Q6HR PRN Agitation Heparin Sodium (Porcine) 5,000 unit 12/15/18 10:00 12/16/18 09:27 Heparin SUB-Q 5,000 unit Q12HR KOTA Administration Hydralazine HCl 10 mg 12/13/18 17:28 12/14/18 13:32 Apresoline IV 10 mg Q6HR PRN Administration High blood pressure Hydrophilic Ointment 1 applic 12/13/18 04:07 Vaseline Lip Therapy TP Q2HR PRN Dry Lips Fentanyl Citrate 2,000 mcg in 100 mls @ 3.561 mls/hr 12/13/18 05:00 Fentanyl Drip Premix IV TITR KOTA Protocol 1 MCG/KG/HR Ceftriaxone Sodium 1 gm in 50 mls @ 100 mls/hr 12/13/18 10:00 12/16/18 09:27 Rocephin/Ns 1 Gm/50 Ml IV 12/17/18 10:29 100 mls/hr Q24HR KOTA Administration Protocol Levetiracetam 500 mg 12/16/18 10:00 12/16/18 09:26 Keppra PO 500 mg BID KOTA Administration Lorazepam 2 mg 12/13/18 00:52 12/16/18 09:26 Ativan IV 2 mg Q1HR PRN Administration CIWA-Ar 8-15 Lorazepam 4 mg 12/13/18 00:52 12/15/18 20:35 Ativan IV 4 mg Q1HR PRN Administration CIWA-Ar 16-25 Lorazepam 4 mg 12/13/18 00:52 12/13/18 02:26 Ativan IV 4 mg Q15MIN PRN Administration CIWA-Ar >25 Lorazepam 2 mg 12/13/18 04:07 Ativan IV Q10MIN PRN Agitation Multi-Ingred Cream/Lotion/Oil/Oint 1 applic 12/13/18 04:07 Artificial Tears Ophth Oint OU Q4HR PRN Dry Eye(s) Pravastatin Sodium 10 mg 12/13/18 22:00 12/15/18 21:29 Pravachol PO 10 mg QHS KOTA Administration Quetiapine Fumarate 300 mg 12/15/18 22:00 12/16/18 09:26 Seroquel PO 300 mg BID KOTA Administration Simple Syrup 15 ml 12/14/18 14:10 Simple Syrup FEEDTUBE PRN PRN Hypoglycemia Simple Syrup 30 ml 12/14/18 14:10 Simple Syrup FEEDTUBE PRN PRN Hypoglycemia Sodium Bicarbonate 325 mg 12/14/18 14:10 Sodium Bicarbonate FEEDTUBE PRN PRN For Clogged Feeding Tube Sodium Chloride 10 ml 12/13/18 10:00 12/16/18 09:28 Sodium Chloride Flush Syringe 10 Ml IV 10 ml BID KOTA Administration Sodium Chloride 10 ml 12/13/18 08:30 Sodium Chloride Flush Syringe 10 Ml IV PRN PRN LINE FLUSH Thiamine HCl 100 mg 12/13/18 10:00 12/16/18 09:26 Vitamin B-1 PO 100 mg QDAY KOTA Administration Nutrition/Malnutrition Assess - Dietary Evaluation Nutrition/Malnutrition Findings: Nutrition Notes Start: 12/14/18 10:20 Freq: Status: Active Protocol: Document 12/15/18 10:00 RS (Rec: 12/15/18 10:06 RS [id number]) Co-Sign 12/15/18 10:00 LP Nutrition Notes Initial or Follow up Reassessment Other Pertinent Diagnosis ETOH dependence, Seizure disorder, acute encephalopathy , Rhabdomyolysis Current Diet NPO Labs/Tests reviewed Pertinent Medications reviewed Height 6 ft 1 in Weight 72 kg [place] Body Weight (kg) 83.63 BMI 20.9 Subjective/Other Information F/U for TF tolerance/rate. Vital AF 1.2 running at 30 mL/ hr. Burn Absent Trauma Absent GI Symptoms None Minimum of two criteria No physical signs of malnutrition #1 Nutrition Diagnosis Inadequate oral intake Diagnosis Progress(for reassessment Continues documentation) Is patient on ventilator? Yes Is Patient Ambulatory and/or Out of Bed No REE-([facility]-confined to bed) 1876.032 Kcal/Kg value to use for calculation 31 Approximate Energy Requirements Using 2232 kcal/Kg Calculation Used for Recommendations Kcal/kg Additional Notes PRO needs (1.2-2g/kg): 86-144g/day Fluid needs: 1mL/kcal Nutrition Intervention Change Diet Order: TF Nutrition Support: Vital AF 1.2 at 75 mL/hr (goal rate) Free water flush of 150 mL q4hr Kcal 2,160 Protein (gm) 135 Fluid (mL) 1,460 Goal #1 TF tolerance Anticipated Discharge Needs: unable to determine at this time Follow-Up By: 10/21/19 Additional Comments F/U for TF tolerance/ rate
[2018-12-16 18:14] LABS: ABG Base Excess 1.9 mmol/L (-2.0-3.0); ABG HCO3 25.4 mmol/L (20.0-26.0); ABG Methemoglobin 0.4 % (0.0-1.5); ABG Oxygen Saturation 94.7 % (95.0-99.0); ABG PCO2 36.4 mm Hg; ABG PH 7.462 pH Units (7.350-7.450); ABG PO2 67.7 mm Hg (80.0-90.0)
[2018-12-16] MEDS: TRANSDERM-SCOP TD SCH (18:50)
[2018-12-16] MEDS: PRAVACHOL PO SCH (21:55)
--- NOTE | 2018-12-17 03:01 | XRay Report ---
CHEST 1 VIEW INDICATION / CLINICAL INFORMATION: follow up respiratory failure. COMPARISON: 12/16/2018 FINDINGS: SUPPORT DEVICES: The patient has been extubated in the interim. The esophagogastric tube remains with in the upper stomach. HEART / MEDIASTINUM: The cardiomediastinal silhouette has not significantly changed in the interim. LUNGS / PLEURA: Slight increase in airspace opacity within the right lower lung in the interim. Signer Name: Shad Cui MD Signed: 12/17/2018 2:56 AM Workstation Name: [id number]
[2018-12-17 05:22] LABS: Hematocrit 34.9 % (35.5-45.6); Hemoglobin 12.1 gm/dl (11.8-15.2); Mean Corpuscular HGB Conc 35 % (32-34); Mean Corpuscular Volume 102 fl (84-94); Platelet Count 279 K/mm3 (140-440); Red Blood Count 3.41 M/mm3 (3.65-5.03); Red Cell Distribution Width 13.6 % (13.2-15.2)
[2018-12-17 05:42] LABS: BUN/Creatinine Ratio 25; Blood Urea Nitrogen 15 mg/dL (9-20); Calcium 8.7 mg/dL (8.4-10.2); Hemolysis Index 32
[2018-12-17] MEDS: ATIVAN IV PRN ×3 (08:40→20:21)
[2018-12-17] MEDS: FOLVITE PO SCH (10:00)
[2018-12-17] MEDS: HEPARIN SUB-Q SCH ×2 (10:00→21:04)
[2018-12-17] MEDS: KEPPRA PO SCH ×2 (10:00→21:03)
[2018-12-17] MEDS: ROCEPHIN/NS 1 GM/50 ML 1 GM/50 ML BAG IV SCH (10:00)
[2018-12-17] MEDS: PEPCID IV SCH ×2 (10:00→21:04)
[2018-12-17] MEDS: VITAMIN B-1 PO SCH (10:00)
[2018-12-17] MEDS: SODIUM CHLORIDE FLUSH SYRINGE 10 ML IV SCH ×2 (10:00→21:05)
[2018-12-17] MEDS: BABY ASPIRIN PO SCH (10:00)
--- NOTE | 2018-12-17 13:01 | Progress Note ---
Assessment and Plan A/p Status epilepticus Acute hypoxic respiratory failure on MVS Acute metabolic encephalopathy due to postictal state Alcohol abuse/dependence SIRS without organ dysfunction Acute Cystitis Hypertensive urgency Moderate malnutrition Rhabdomylsis-Improving Plan Continue supportive care Continue CIWA protocol Tolerating tube feed Continue Keppra iv and other home meds Abx IV and await Urine culture Continue weaning Monitor and correct electrolytes Counselling on compliance when more awake Started on seroquel for delirium Resume home BP meds Discussed with Nursing staff at bedside Pressure ulcer prevention protocol inpace Iv Hydralazine DVT/GI prophy Continue safety Restraints The high probability of a clinically significant, sudden or life threatening deterioration of the [nEURO] system(s) required my full and direct attention, intervention and personal management. The aggregate critical care time was [38] minutes. This time is in addition to time spent performing reported procedures but includes the following: [X] Data Review and interpretation [X] Patient assessment and monitoring of vital signs [X] Documentation [X] Medication orders and management Subjective Date of service: 12/17/18 Principal diagnosis: Ac. hypoxic resp failure; Status epilepticus; Ac. Encephalopathy Interval history: Patient is a 63-year-old man with history of alcohol abuse, Seizure disorder, per his children he is not compliant with his antiseizure meds. The patient is initially afebrile with reassuring vital signs. He follows commands. His physical exam is unremarkable. While in the emergency room, he had a convulsive event Thought to be secondary to possible seizure and symptoms of alcohol withdrawal In the emergency room, the patient is confused and agitated and require excessive sedation and finally patient was intubated. Patient labs reviewed and is unremarkable. CT brain is negative for acute finding. CT C- spine is negative for acute finding. * In the ED the patient was loaded with keppra, during reevaluation patient had been progressively agitated. He received a total of 8 mg of Ativan, 5 mg of Haldol, is becoming increasingly agitated, pulling off his leads, and increasingly confused. Per ED doc " In my opinion, it is dangerous to continue sedating the patient, and he will therefore be intubated. He is emergently and administratively consented for intubation by myself, and intubated by the physician legislative assistant" CT Head without contrast. No acute findings or interval change. Prominent bifrontal white matter hypoattenuation. KUB: Satisfactory placement of nasogastric tube. CT Cervical spine: Degenerative changes with no evidence of cervical fracture or subluxation. No interval change Objective - Constitutional Vitals: Vital Signs - 12hr 12/17/18 12/17/18 12/17/18 01:00 01:01 02:00 Temperature Pulse Rate 86 86 86 Pulse Rate [ From Monitor] Respiratory 21 24 Rate Blood Pressure 139/82 108/67 O2 Sat by Pulse 100 98 Oximetry 12/17/18 12/17/18 12/17/18 03:00 03:59 04:00 Temperature 99.1 F Pulse Rate 83 86 85 Pulse Rate [ From Monitor] Respiratory 26 H 25 H 25 H Rate Blood Pressure 111/72 118/74 118/74 O2 Sat by Pulse 100 86 99 Oximetry 12/17/18 12/17/18 12/17/18 05:00 06:00 07:01 Temperature Pulse Rate 76 83 78 Pulse Rate [ From Monitor] Respiratory 23 22 17 Rate Blood Pressure 126/77 108/72 147/90 O2 Sat by Pulse 99 100 Oximetry 12/17/18 12/17/18 12/17/18 08:00 08:50 09:00 Temperature 99.7 F H Pulse Rate 84 75 93 H Pulse Rate [ 96 H From Monitor] Respiratory 20 25 H 14 Rate Blood Pressure 115/59 115/59 120/69 O2 Sat by Pulse 100 100 100 Oximetry 12/17/18 12/17/18 12/17/18 10:00 11:00 12:57 Temperature 99.6 F Pulse Rate 92 H 93 H Pulse Rate [ From Monitor] Respiratory 13 15 Rate Blood Pressure 126/65 124/80 O2 Sat by Pulse 100 99 Oximetry General appearance: Present: no acute distress, well-nourished - EENT Eyes: PERRL, EOM intact ENT: hearing intact, clear oral mucosa Ears: bilateral: normal - Neck Neck: supple, normal ROM - Respiratory Respiratory effort: normal Respiratory: bilateral: CTA - Breasts Breasts: normal - Cardiovascular Heart rate: 88 Rhythm: regular Heart Sounds: Present: S1 & S2. Absent: gallop, rub Extremities: pulses intact, No edema, normal color, Full ROM - Gastrointestinal General gastrointestinal: Present: soft, non-tender, non-distended, normal bowel sounds - Genitourinary Male genitourinary: normal - Integumentary Integumentary: clear, warm, dry - Musculoskeletal Musculoskeletal: 1, strength equal bilaterally - Neurologic Neurologic: moves all extremities - Psychiatric Psychiatric: memory intact, appropriate mood/affect, intact judgment & insight - Labs CBC & Chem 7: 12/17/18 04:40 12/17/18 04:40 Labs: Abnormal lab results 12/16/18 12/17/18 12/17/18 Range/Units 17:40 04:40 04:40 RBC 3.41 L (3.65-5.03) M/mm3 Hct 34.9 L (35.5-45.6) % MCV 102 H (84-94) fl MCH 36 H (28-32) pg MCHC 35 H (32-34) % ABG pH 7.462 H (7.350-7.450) pH Units ABG pO2 67.7 L (80.0-90.0) mm Hg ABG O2 Saturation 94.7 L (95.0-99.0) % ABG Hemoglobin 13.0 L (14.0-18.0) gm/dl Oxyhemoglobin 92.8 L (95.0-99.0) % Creatinine 0.6 L (0.8-1.5) mg/dL Glucose 119 H (75-100) mg/dL POC Glucose (70-105) Total Creatine Kinase (55-170) units/L 12/17/18 12/17/18 Range/Units 05:06 11:57 RBC (3.65-5.03) M/mm3 Hct (35.5-45.6) % MCV (84-94) fl MCH (28-32) pg MCHC (32-34) % ABG pH (7.350-7.450) pH Units ABG pO2 (80.0-90.0) mm Hg ABG O2 Saturation (95.0-99.0) % ABG Hemoglobin (14.0-18.0) gm/dl Oxyhemoglobin (95.0-99.0) % Creatinine (0.8-1.5) mg/dL Glucose (75-100) mg/dL POC Glucose 129 H (70-105) Total Creatine Kinase 176 H (55-170) units/L
--- NOTE | 2018-12-17 14:36 | Progress Note ---
Assessment and Plan Acute hypoxic respiratory failure on MVS Status epilepticus Acute metabolic encephalopathy due to postictal state Alcohol abuse/dependence SIRS without organ dysfunction Acute Cystitis Hypertensive urgency Moderate malnutrition Rhabdomylsis - stop dailuy CXR's - continue BIPAP qhs and prn in daytime for SOB - continue Seroquel at 300 mg bid for delirium and to spare IV sedatives - continue GI & VTE prophylaxis - ST evaluation and advance diet as tolerated - continue aspiration precautions - Supplemental oxygen wean for O2 sat's > 90% - continue bronchodilators with pulmonary hygiene per RT - Mobility protocols for pressure ulcer prevention - continue chronic home medications - continue accuchecks with glycemic control per SSI for target blood glucose 140-180mg/dL - Avoid hypoglycemia - follow clinically off AB's - Continue CIWA protocol - Continue Keppra and other home meds - Monitor and correct electrolytes - Counselling on substance abuse and medical therapy adherence once he is ext ubated - continue other care per attending / other software developer consultant's ... re-evaluate in am & prn CONDITION: FAIR PROGNOSIS: GUARDED CODE STATUS: FULL CODE I have spent ( >35 ) minutes with the patient w/ >50% of the time spent counseling and/or coordinating care for this patient. Counseling topics and/or how time was spent coordinating patient's care is outlined in the impression and plan above. Subjective Date of service: 12/17/18 Principal diagnosis: Ac. hypoxic resp failure; Status epilepticus; Ac. Encephalopathy Interval history: Patient is seen today for: Acute hypoxic respiratory failure on MVS; Status epilepticus; Acute metabolic encephalopathy due to postictal state; Alcohol abuse/dependence; SIRS without organ dysfunction; Acute Cystitis; Hypertensive urgency; Moderate malnutrition; Rhabdomylsis Seen and examined at bedside; 24hour events reviewed; nursing and respiratory care staff consulted; no adverse overnight events reported to me; resting peacefully in bed; desaturated overnight and placed on BIPAP; doing better; still on CIWA protocol; No N/V/F/C Objective Vital Signs - 12hr 12/17/18 12/17/18 12/17/18 03:00 03:59 04:00 Temperature 99.1 F Pulse Rate 83 86 85 Pulse Rate [ From Monitor] Respiratory 26 H 25 H 25 H Rate Blood Pressure 111/72 118/74 118/74 O2 Sat by Pulse 100 86 99 Oximetry 12/17/18 12/17/1819 05:00 06:00 07:01 Temperature Pulse Rate 76 83 78 Pulse Rate [ From Monitor] Respiratory 23 22 17 Rate Blood Pressure 126/77 108/72 147/90 O2 Sat by Pulse 99 100 Oximetry 12/17/18 12/17/18 12/17/18 08:00 08:50 09:00 Temperature 99.7 F H Pulse Rate 84 75 93 H Pulse Rate [ 96 H From Monitor] Respiratory 20 25 H 14 Rate Blood Pressure 115/59 115/59 120/69 O2 Sat by Pulse 100 100 100 Oximetry 12/17/18 12/17/18 12/17/18 10:00 11:00 12:57 Temperature 99.6 F Pulse Rate 92 H 93 H Pulse Rate [ From Monitor] Respiratory 13 15 Rate Blood Pressure 126/65 124/80 O2 Sat by Pulse 100 99 Oximetry Constitutional: no acute distress, asleep, other (elderly looking thin AAM, normocephalic and atraumatic with mildly increased resp effort at rest on MVS) Eyes: non-icteric ENT: oropharynx dry, other (extubated) Neck: supple, no lymphadenopathy, no JVD Effort: mildly labored Ascultation: Bilateral: rhonchi Percussion: Bilateral: not dull Cardiovascular: regular rate and rhythm, other (Tachycardia, S1,S2, no murmurs, gallops or rubs) Gastrointestinal: normoactive bowel sounds, soft, non-tender, non-distended Integumentary: normal Extremities: no cyanosis, no edema, pulses normal, no ischemia or petechiae Neurologic: non-focal exam (grossly), pupils equal and round, CN II-XII normal, motor strength normal and Psychiatric: other (sedated) CBC and BMP: 12/17/18 04:40 12/17/18 04:40 ABG, PT/INR, D-dimer: ABG POC ABG pH 7.490 (7.35-7.45) H 12/16/18 04:21 ABG pH 7.462 pH Units (7.350-7.450) H 12/16/18 17:40 POC ABG pCO2 32.3 (35-45) L 12/16/18 04:21 ABG pCO2 36.4 mm Hg 12/16/18 17:40 POC ABG pO2 98 (80-105) 12/16/18 04:21 ABG pO2 67.7 mm Hg (80.0-90.0) L 12/16/18 17:40 POC ABG HCO3 24.6 (22-26 mml/L) 12/16/18 04:21 POC ABG Total CO2 26 (23-27mmol/L) 12/16/18 04:21 POC ABG O2 Sat 98 12/16/18 04:21 ABG O2 Saturation 94.7 % (95.0-99.0) L 12/16/18 17:40 Abnormal lab findings: Abnormal Labs 12/12/18 12/12/18 12/13/18 23:45 23:45 01:02 WBC 4.4 L RBC 3.56 L Hct MCV 104 H MCH 34 H MCHC [place] % (Auto) [place] # POC ABG pH ABG pH POC ABG pCO2 POC ABG pO2 ABG pO2 ABG O2 Saturation ABG Hemoglobin Oxyhemoglobin Sodium BUN Creatinine 0.6 L Glucose 120 H POC Glucose Total Creatine Kinase 447 H Urine WBC (Auto) Salicylates Acetaminophen 12/13/18 12/13/18 12/13/18 01:02 01:02 10:12 WBC RBC Hct MCV MCH MCHC [place] % (Auto) [place] # POC ABG pH ABG pH POC ABG pCO2 POC ABG pO2 ABG pO2 ABG O2 Saturation ABG Hemoglobin Oxyhemoglobin Sodium BUN Creatinine Glucose POC Glucose Total Creatine Kinase 935 H Urine WBC (Auto) Salicylates < 0.3 L Acetaminophen < 5.0 L 12/13/18 12/13/18 12/14/18 Unknown Unknown 04:21 WBC RBC 3.45 L Hct MCV 103 H MCH 35 H MCHC [place] % (Auto) 13.4 H [place] # 1.1 H POC ABG pH ABG pH POC ABG pCO2 POC ABG pO2 ABG pO2 219.0 H ABG O2 Saturation 99.3 H ABG Hemoglobin 12.7 L Oxyhemoglobin Sodium BUN Creatinine Glucose POC Glucose Total Creatine Kinase Urine WBC (Auto) 24.0 H Salicylates Acetaminophen 12/14/18 12/14/18 12/14/18 04:21 06:00 12:31 WBC RBC Hct MCV MCH MCHC [place] % (Auto) [place] # POC ABG pH 7.469 H ABG pH 7.457 H POC ABG pCO2 POC ABG pO2 116 H ABG pO2 100.8 H ABG O2 Saturation ABG Hemoglobin 12.5 L Oxyhemoglobin Sodium 136 L BUN 6 L Creatinine 0.5 L Glucose 126 H POC Glucose Total Creatine Kinase 619 H Urine WBC (Auto) Salicylates Acetaminophen 12/15/18 12/15/18 12/15/18 06:00 11:34 13:45 WBC RBC Hct MCV MCH MCHC [place] % (Auto) [place] # POC ABG pH ABG pH POC ABG pCO2 POC ABG pO2 ABG pO2 122.1 H ABG O2 Saturation ABG Hemoglobin 12.8 L 12.9 L Oxyhemoglobin Sodium BUN Creatinine Glucose POC Glucose 116 H Total Creatine Kinase Urine WBC (Auto) Salicylates Acetaminophen 12/16/18 12/16/18 12/16/18 04:21 12:30 17:40 WBC RBC Hct MCV MCH MCHC [place] % (Auto) [place] # POC ABG pH 7.490 H ABG pH 7.462 H POC ABG pCO2 32.3 L POC ABG pO2 ABG pO2 98.1 H 67.7 L ABG O2 Saturation 94.7 L ABG Hemoglobin 9.1 L 13.0 L Oxyhemoglobin 92.8 L Sodium BUN Creatinine Glucose POC Glucose Total Creatine Kinase Urine WBC (Auto) Salicylates Acetaminophen 12/17/18 12/17/18 12/17/18 04:40 04:40 05:06 WBC RBC 3.41 L Hct 34.9 L MCV 102 H MCH 36 H MCHC 35 H [place] % (Auto) [place] # POC ABG pH ABG pH POC ABG pCO2 POC ABG pO2 ABG pO2 ABG O2 Saturation ABG Hemoglobin Oxyhemoglobin Sodium BUN Creatinine 0.6 L Glucose 119 H POC Glucose Total Creatine Kinase 176 H Urine WBC (Auto) Salicylates Acetaminophen 12/17/18 11:57 WBC RBC Hct MCV MCH MCHC [place] % (Auto) [place] # POC ABG pH ABG pH POC ABG pCO2 POC ABG pO2 ABG pO2 ABG O2 Saturation ABG Hemoglobin Oxyhemoglobin Sodium BUN Creatinine Glucose POC Glucose 129 H Total Creatine Kinase Urine WBC (Auto) Salicylates Acetaminophen Allied health notes reviewed: nursing
[2018-12-17] MEDS: PRAVACHOL PO SCH (21:03)
[2018-12-18] MEDS: ATIVAN IV PRN ×2 (06:03→19:20)
[2018-12-18] MEDS: PEPCID PO SCH ×2 (09:29→21:28)
[2018-12-18] MEDS: FOLVITE PO SCH (09:29)
[2018-12-18] MEDS: KEPPRA PO SCH ×2 (09:29→21:28)
[2018-12-18] MEDS: VITAMIN B-1 PO SCH (09:29)
[2018-12-18] MEDS: SODIUM CHLORIDE FLUSH SYRINGE 10 ML IV SCH ×2 (09:30→21:28)
[2018-12-18] MEDS: BABY ASPIRIN PO SCH (09:30)
[2018-12-18] MEDS: HEPARIN SUB-Q SCH ×2 (09:30→21:45)
--- NOTE | 2018-12-18 10:38 | Progress Note ---
Assessment and Plan Assessment and plan: Patient is a 63-year-old man with history of alcohol abuse, Seizure disorder, per his children he is not compliant with his antiseizure meds. The patient is initially afebrile with reassuring vital signs. He follows commands. His physical exam is unremarkable. While in the emergency room, he had a convulsive event Thought to be secondary to possible seizure and symptoms of alcohol withdrawal In the emergency room, the patient is confused and agitated and require excessive sedation and finally patient was intubated. Patient labs reviewed and is unremarkable. CT brain is negative for acute finding. CT C- spine is negative for acute finding. * In the ED the patient was loaded with keepra, during reevaluation patient had been progressively agitated. He received a total of 8 mg of Ativan, 5 mg of Haldol, is becoming increasingly agitated, pulling off his leads, and increasingly confused. Per ED doc " In my opinion, it is dangerous to continue sedating the patient, and he will therefore be intubated. He is emergency and administratively consented for intubation by myself, and intubated by the physician front desk assistant" * Patient was intubated for greater than 96 hrs and now extubated. He was extubated to BIPAP and now on NC. * He was on restriants to prevent pulling and is now awaiting post extubation Swallow eval CT Head without contrast. No acute findings or interval change. Prominent bifrontal white matter hypoattenuation. KUB: Satisfactory placement of nasogastric tube. CT Cervical spine: Degenerative changes with no evidence of cervical fracture or subluxation. Status epilepticus- Resolved Acute hypoxic respiratory failure on MVS- now extubated Acute metabolic encephalopathy due to postictal state Alcohol abuse/dependence SIRS without organ dysfunction Acute Cystitis- Culture with no growth Hypertensive urgency Moderate malnutrition Rhabdomylsis-Improving Plan Continue supportive care Continue CIWA protocol Tolerating tube feed Aspiration precautions Urine culture was with no growth Continue Keppra iv and other home meds Abx IV Switch to PO once tolerating PO Monitor and correct electrolytes Counselling on compliance when more awake Wean off seroquel now that patient is extubated Resume home BP meds Discussed with Nursing staff at bedside Pressure ulcer prevention protocol inpace Iv Hydralazine DVT/GI prophy History Interval history: Patient seen and examined, Now extubated, on Nasal cannula and doing well, still with CIWA of 8, Hospitalist Physical - Physical exam Narrative exam: General appearance: Present: mild distress, disheveled, Now extubated and doing well - EENT Eyes: Present: PERRL ENT: hearing intact - Neck Neck: Present: supple, normal ROM - Respiratory Respiratory effort: normal Respiratory: bilateral: diminished - Cardiovascular Rhythm: regular Heart Sounds: Present: S1 & S2. Absent: systolic murmur, diastolic murmur - Extremities Extremities: no ischemia, pulses intact, pulses symmetrical, No edema, normal temperature, normal color, Full ROM Peripheral Pulses: within normal limits - Abdominal General gastrointestinal: soft, non-tender, non-distended, normal bowel sounds - Integumentary Integumentary: Present: warm - Psychiatric Psychiatric: FLAT, other (altered sensorium) - Neurologic Neurologic: CNII-XII intact - Allied Health Allied health notes reviewed: nursing - Constitutional Vitals: Temp Pulse Resp BP Pulse Ox 99.5 F 77 22 136/76 100 12/18/18 08:00 12/18/18 09:30 12/18/18 09:00 12/18/18 09:30 12/18/18 09:00 General appearance: Present: no acute distress, well-nourished Results - Labs CBC & Chem 7: 12/17/18 04:40 12/17/18 04:40 Labs: Laboratory Last Values WBC 9.0 K/mm3 (4.5-11.0) 12/17/18 04:40 RBC 3.41 M/mm3 (3.65-5.03) L 12/17/18 04:40 Hgb 12.1 gm/dl (11.8-15.2) 12/17/18 04:40 Hct 34.9 % (35.5-45.6) L 12/17/18 04:40 MCV 102 fl (84-94) H 12/17/18 04:40 MCH 36 pg (28-32) H 12/17/18 04:40 MCHC 35 % (32-34) H 12/17/18 04:40 RDW 13.6 % (13.2-15.2) 12/17/18 04:40 Plt Count 279 K/mm3 (140-440) 12/17/18 04:40 Lymph % (Auto) 18.5 % (13.4-35.0) 12/14/18 04:21 [place] % (Auto) 13.4 % (0.0-7.3) H 12/14/18 04:21 Eos % (Auto) 0.4 % (0.0-4.3) 12/14/18 04:21 Baso % (Auto) 0.8 % (0.0-1.8) 12/14/18 04:21 Lymph # 1.5 K/mm3 (1.2-5.4) 12/14/18 04:21 [place] # 1.1 K/mm3 (0.0-0.8) H 12/14/18 04:21 Eos # 0.0 K/mm3 (0.0-0.4) 12/14/18 04:21 Baso # 0.1 K/mm3 (0.0-0.1) 12/14/18 04:21 Seg Neutrophils % 66.9 % (40.0-70.0) 12/14/18 04:21 Seg Neutrophils # 5.5 K/mm3 (1.8-7.7) 12/14/18 04:21 POC ABG pH 7.490 (7.35-7.45) H 12/16/18 04:21 ABG pH 7.462 pH Units (7.350-7.450) H 12/16/18 17:40 POC ABG pCO2 32.3 (35-45) L 12/16/18 04:21 ABG pCO2 36.4 mm Hg 12/16/18 17:40 POC ABG pO2 98 (80-105) 12/16/18 04:21 ABG pO2 67.7 mm Hg (80.0-90.0) L 12/16/18 17:40 POC ABG HCO3 24.6 (22-26 mml/L) 12/16/18 04:21 ABG HCO3 25.4 mmol/L (20.0-26.0) 12/16/18 17:40 POC ABG Total CO2 26 (23-27mmol/L) 12/16/18 04:21 POC ABG O2 Sat 98 12/16/18 04:21 ABG O2 Saturation 94.7 % (95.0-99.0) L 12/16/18 17:40 ABG O2 Content 17.0 (0.0-44) 12/16/18 17:40 POC ABG Base Excess 1 ((-2) - (+3)mmol/L) 12/16/18 04:21 ABG Base Excess 1.9 mmol/L (-2.0-3.0) 12/16/18 17:40 ABG Hemoglobin 13.0 gm/dl (14.0-18.0) L 12/16/18 17:40 ABG Carboxyhemoglobin 1.5 % (0.0-5.0) 12/16/18 17:40 ABG Methemoglobin 0.4 % (0.0-1.5) 12/16/18 17:40 Oxyhemoglobin 92.8 % (95.0-99.0) L 12/16/18 17:40 FiO2 40 % 12/16/18 17:40 Sodium 137 mmol/L (137-145) 12/17/18 04:40 Potassium 3.8 mmol/L (3.6-5.0) 12/17/18 04:40 Chloride 98.9 mmol/L (98-107) 12/17/18 04:40 Carbon Dioxide 25 mmol/L (22-30) 12/17/18 04:40 Anion Gap 17 mmol/L 12/17/18 04:40 BUN 15 mg/dL (9-20) 12/17/18 04:40 Creatinine 0.6 mg/dL (0.8-1.5) L 12/17/18 04:40 Estimated GFR > 60 ml/min 12/17/18 04:40 BUN/Creatinine Ratio 25 % 12/17/18 04:40 Glucose 119 mg/dL (75-100) H 12/17/18 04:40 POC Glucose 102 (70-105) 12/17/18 18:00 Calcium 8.7 mg/dL (8.4-10.2) 12/17/18 04:40 Magnesium 2.20 mg/dL (1.7-2.3) 12/13/18 01:02 Ammonia 35.0 umol/L (25-60) 12/13/18 10:12 Total Creatine Kinase 176 units/L (55-170) H 12/17/18 05:06 Urine Color Yellow (Yellow) 12/13/18 Unknown Urine Turbidity Clear (Clear) 12/13/18 Unknown Urine pH 5.0 (5.0-7.0) 12/13/18 Unknown Ur Specific [place] 1.016 (1.003-1.030) 12/13/18 Unknown Urine Protein 30 mg/dl mg/dL (Negative) 12/13/18 Unknown Urine Glucose (UA) Neg mg/dL (Negative) 12/13/18 Unknown Urine Ketones Neg mg/dL (Negative) 12/13/18 Unknown Urine Blood Neg (Negative) 12/13/18 Unknown Urine Nitrite Neg (Negative) 12/13/18 Unknown Urine Bilirubin Neg (Negative) 12/13/18 Unknown Urine Urobilinogen < 2.0 mg/dL (<2.0) 12/13/18 Unknown Ur Leukocyte Esterase Sm (Negative) 12/13/18 Unknown Urine WBC (Auto) 24.0 /HPF (0.0-6.0) H 12/13/18 Unknown Urine RBC (Auto) 6.0 /HPF (0.0-6.0) 12/13/18 Unknown U Epithel Cells (Auto) 1.0 /HPF (0-13.0) 12/13/18 Unknown Salicylates < 0.3 mg/dL (2.8-20.0) L 12/13/18 01:02 Urine Opiates Screen Presumptive negative 12/13/18 Unknown Urine Methadone Screen Presumptive negative 12/13/18 Unknown Acetaminophen < 5.0 ug/mL (10.0-30.0) L 12/13/18 01:02 Ur Barbiturates Screen Presumptive negative 12/13/18 Unknown Ur Phencyclidine Scrn Presumptive negative 12/13/18 Unknown Ur Amphetamines Screen Presumptive negative 12/13/18 Unknown U Benzodiazepines Scrn Presumptive negative 12/13/18 Unknown Urine Cocaine Screen Presumptive negative 12/13/18 Unknown U Marijuana (THC) Screen Presumptive negative 12/13/18 Unknown Drugs of Abuse Note Disclamer 12/13/18 Unknown Plasma/Serum Alcohol < 0.01 % (0-0.07) 12/13/18 01:02 Active Medications - Current Medications Current Medications: Generic Name Dose Route Start Last Admin Trade Name Freq PRN Reason Stop Dose Admin Amlodipine Besylate 10 mg 12/13/18 10:00 12/18/18 09:30 Norvasc PO 10 mg QDAY KOTA Administration Lipase/Protease/Amylase 1 each 12/14/18 14:[address] 10,500 Unit FEEDTUBE PRN PRN For Clogged Feeding Tube Aspirin 81 mg 12/15/18 10:00 12/18/18 09:30 Baby Aspirin PO 81 mg QDAY KOTA Administration Famotidine 20 mg 12/18/18 10:00 12/18/18 09:29 Pepcid PO 20 mg BID KOTA Administration Folic Acid 1 mg 12/13/18 10:00 12/18/18 09:29 Folvite PO 1 mg QDAY KOTA Administration Heparin Sodium (Porcine) 5,000 unit 12/15/18 10:00 12/18/18 09:30 Heparin SUB-Q 5,000 unit Q12HR KOTA Administration Hydralazine HCl 10 mg 12/13/18 17:28 12/14/18 13:32 Apresoline IV 10 mg Q6HR PRN Administration High blood pressure Hydrophilic Ointment 1 applic 12/13/18 04:07 Vaseline Lip Therapy TP Q2HR PRN Dry Lips Levetiracetam 500 mg 12/16/18 10:00 12/18/18 09:29 Keppra PO 500 mg BID KOTA Administration Lorazepam 2 mg 12/13/18 00:52 12/18/18 06:03 Ativan IV 2 mg Q1HR PRN Administration CIWA-Ar 8-15 Lorazepam 4 mg 12/13/18 00:52 12/15/18 20:35 Ativan IV 4 mg Q1HR PRN Administration CIWA-Ar 16-25 Lorazepam 4 mg 12/13/18 00:52 12/13/18 02:26 Ativan IV 4 mg Q15MIN PRN Administration CIWA-Ar >25 Lorazepam 2 mg 12/13/18 04:07 Ativan IV Q10MIN PRN Agitation Multi-Ingred Cream/Lotion/Oil/Oint 1 applic 12/13/18 04:07 Artificial Tears Ophth Oint OU Q4HR PRN Dry Eye(s) Pravastatin Sodium 10 mg 12/13/18 22:00 12/17/18 21:03 Pravachol PO 10 mg QHS KOTA Administration Quetiapine Fumarate 300 mg 12/15/18 22:00 12/18/18 09:29 Seroquel PO 300 mg BID KOTA Administration Scopolamine 1 each 12/16/18 19:00 12/16/18 18:50 Transderm-Scop TD 1 each Q72H KOTA Administration Simple Syrup 15 ml 12/14/18 14:10 Simple Syrup FEEDTUBE PRN PRN Hypoglycemia Simple Syrup 30 ml 12/14/18 14:10 Simple Syrup FEEDTUBE PRN PRN Hypoglycemia Sodium Bicarbonate 325 mg 12/14/18 14:10 Sodium Bicarbonate FEEDTUBE PRN PRN For Clogged Feeding Tube Sodium Chloride 10 ml 12/13/18 10:00 12/18/18 09:30 Sodium Chloride Flush Syringe 10 Ml IV 10 ml BID KOTA Administration Sodium Chloride 10 ml 12/13/18 08:30 Sodium Chloride Flush Syringe 10 Ml IV PRN PRN LINE FLUSH Thiamine HCl 100 mg 12/13/18 10:00 12/18/18 09:29 Vitamin B-1 PO 100 mg QDAY KOTA Administration Nutrition/Malnutrition Assess - Dietary Evaluation Nutrition/Malnutrition Findings: Nutrition Notes Start: 12/14/18 10:20 Freq: Status: Active Protocol: Document 12/18/18 09:41 LM (Rec: 12/18/18 09:56 LM [id number]) Nutrition Notes Initial or Follow up Reassessment Other Pertinent Diagnosis ETOH dependence, Seizure disorder, acute encephalopathy , Rhabdomyolysis Current Diet Vital AF at 75 ml/hr Labs/Tests No new labs Pertinent Medications reviewed Height 6 ft 1 in Weight 72 kg [place] Body Weight (kg) 83.63 BMI 20.9 Subjective/Other Information Vital AF running at 75 ml/hr. Pt extubated 12/16 Pt has dobhoff Burn Absent Trauma Absent Minimum of two criteria No physical signs of malnutrition #1 Nutrition Diagnosis Inadequate oral intake Diagnosis Progress(for reassessment Continues documentation) Is patient on ventilator? No Is Patient Ambulatory and/or Out of Bed No REE-([facility]-confined to bed) 1876.032 Kcal/Kg value to use for calculation 31 Approximate Energy Requirements Using 2232 kcal/Kg Calculation Used for Recommendations Kcal/kg Additional Notes Protein: 72-86g (1-1.2 g/kg) Fluid: 1 ml/kcal Nutrition Intervention Change Diet Order: TF
[2018-12-18] MEDS ORDERED: SIMPLE SYRUP FEEDTUBE PRN ×2 (10:42)
[2018-12-18] MEDS ORDERED: PANCREAZE DR 10,500 UNIT FEEDTUBE PRN (10:42)
[2018-12-18] MEDS ORDERED: SODIUM BICARBONATE FEEDTUBE PRN (10:42)
--- NOTE | 2018-12-18 11:27 | Progress Note ---
Assessment and Plan Acute hypoxic respiratory failure on MVS Status epilepticus Acute metabolic encephalopathy due to postictal state Alcohol abuse/dependence SIRS without organ dysfunction Acute Cystitis Hypertensive urgency Moderate malnutrition Rhabdomylsis - continue BIPAP qhs and prn in daytime for SOB - continue Seroquel at 300 mg bid for delirium and to spare IV sedatives - Continue CIWA protocol - continue GI & VTE prophylaxis - ST evaluation and advance diet as tolerated - continue aspiration precautions - Supplemental oxygen wean for O2 sat's > 90% - continue bronchodilators with pulmonary hygiene per RT - Mobility protocols for pressure ulcer prevention - continue chronic home medications - continue accuchecks with glycemic control per SSI for target blood glucose 140-180mg/dL - Avoid hypoglycemia - follow clinically off AB's - Continue Keppra and other home meds - Monitor and correct electrolytes - Counselling on substance abuse and medical therapy adherence once he is extubated - continue other care per attending / other absence management consultant's ... re-evaluate in am & prn CONDITION: FAIR PROGNOSIS: GUARDED CODE STATUS: FULL CODE Subjective Date of service: 12/18/18 Principal diagnosis: Ac. hypoxic resp failure; Status epilepticus; Ac. Encephalopathy Interval history: Patient is seen today for: Acute hypoxic respiratory failure on MVS; Status epilepticus; Acute metabolic encephalopathy due to postictal state; Alcohol abuse/dependence; SIRS without organ dysfunction; Acute Cystitis; Hypertensive urgency; Moderate malnutrition; Rhabdomylsis Seen and examined at bedside; 24hour events reviewed; nursing and respiratory care staff consulted; no adverse overnight events reported to me; resting peacefully in bed; no new issues overnight; no emesis or overt aspiration; remains on supplemental oxygen Objective Vital Signs - 12hr 12/18/18 12/18/18 12/18/18 00:00 00:05 01:00 Temperature 99.6 F Pulse Rate 100 H 96 H 87 Pulse Rate [ 95 H From Monitor] Respiratory 24 27 H 31 H Rate Blood Pressure 113/68 113/68 130/80 O2 Sat by Pulse 96 98 98 Oximetry 12/18/18 12/18/18 12/18/18 01:30 02:00 03:00 Temperature Pulse Rate 87 88 81 Pulse Rate [ From Monitor] Respiratory 27 H 13 26 H Rate Blood Pressure 130/80 106/76 134/85 O2 Sat by Pulse 100 100 Oximetry 12/18/18 12/18/18 12/18/18 04:00 04:01 04:39 Temperature 97.9 F Pulse Rate 93 H 85 Pulse Rate [ 93 H From Monitor] Respiratory 17 17 26 H Rate Blood Pressure 134/85 O2 Sat by Pulse 97 100 100 Oximetry 12/18/18 12/18/18 12/18/18 05:00 06:01 07:00 Temperature Pulse Rate 86 78 82 Pulse Rate [ From Monitor] Respiratory 25 H 18 23 Rate Blood Pressure 119/78 129/87 129/90 O2 Sat by Pulse 100 100 100 Oximetry 12/18/18 12/18/18 12/18/18 08:00 09:00 09:30 Temperature 99.5 F Pulse Rate 82 82 77 Pulse Rate [ 79 From Monitor] Respiratory 20 22 Rate Blood Pressure 132/82 136/76 136/76 O2 Sat by Pulse 100 100 Oximetry 12/18/18 11:08 Temperature Pulse Rate Pulse Rate [ From Monitor] Respiratory Rate Blood Pressure O2 Sat by Pulse 100 Oximetry Constitutional: no acute distress, asleep, other (elderly looking thin AAM, normocephalic and atraumatic with mildly increased resp effort at rest on MVS) Eyes: non-icteric ENT: oropharynx dry, other (extubated) Neck: supple, no lymphadenopathy, no JVD Effort: mildly labored Ascultation: Bilateral: diminished breath sounds, rhonchi Percussion: Bilateral: not dull Cardiovascular: regular rate and rhythm, other (Tachycardia, S1,S2, no murmurs, gallops or rubs) Gastrointestinal: normoactive bowel sounds, soft, non-tender, non-distended Integumentary: normal Extremities: no cyanosis, no edema, pulses normal, no ischemia or petechiae Neurologic: non-focal exam (grossly), pupils equal and round, CN II-XII normal, motor strength normal and Psychiatric: mood appropriate, affect normal CBC and BMP: 12/17/18 04:40 12/17/18 04:40 ABG, PT/INR, D-dimer: ABG POC ABG pH 7.490 (7.35-7.45) H 12/16/18 04:21 ABG pH 7.462 pH Units (7.350-7.450) H 12/16/18 17:40 POC ABG pCO2 32.3 (35-45) L 12/16/18 04:21 ABG pCO2 36.4 mm Hg 12/16/18 17:40 POC ABG pO2 98 (80-105) 12/16/18 04:21 ABG pO2 67.7 mm Hg (80.0-90.0) L 12/16/18 17:40 POC ABG HCO3 24.6 (22-26 mml/L) 12/16/18 04:21 POC ABG Total CO2 26 (23-27mmol/L) 12/16/18 04:21 POC ABG O2 Sat 98 12/16/18 04:21 ABG O2 Saturation 94.7 % (95.0-99.0) L 12/16/18 17:40 Abnormal lab findings: Abnormal Labs 12/12/18 12/12/18 12/13/18 23:45 23:45 01:02 WBC 4.4 L RBC 3.56 L Hct MCV 104 H MCH 34 H MCHC [place] % (Auto) [place] # POC ABG pH ABG pH POC ABG pCO2 POC ABG pO2 ABG pO2 ABG O2 Saturation ABG Hemoglobin Oxyhemoglobin Sodium BUN Creatinine 0.6 L Glucose 120 H POC Glucose Total Creatine Kinase 447 H Urine WBC (Auto) Salicylates Acetaminophen 12/13/18 12/13/18 12/13/18 01:02 01:02 10:12 WBC RBC Hct MCV MCH MCHC [place] % (Auto) [place] # POC ABG pH ABG pH POC ABG pCO2 POC ABG pO2 ABG pO2 ABG O2 Saturation ABG Hemoglobin Oxyhemoglobin Sodium BUN Creatinine Glucose POC Glucose Total Creatine Kinase 935 H Urine WBC (Auto) Salicylates < 0.3 L Acetaminophen < 5.0 L 12/13/18 12/13/18 12/14/18 Unknown Unknown 04:21 WBC RBC 3.45 L Hct MCV 103 H MCH 35 H MCHC [place] % (Auto) 13.4 H [place] # 1.1 H POC ABG pH ABG pH POC ABG pCO2 POC ABG pO2 ABG pO2 219.0 H ABG O2 Saturation 99.3 H ABG Hemoglobin 12.7 L Oxyhemoglobin Sodium BUN Creatinine Glucose POC Glucose Total Creatine Kinase Urine WBC (Auto) 24.0 H Salicylates Acetaminophen 12/14/18 12/14/18 12/14/18 04:21 06:00 12:31 WBC RBC Hct MCV MCH MCHC [place] % (Auto) [place] # POC ABG pH 7.469 H ABG pH 7.457 H POC ABG pCO2 POC ABG pO2 116 H ABG pO2 100.8 H ABG O2 Saturation ABG Hemoglobin 12.5 L Oxyhemoglobin Sodium 136 L BUN 6 L Creatinine 0.5 L Glucose 126 H POC Glucose Total Creatine Kinase 619 H Urine WBC (Auto) Salicylates Acetaminophen 12/15/18 12/15/18 12/15/18 06:00 11:34 13:45 WBC RBC Hct MCV MCH MCHC [place] % (Auto) [place] # POC ABG pH ABG pH POC ABG pCO2 POC ABG pO2 ABG pO2 122.1 H ABG O2 Saturation ABG Hemoglobin 12.8 L 12.9 L Oxyhemoglobin Sodium BUN Creatinine Glucose POC Glucose 116 H Total Creatine Kinase Urine WBC (Auto) Salicylates Acetaminophen 12/16/18 12/16/18 12/16/18 04:21 12:30 17:40 WBC RBC Hct MCV MCH MCHC [place] % (Auto) [place] # POC ABG pH 7.490 H ABG pH 7.462 H POC ABG pCO2 32.3 L POC ABG pO2 ABG pO2 98.1 H 67.7 L ABG O2 Saturation 94.7 L ABG Hemoglobin 9.1 L 13.0 L Oxyhemoglobin 92.8 L Sodium BUN Creatinine Glucose POC Glucose Total Creatine Kinase Urine WBC (Auto) Salicylates Acetaminophen 12/17/18 12/17/18 12/17/18 04:40 04:40 05:06 WBC RBC 3.41 L Hct 34.9 L MCV 102 H MCH 36 H MCHC 35 H [place] % (Auto) [place] # POC ABG pH ABG pH POC ABG pCO2 POC ABG pO2 ABG pO2 ABG O2 Saturation ABG Hemoglobin Oxyhemoglobin Sodium BUN Creatinine 0.6 L Glucose 119 H POC Glucose Total Creatine Kinase 176 H Urine WBC (Auto) Salicylates Acetaminophen 12/17/18 11:57 WBC RBC Hct MCV MCH MCHC [place] % (Auto) [place] # POC ABG pH ABG pH POC ABG pCO2 POC ABG pO2 ABG pO2 ABG O2 Saturation ABG Hemoglobin Oxyhemoglobin Sodium BUN Creatinine Glucose POC Glucose 129 H Total Creatine Kinase Urine WBC (Auto) Salicylates Acetaminophen Allied health notes reviewed: nursing
[2018-12-18] MEDS: PRAVACHOL PO SCH (21:28)
[2018-12-19] MEDS ORDERED: DULCOLAX PR NR (09:00)
--- NOTE | 2018-12-19 09:29 | Progress Note ---
Assessment and Plan Patient resting on room air at this time. Sleeping no acute respiratory distress.O2 saturation 95%.Patient running low grade fever at times No Leukocytosis. - Patient Problems (1) Alcohol dependence Current Visit: Yes Status: Acute Plan to address problem: Management as per primary care. (2) Alcohol withdrawal delirium Current Visit: Yes Status: Acute Plan to address problem: Patient is on Lorazepam. Management as per primary care. (3) Altered mental status, unspecified Current Visit: Yes Status: Acute Plan to address problem: Patient resting better to day. Less agitation. (4) Seizure Current Visit: Yes Status: Acute Plan to address problem: Patient is on Keppra, Management as per primary care and neurology. (5) Infiltrate of lower lobe of right lung present on imaging study Current Visit: Yes Status: Acute Plan to address problem: Patient running low grade fever at times. No leukocytosis. If patient febrile continuously, consider antibiotics. Aspiration precautions. Continue S/C Heparin for DVT prophylaxis. Subjective Date of service: 12/19/18 Principal diagnosis: Ac. hypoxic resp failure; Status epilepticus; Ac. Encephalopathy Interval history: Patient resting on room air at this time. Sleeping no acute respiratory distress.O2 saturation 95%.Patient running low grade fever at times No Leukocytosis. Objective Vital Signs - 12hr 12/19/18 12/19/18 02:15 03:06 Temperature 98.4 F Pulse Rate 80 89 Respiratory 13 20 Rate Blood Pressure 136/87 O2 Sat by Pulse 98 98 Oximetry Constitutional: no acute distress, asleep Eyes: non-icteric ENT: oropharynx dry, other (extubated) Neck: supple, no lymphadenopathy, no JVD Effort: mildly labored Ascultation: Right: rhonchi, Bilateral: diminished breath sounds Percussion: Bilateral: not dull Cardiovascular: regular rate and rhythm, other (Tachycardia, S1,S2, no murmurs, gallops or rubs) Gastrointestinal: normoactive bowel sounds, soft, non-tender, non-distended Integumentary: normal Extremities: no cyanosis, no edema, pulses normal, no ischemia or petechiae Neurologic: non-focal exam (grossly), pupils equal and round, CN II-XII normal, motor strength normal and Psychiatric: mood appropriate, affect normal CBC and BMP: 12/17/18 04:40 12/17/18 04:40 ABG, PT/INR, D-dimer: ABG POC ABG pH 7.490 (7.35-7.45) H 12/16/18 04:21 ABG pH 7.462 pH Units (7.350-7.450) H 12/16/18 17:40 POC ABG pCO2 32.3 (35-45) L 12/16/18 04:21 ABG pCO2 36.4 mm Hg 12/16/18 17:40 POC ABG pO2 98 (80-105) 12/16/18 04:21 ABG pO2 67.7 mm Hg (80.0-90.0) L 12/16/18 17:40 POC ABG HCO3 24.6 (22-26 mml/L) 12/16/18 04:21 POC ABG Total CO2 26 (23-27mmol/L) 12/16/18 04:21 POC ABG O2 Sat 98 12/16/18 04:21 ABG O2 Saturation 94.7 % (95.0-99.0) L 12/16/18 17:40 Abnormal lab findings: Abnormal Labs 12/12/18 12/12/18 12/13/18 23:45 23:45 01:02 WBC 4.4 L RBC 3.56 L Hct MCV 104 H MCH 34 H MCHC [place] % (Auto) [place] # POC ABG pH ABG pH POC ABG pCO2 POC ABG pO2 ABG pO2 ABG O2 Saturation ABG Hemoglobin Oxyhemoglobin Sodium BUN Creatinine 0.6 L Glucose 120 H POC Glucose Total Creatine Kinase 447 H Urine WBC (Auto) Salicylates Acetaminophen 12/13/18 12/13/18 12/13/18 01:02 01:02 10:12 WBC RBC Hct MCV MCH MCHC [place] % (Auto) [place] # POC ABG pH ABG pH POC ABG pCO2 POC ABG pO2 ABG pO2 ABG O2 Saturation ABG Hemoglobin Oxyhemoglobin Sodium BUN Creatinine Glucose POC Glucose Total Creatine Kinase 935 H Urine WBC (Auto) Salicylates < 0.3 L Acetaminophen < 5.0 L 12/13/18 12/13/18 12/14/18 Unknown Unknown 04:21 WBC RBC 3.45 L Hct MCV 103 H MCH 35 H MCHC [place] % (Auto) 13.4 H [place] # 1.1 H POC ABG pH ABG pH POC ABG pCO2 POC ABG pO2 ABG pO2 219.0 H ABG O2 Saturation 99.3 H ABG Hemoglobin 12.7 L Oxyhemoglobin Sodium BUN Creatinine Glucose POC Glucose Total Creatine Kinase Urine WBC (Auto) 24.0 H Salicylates Acetaminophen 12/14/18 12/14/18 12/14/18 04:21 06:00 12:31 WBC RBC Hct MCV MCH MCHC [place] % (Auto) [place] # POC ABG pH 7.469 H ABG pH 7.457 H POC ABG pCO2 POC ABG pO2 116 H ABG pO2 100.8 H ABG O2 Saturation ABG Hemoglobin 12.5 L Oxyhemoglobin Sodium 136 L BUN 6 L Creatinine 0.5 L Glucose 126 H POC Glucose Total Creatine Kinase 619 H Urine WBC (Auto) Salicylates Acetaminophen 12/15/18 12/15/18 12/15/18 06:00 11:34 13:45 WBC RBC Hct MCV MCH MCHC [place] % (Auto) [place] # POC ABG pH ABG pH POC ABG pCO2 POC ABG pO2 ABG pO2 122.1 H ABG O2 Saturation ABG Hemoglobin 12.8 L 12.9 L Oxyhemoglobin Sodium BUN Creatinine Glucose POC Glucose 116 H Total Creatine Kinase Urine WBC (Auto) Salicylates Acetaminophen 12/16/18 12/16/18 12/16/18 04:21 12:30 17:40 WBC RBC Hct MCV MCH MCHC [place] % (Auto) [place] # POC ABG pH 7.490 H ABG pH 7.462 H POC ABG pCO2 32.3 L POC ABG pO2 ABG pO2 98.1 H 67.7 L ABG O2 Saturation 94.7 L ABG Hemoglobin 9.1 L 13.0 L Oxyhemoglobin 92.8 L Sodium BUN Creatinine Glucose POC Glucose Total Creatine Kinase Urine WBC (Auto) Salicylates Acetaminophen 12/17/18 12/17/18 12/17/18 04:40 04:40 05:06 WBC RBC 3.41 L Hct 34.9 L MCV 102 H MCH 36 H MCHC 35 H [place] % (Auto) [place] # POC ABG pH ABG pH POC ABG pCO2 POC ABG pO2 ABG pO2 ABG O2 Saturation ABG Hemoglobin Oxyhemoglobin Sodium BUN Creatinine 0.6 L Glucose 119 H POC Glucose Total Creatine Kinase 176 H Urine WBC (Auto) Salicylates Acetaminophen 12/17/18 12/18/1812/18/19 11:57 12:35 16:40 WBC RBC Hct MCV MCH MCHC [place] % (Auto) [place] # POC ABG pH ABG pH POC ABG pCO2 POC ABG pO2 ABG pO2 ABG O2 Saturation ABG Hemoglobin Oxyhemoglobin Sodium BUN Creatinine Glucose POC Glucose 129 H 114 H 114 H Total Creatine Kinase Urine WBC (Auto) Salicylates Acetaminophen 12/18/18 23:56 WBC RBC Hct MCV MCH MCHC [place] % (Auto) [place] # POC ABG pH ABG pH POC ABG pCO2 POC ABG pO2 ABG pO2 ABG O2 Saturation ABG Hemoglobin Oxyhemoglobin Sodium BUN Creatinine Glucose POC Glucose 110 H Total Creatine Kinase Urine WBC (Auto) Salicylates Acetaminophen Chest x-ray: report reviewed (Reported slight increase in airspace disease in right lower lung.), image reviewed Allied health notes reviewed: nursing
[2018-12-19] MEDS: HEPARIN SUB-Q SCH ×2 (09:33→21:34)
[2018-12-19] MEDS: VITAMIN B-1 PO SCH (09:33)
[2018-12-19] MEDS: KEPPRA PO SCH ×2 (09:33→21:30)
[2018-12-19] MEDS: FOLVITE PO SCH (09:33)
[2018-12-19] MEDS: PEPCID PO SCH ×2 (09:33→21:31)
[2018-12-19] MEDS: BABY ASPIRIN PO SCH (09:33)
[2018-12-19] MEDS: SODIUM CHLORIDE FLUSH SYRINGE 10 ML IV SCH ×2 (09:34→21:30)
[2018-12-19] MEDS ORDERED: MIRALAX 3350 PO PRN (10:00)
--- NOTE | 2018-12-19 13:53 | Progress Note ---
Assessment and Plan Assessment and plan: Patient is a 63-year-old man with history of alcohol abuse, Seizure disorder, per his children he is not compliant with his antiseizure meds. The patient is initially afebrile with reassuring vital signs. He follows commands. His physical exam is unremarkable. While in the emergency room, he had a convulsive event Thought to be secondary to possible seizure and symptoms of alcohol withdrawal In the emergency room, the patient is confused and agitated and require excessive sedation and finally patient was intubated. Patient labs reviewed and is unremarkable. CT brain is negative for acute finding. CT C- spine is negative for acute finding. In the ED the patient was loaded with keepra, during reevaluation patient had been progressively agitated. He received a total of 8 mg of Ativan, 5 mg of Haldol, is becoming increasingly agitated, pulling off his leads, and increasingly confused. Per ED doc " In my opinion, it is dangerous to continue sedating the patient, and he will therefore be intubated. He is emergency and administratively consented for intubation by myself, and intubated by the physician assistant manager" Patient was intubated for greater than 96 hrs and now extubated. He was extubated to BIPAP and now on NC. He was on restriants to prevent pulling and is now awaiting post extubation Swallow eval CT Head without contrast. No acute findings or interval change. Prominent bifrontal white matter hypoattenuation. KUB: Satisfactory placement of nasogastric tube. CT Cervical spine: Degenerative changes with no evidence of cervical fracture or subluxation. Status epilepticus- Resolved Acute hypoxic respiratory failure on MVS- now extubated Acute metabolic encephalopathy due to postictal state Alcohol abuse/dependence SIRS without organ dysfunction Acute Cystitis- Culture with no growth Hypertensive urgency Moderate malnutrition Rhabdomylsis-Improving Plan Continue supportive care Continue CIWA protocol Tolerating tube feed Aspiration precautions Urine culture was with no growth Continue Keppra iv and other home meds Abx IV Switch to PO once tolerating PO Monitor and correct electrolytes Counselling on compliance when more awake Wean off seroquel now that patient is extubated Resume home BP meds Discussed with Nursing staff at bedside Pressure ulcer prevention protocol inpace Iv Hydralazine DVT/GI prophy Patient is uninsured and unable to place him. History Interval history: Patient was seen and developed this morning, patient was alert but not oriented. Hospitalist Physical - Physical exam Narrative exam: Not in cardiopulmonary distress. The patient appeared well nourished and normally developed. Vital signs as documented. Head exam is unremarkable. No scleral icterus . Neck is without jugular venous distension, thyromegaly, or carotid bruits. Lungs are clear to auscultation. Cardiac exam reveals regular rate and Rhythm. Abdominal exam reveals normal bowel sounds. Extremities are nonedematous and both femoral and pedal pulses are normal. 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 - Constitutional Vitals: Temp Pulse Resp BP Pulse Ox 99.2 F 85 18 118/76 97 12/19/18 13:18 12/19/18 13:18 12/19/18 13:18 12/19/18 13:18 12/19/18 13:18 General appearance: Present: no acute distress, well-nourished Results - Labs CBC & Chem 7: 12/17/18 04:40 12/17/18 04:40 Labs: Laboratory Last Values WBC 9.0 K/mm3 (4.5-11.0) 12/17/18 04:40 RBC 3.41 M/mm3 (3.65-5.03) L 12/17/18 04:40 Hgb 12.1 gm/dl (11.8-15.2) 12/17/18 04:40 Hct 34.9 % (35.5-45.6) L 12/17/18 04:40 MCV 102 fl (84-94) H 12/17/18 04:40 MCH 36 pg (28-32) H 12/17/18 04:40 MCHC 35 % (32-34) H 12/17/18 04:40 RDW 13.6 % (13.2-15.2) 12/17/18 04:40 Plt Count 279 K/mm3 (140-440) 12/17/18 04:40 Lymph % (Auto) 18.5 % (13.4-35.0) 12/14/18 04:21 [place] % (Auto) 13.4 % (0.0-7.3) H 12/14/18 04:21 Eos % (Auto) 0.4 % (0.0-4.3) 12/14/18 04:21 Baso % (Auto) 0.8 % (0.0-1.8) 12/14/18 04:21 Lymph # 1.5 K/mm3 (1.2-5.4) 12/14/18 04:21 [place] # 1.1 K/mm3 (0.0-0.8) H 12/14/18 04:21 Eos # 0.0 K/mm3 (0.0-0.4) 12/14/18 04:21 Baso # 0.1 K/mm3 (0.0-0.1) 12/14/18 04:21 Seg Neutrophils % 66.9 % (40.0-70.0) 12/14/18 04:21 Seg Neutrophils # 5.5 K/mm3 (1.8-7.7) 12/14/18 04:21 POC ABG pH 7.490 (7.35-7.45) H 12/16/18 04:21 ABG pH 7.462 pH Units (7.350-7.450) H 12/16/18 17:40 POC ABG pCO2 32.3 (35-45) L 12/16/18 04:21 ABG pCO2 36.4 mm Hg 12/16/18 17:40 POC ABG pO2 98 (80-105) 12/16/18 04:21 ABG pO2 67.7 mm Hg (80.0-90.0) L 12/16/18 17:40 POC ABG HCO3 24.6 (22-26 mml/L) 12/16/18 04:21 ABG HCO3 25.4 mmol/L (20.0-26.0) 12/16/18 17:40 POC ABG Total CO2 26 (23-27mmol/L) 12/16/18 04:21 POC ABG O2 Sat 98 12/16/18 04:21 ABG O2 Saturation 94.7 % (95.0-99.0) L 12/16/18 17:40 ABG O2 Content 17.0 (0.0-44) 12/16/18 17:40 POC ABG Base Excess 1 ((-2) - (+3)mmol/L) 12/16/18 04:21 ABG Base Excess 1.9 mmol/L (-2.0-3.0) 12/16/18 17:40 ABG Hemoglobin 13.0 gm/dl (14.0-18.0) L 12/16/18 17:40 ABG Carboxyhemoglobin 1.5 % (0.0-5.0) 12/16/18 17:40 ABG Methemoglobin 0.4 % (0.0-1.5) 12/16/18 17:40 Oxyhemoglobin 92.8 % (95.0-99.0) L 12/16/18 17:40 FiO2 40 % 12/16/18 17:40 Sodium 137 mmol/L (137-145) 12/17/18 04:40 Potassium 3.8 mmol/L (3.6-5.0) 12/17/18 04:40 Chloride 98.9 mmol/L (98-107) 12/17/18 04:40 Carbon Dioxide 25 mmol/L (22-30) 12/17/18 04:40 Anion Gap 17 mmol/L 12/17/18 04:40 BUN 15 mg/dL (9-20) 12/17/18 04:40 Creatinine 0.6 mg/dL (0.8-1.5) L 12/17/18 04:40 Estimated GFR > 60 ml/min 12/17/18 04:40 BUN/Creatinine Ratio 25 % 12/17/18 04:40 Glucose 119 mg/dL (75-100) H 12/17/18 04:40 POC Glucose 104 (70-105) 12/19/18 06:13 Calcium 8.7 mg/dL (8.4-10.2) 12/17/18 04:40 Magnesium 2.20 mg/dL (1.7-2.3) 12/13/18 01:02 Ammonia 35.0 umol/L (25-60) 12/13/18 10:12 Total Creatine Kinase 176 units/L (55-170) H 12/17/18 05:06 Urine Color Yellow (Yellow) 12/13/18 Unknown Urine Turbidity Clear (Clear) 12/13/18 Unknown Urine pH 5.0 (5.0-7.0) 12/13/18 Unknown Ur Specific [place] 1.016 (1.003-1.030) 12/13/18 Unknown Urine Protein 30 mg/dl mg/dL (Negative) 12/13/18 Unknown Urine Glucose (UA) Neg mg/dL (Negative) 12/13/18 Unknown Urine Ketones Neg mg/dL (Negative) 12/13/18 Unknown Urine Blood Neg (Negative) 12/13/18 Unknown Urine Nitrite Neg (Negative) 12/13/18 Unknown Urine Bilirubin Neg (Negative) 12/13/18 Unknown Urine Urobilinogen < 2.0 mg/dL (<2.0) 12/13/18 Unknown Ur Leukocyte Esterase Sm (Negative) 12/13/18 Unknown Urine WBC (Auto) 24.0 /HPF (0.0-6.0) H 12/13/18 Unknown Urine RBC (Auto) 6.0 /HPF (0.0-6.0) 12/13/18 Unknown U Epithel Cells (Auto) 1.0 /HPF (0-13.0) 12/13/18 Unknown Salicylates < 0.3 mg/dL (2.8-20.0) L 12/13/18 01:02 Urine Opiates Screen Presumptive negative 12/13/18 Unknown Urine Methadone Screen Presumptive negative 12/13/18 Unknown Acetaminophen < 5.0 ug/mL (10.0-30.0) L 12/13/18 01:02 Ur Barbiturates Screen Presumptive negative 12/13/18 Unknown Ur Phencyclidine Scrn Presumptive negative 12/13/18 Unknown Ur Amphetamines Screen Presumptive negative 12/13/18 Unknown U Benzodiazepines Scrn Presumptive negative 12/13/18 Unknown Urine Cocaine Screen Presumptive negative 12/13/18 Unknown U Marijuana (THC) Screen Presumptive negative 12/13/18 Unknown Drugs of Abuse Note Disclamer 12/13/18 Unknown Plasma/Serum Alcohol < 0.01 % (0-0.07) 12/13/18 01:02 Active Medications - Current Medications Current Medications: Generic Name Dose Route Start Last Admin Trade Name Freq PRN Reason Stop Dose Admin Amlodipine Besylate 10 mg 12/13/18 10:00 12/19/18 09:33 Norvasc PO 10 mg QDAY KOTA Administration Lipase/Protease/Amylase 1 each 12/14/18 14:[address] 10,500 Unit FEEDTUBE PRN PRN For Clogged Feeding Tube Aspirin 81 mg 12/15/18 10:00 12/19/18 09:33 Baby Aspirin PO 81 mg QDAY KOTA Administration Famotidine 20 mg 12/18/18 10:00 12/19/18 09:33 Pepcid PO 20 mg BID KOTA Administration Folic Acid 1 mg 12/13/18 10:00 12/19/18 09:33 Folvite PO 1 mg QDAY KOTA Administration Heparin Sodium (Porcine) 5,000 unit 12/15/18 10:00 12/19/18 09:33 Heparin SUB-Q 5,000 unit Q12HR KOTA Administration Hydralazine HCl 10 mg 12/13/18 17:28 12/14/18 13:32 Apresoline IV 10 mg Q6HR PRN Administration High blood pressure Hydrophilic Ointment 1 applic 12/13/18 04:07 Vaseline Lip Therapy TP Q2HR PRN Dry Lips Levetiracetam 500 mg 12/16/18 10:00 12/19/18 09:33 Keppra PO 500 mg BID KOTA Administration Lorazepam 2 mg 12/13/18 00:52 12/18/18 19:20 Ativan IV 2 mg Q1HR PRN Administration CIWA-Ar 8-15 Lorazepam 4 mg 12/13/18 00:52 12/15/18 20:35 Ativan IV 4 mg Q1HR PRN Administration CIWA-Ar 16-25 Lorazepam 4 mg 12/13/18 00:52 12/13/18 02:26 Ativan IV 4 mg Q15MIN PRN Administration CIWA-Ar >25 Lorazepam 2 mg 12/13/18 04:07 Ativan IV Q10MIN PRN Agitation Multi-Ingred Cream/Lotion/Oil/Oint 1 applic 12/13/18 04:07 Artificial Tears Ophth Oint OU Q4HR PRN Dry Eye(s) Polyethylene Glycol 17 gm 12/19/18 10:00 Miralax 3350 PO QDAY PRN Constipation Pravastatin Sodium 10 mg 12/13/18 22:00 12/18/18 21:28 Pravachol PO 10 mg QHS KOTA Administration Quetiapine Fumarate 300 mg 12/15/18 22:00 12/19/18 09:33 Seroquel PO 300 mg BID KOTA Administration Scopolamine 1 each 12/16/18 19:00 12/16/18 18:50 Transderm-Scop TD 1 each Q72H KOTA Administration Simple Syrup 15 ml 12/14/18 14:10 Simple Syrup FEEDTUBE PRN PRN Hypoglycemia Simple Syrup 30 ml 12/14/18 14:10 Simple Syrup FEEDTUBE PRN PRN Hypoglycemia Sodium Bicarbonate 325 mg 12/14/18 14:10 Sodium Bicarbonate FEEDTUBE PRN PRN For Clogged Feeding Tube Sodium Chloride 10 ml 12/13/18 10:00 12/19/18 09:34 Sodium Chloride Flush Syringe 10 Ml IV 10 ml BID KOTA Administration Sodium Chloride 10 ml 12/13/18 08:30 Sodium Chloride Flush Syringe 10 Ml IV PRN PRN LINE FLUSH Thiamine HCl 100 mg 12/13/18 10:00 12/19/18 09:33 Vitamin B-1 PO 100 mg QDAY KOTA Administration Nutrition/Malnutrition Assess - Dietary Evaluation Nutrition/Malnutrition Findings: Nutrition Notes Start: 12/14/18 10:20 Freq: Status: Active Protocol: Document 12/18/18 09:41 LM (Rec: 12/18/18 09:56 LM [id number]) Nutrition Notes Initial or Follow up Reassessment Other Pertinent Diagnosis ETOH dependence, Seizure disorder, acute encephalopathy , Rhabdomyolysis Current Diet Vital AF at 75 ml/hr Labs/Tests No new labs Pertinent Medications reviewed Height 6 ft 1 in Weight 72 kg [place] Body Weight (kg) 83.63 BMI 20.9 Subjective/Other Information Vital AF running at 75 ml/hr. Pt extubated 12/16 Pt has dobhoff Burn Absent Trauma Absent Minimum of two criteria No physical signs of malnutrition #1 Nutrition Diagnosis Inadequate oral intake Diagnosis Progress(for reassessment Continues documentation) Is patient on ventilator? No Is Patient Ambulatory and/or Out of Bed No REE-([facility]-confined to bed) 1876.032 Kcal/Kg value to use for calculation 31 Approximate Energy Requirements Using 2232 kcal/Kg Calculation Used for Recommendations Kcal/kg Additional Notes Protein: 72-86g (1-1.2 g/kg) Fluid: 1 ml/kcal Nutrition Intervention Change Diet Order: TF Nutrition Support: Change to Osmolite 1.5 at 60 ml/hr Flush 175 ml q4hr Kcal 2,160 Protein (gm) 90 Fluid (mL) 1,097 Goal #1 TF tolerance Goal #2 Meet at least 75% of energy and protein needs Anticipated Discharge Needs: unable to determine at this time Follow-Up By: 12/20/18 Additional Comments F/U for new TF/tolerance
[2018-12-19] MEDS: TRANSDERM-SCOP TD SCH (18:06)
[2018-12-19] MEDS: PRAVACHOL PO SCH (21:31)
[2018-12-20] MEDS: KEPPRA PO SCH ×2 (09:44→21:45)
[2018-12-20] MEDS: FOLVITE PO SCH (09:44)
[2018-12-20] MEDS: VITAMIN B-1 PO SCH (09:44)
[2018-12-20] MEDS: BABY ASPIRIN PO SCH (09:44)
[2018-12-20] MEDS: SODIUM CHLORIDE FLUSH SYRINGE 10 ML IV SCH ×2 (09:45→21:46)
[2018-12-20] MEDS: PEPCID PO SCH ×2 (09:45→21:45)
[2018-12-20] MEDS: HEPARIN SUB-Q SCH ×2 (09:46→21:48)
--- NOTE | 2018-12-20 13:09 | Progress Note ---
Assessment and Plan Assessment and plan: Patient is a 63-year-old man with history of alcohol abuse, Seizure disorder, per his children he is not compliant with his antiseizure meds. The patient is initially afebrile with reassuring vital signs. He follows commands. His physical exam is unremarkable. While in the emergency room, he had a convulsive event Thought to be secondary to possible seizure and symptoms of alcohol withdrawal In the emergency room, the patient is confused and agitated and require excessive sedation and finally patient was intubated. Patient labs reviewed and is unremarkable. CT brain is negative for acute finding. CT C- spine is negative for acute finding. In the ED the patient was loaded with keepra, during reevaluation patient had been progressively agitated. He received a total of 8 mg of Ativan, 5 mg of Haldol, is becoming increasingly agitated, pulling off his leads, and increasingly confused. Per ED doc " In my opinion, it is dangerous to continue sedating the patient, and he will therefore be intubated. He is emergency and administratively consented for intubation by myself, and intubated by the physician content assistant" Patient was intubated for greater than 96 hrs and now extubated. He was extubated to BIPAP and now on NC. He was on restriants to prevent pulling and is now awaiting post extubation Swallow eval CT Head without contrast. No acute findings or interval change. Prominent bifrontal white matter hypoattenuation. KUB: Satisfactory placement of nasogastric tube. CT Cervical spine: Degenerative changes with no evidence of cervical fracture or subluxation. Status epilepticus- Resolved Acute hypoxic respiratory failure on MVS- now extubated Acute metabolic encephalopathy due to postictal state Alcohol abuse/dependence SIRS without organ dysfunction Acute Cystitis- Culture with no growth Hypertensive urgency Moderate malnutrition Rhabdomylsis-Improving Plan Continue supportive care Continue CIWA protocol Tolerating tube feed Aspiration precautions Urine culture was with no growth Continue Keppra iv and other home meds Abx IV Switch to PO once tolerating PO Monitor and correct electrolytes Counselling on compliance when more awake Wean off seroquel now that patient is extubated Resume home BP meds Discussed with Nursing staff at bedside Pressure ulcer prevention protocol inpace Iv Hydralazine DVT/GI prophy Patient is more alert and oriented. Will do PT and consider to discharge. History Interval history: Patient was seen and evaluated this morning, patient was more alert and oriented this morning. Hospitalist Physical - Physical exam Narrative exam: Not in cardiopulmonary distress. The patient appeared well nourished and normally developed. Vital signs as documented. Head exam is unremarkable. No scleral icterus . Neck is without jugular venous distension, thyromegaly, or carotid bruits. Lungs are clear to auscultation. Cardiac exam reveals regular rate and Rhythm. Abdominal exam reveals normal bowel sounds. Extremities are nonedematous and both femoral and pedal pulses are normal. RESTORATION SILVERSMITH: Alert and oriented x3. - Constitutional Vitals: Temp Pulse Resp BP Pulse Ox 98.2 F 71 20 150/82 88 12/20/18 07:18 12/20/18 07:18 12/20/18 10:00 12/20/18 07:18 12/20/18 10:00 General appearance: Present: no acute distress, well-nourished Results - Labs CBC & Chem 7: 12/17/18 04:40 12/17/18 04:40 Labs: Laboratory Last Values WBC 9.0 K/mm3 (4.5-11.0) 12/17/18 04:40 RBC 3.41 M/mm3 (3.65-5.03) L 12/17/18 04:40 Hgb 12.1 gm/dl (11.8-15.2) 12/17/18 04:40 Hct 34.9 % (35.5-45.6) L 12/17/18 04:40 MCV 102 fl (84-94) H 12/17/18 04:40 MCH 36 pg (28-32) H 12/17/18 04:40 MCHC 35 % (32-34) H 12/17/18 04:40 RDW 13.6 % (13.2-15.2) 12/17/18 04:40 Plt Count 279 K/mm3 (140-440) 12/17/18 04:40 Lymph % (Auto) 18.5 % (13.4-35.0) 12/14/18 04:21 [place] % (Auto) 13.4 % (0.0-7.3) H 12/14/18 04:21 Eos % (Auto) 0.4 % (0.0-4.3) 12/14/18 04:21 Baso % (Auto) 0.8 % (0.0-1.8) 12/14/18 04:21 Lymph # 1.5 K/mm3 (1.2-5.4) 12/14/18 04:21 [place] # 1.1 K/mm3 (0.0-0.8) H 12/14/18 04:21 Eos # 0.0 K/mm3 (0.0-0.4) 12/14/18 04:21 Baso # 0.1 K/mm3 (0.0-0.1) 12/14/18 04:21 Seg Neutrophils % 66.9 % (40.0-70.0) 12/14/18 04:21 Seg Neutrophils # 5.5 K/mm3 (1.8-7.7) 12/14/18 04:21 POC ABG pH 7.490 (7.35-7.45) H 12/16/18 04:21 ABG pH 7.462 pH Units (7.350-7.450) H 12/16/18 17:40 POC ABG pCO2 32.3 (35-45) L 12/16/18 04:21 ABG pCO2 36.4 mm Hg 12/16/18 17:40 POC ABG pO2 98 (80-105) 12/16/18 04:21 ABG pO2 67.7 mm Hg (80.0-90.0) L 12/16/18 17:40 POC ABG HCO3 24.6 (22-26 mml/L) 12/16/18 04:21 ABG HCO3 25.4 mmol/L (20.0-26.0) 12/16/18 17:40 POC ABG Total CO2 26 (23-27mmol/L) 12/16/18 04:21 POC ABG O2 Sat 98 12/16/18 04:21 ABG O2 Saturation 94.7 % (95.0-99.0) L 12/16/18 17:40 ABG O2 Content 17.0 (0.0-44) 12/16/18 17:40 POC ABG Base Excess 1 ((-2) - (+3)mmol/L) 12/16/18 04:21 ABG Base Excess 1.9 mmol/L (-2.0-3.0) 12/16/18 17:40 ABG Hemoglobin 13.0 gm/dl (14.0-18.0) L 12/16/18 17:40 ABG Carboxyhemoglobin 1.5 % (0.0-5.0) 12/16/18 17:40 ABG Methemoglobin 0.4 % (0.0-1.5) 12/16/18 17:40 Oxyhemoglobin 92.8 % (95.0-99.0) L 12/16/18 17:40 FiO2 40 % 12/16/18 17:40 Sodium 137 mmol/L (137-145) 12/17/18 04:40 Potassium 3.8 mmol/L (3.6-5.0) 12/17/18 04:40 Chloride 98.9 mmol/L (98-107) 12/17/18 04:40 Carbon Dioxide 25 mmol/L (22-30) 12/17/18 04:40 Anion Gap 17 mmol/L 12/17/18 04:40 BUN 15 mg/dL (9-20) 12/17/18 04:40 Creatinine 0.6 mg/dL (0.8-1.5) L 12/17/18 04:40 Estimated GFR > 60 ml/min 12/17/18 04:40 BUN/Creatinine Ratio 25 % 12/17/18 04:40 Glucose 119 mg/dL (75-100) H 12/17/18 04:40 POC Glucose 104 (70-105) 12/19/18 06:13 Calcium 8.7 mg/dL (8.4-10.2) 12/17/18 04:40 Magnesium 2.20 mg/dL (1.7-2.3) 12/13/18 01:02 Ammonia 35.0 umol/L (25-60) 12/13/18 10:12 Total Creatine Kinase 176 units/L (55-170) H 12/17/18 05:06 Urine Color Yellow (Yellow) 12/13/18 Unknown Urine Turbidity Clear (Clear) 12/13/18 Unknown Urine pH 5.0 (5.0-7.0) 12/13/18 Unknown Ur Specific [place] 1.016 (1.003-1.030) 12/13/18 Unknown Urine Protein 30 mg/dl mg/dL (Negative) 12/13/18 Unknown Urine Glucose (UA) Neg mg/dL (Negative) 12/13/18 Unknown Urine Ketones Neg mg/dL (Negative) 12/13/18 Unknown Urine Blood Neg (Negative) 12/13/18 Unknown Urine Nitrite Neg (Negative) 12/13/18 Unknown Urine Bilirubin Neg (Negative) 12/13/18 Unknown Urine Urobilinogen < 2.0 mg/dL (<2.0) 12/13/18 Unknown Ur Leukocyte Esterase Sm (Negative) 12/13/18 Unknown Urine WBC (Auto) 24.0 /HPF (0.0-6.0) H 12/13/18 Unknown Urine RBC (Auto) 6.0 /HPF (0.0-6.0) 12/13/18 Unknown U Epithel Cells (Auto) 1.0 /HPF (0-13.0) 12/13/18 Unknown Salicylates < 0.3 mg/dL (2.8-20.0) L 12/13/18 01:02 Urine Opiates Screen Presumptive negative 12/13/18 Unknown Urine Methadone Screen Presumptive negative 12/13/18 Unknown Acetaminophen < 5.0 ug/mL (10.0-30.0) L 12/13/18 01:02 Ur Barbiturates Screen Presumptive negative 12/13/18 Unknown Ur Phencyclidine Scrn Presumptive negative 12/13/18 Unknown Ur Amphetamines Screen Presumptive negative 12/13/18 Unknown U Benzodiazepines Scrn Presumptive negative 12/13/18 Unknown Urine Cocaine Screen Presumptive negative 12/13/18 Unknown U Marijuana (THC) Screen Presumptive negative 12/13/18 Unknown Drugs of Abuse Note Disclamer 12/13/18 Unknown Plasma/Serum Alcohol < 0.01 % (0-0.07) 12/13/18 01:02 Active Medications - Current Medications Current Medications: Generic Name Dose Route Start Last Admin Trade Name Freq PRN Reason Stop Dose Admin Amlodipine Besylate 10 mg 12/13/18 10:00 12/20/18 09:44 Norvasc PO 10 mg QDAY KOTA Administration Lipase/Protease/Amylase 1 each 12/14/18 14:[address] 10,500 Unit FEEDTUBE PRN PRN For Clogged Feeding Tube Aspirin 81 mg 12/15/18 10:00 12/20/18 09:44 Baby Aspirin PO 81 mg QDAY KOTA Administration Famotidine 20 mg 12/18/18 10:00 12/20/18 09:45 Pepcid PO 20 mg BID KOTA Administration Folic Acid 1 mg 12/13/18 10:00 12/20/18 09:44 Folvite PO 1 mg QDAY KOTA Administration Heparin Sodium (Porcine) 5,000 unit 12/15/18 10:00 12/20/18 09:46 Heparin SUB-Q 5,000 unit Q12HR KOTA Administration Hydralazine HCl 10 mg 12/13/18 17:28 12/14/18 13:32 Apresoline IV 10 mg Q6HR PRN Administration High blood pressure Hydrophilic Ointment 1 applic 12/13/18 04:07 Vaseline Lip Therapy TP Q2HR PRN Dry Lips Levetiracetam 500 mg 12/16/18 10:00 12/20/18 09:44 Keppra PO 500 mg BID KOTA Administration Lorazepam 2 mg 12/13/18 00:52 12/18/18 19:20 Ativan IV 2 mg Q1HR PRN Administration CIWA-Ar 8-15 Lorazepam 4 mg 12/13/18 00:52 12/15/18 20:35 Ativan IV 4 mg Q1HR PRN Administration CIWA-Ar 16-25 Lorazepam 4 mg 12/13/18 00:52 12/13/18 02:26 Ativan IV 4 mg Q15MIN PRN Administration CIWA-Ar >25 Lorazepam 2 mg 12/13/18 04:07 Ativan IV Q10MIN PRN Agitation Multi-Ingred Cream/Lotion/Oil/Oint 1 applic 12/13/18 04:07 Artificial Tears Ophth Oint OU Q4HR PRN Dry Eye(s) Polyethylene Glycol 17 gm 12/19/18 10:00 Miralax 3350 PO QDAY PRN Constipation Pravastatin Sodium 10 mg 12/13/18 22:00 12/19/18 21:31 Pravachol PO 10 mg QHS KOTA Administration Quetiapine Fumarate 300 mg 12/15/18 22:00 12/20/18 09:44 Seroquel PO 300 mg BID KOTA Administration Scopolamine 1 each 12/16/18 19:00 12/19/18 18:06 Transderm-Scop TD 1 each Q72H KOTA Administration Simple Syrup 15 ml 12/14/18 14:10 Simple Syrup FEEDTUBE PRN PRN Hypoglycemia Simple Syrup 30 ml 12/14/18 14:10 Simple Syrup FEEDTUBE PRN PRN Hypoglycemia Sodium Bicarbonate 325 mg 12/14/18 14:10 Sodium Bicarbonate FEEDTUBE PRN PRN For Clogged Feeding Tube Sodium Chloride 10 ml 12/13/18 10:00 12/20/18 09:45 Sodium Chloride Flush Syringe 10 Ml IV 10 ml BID KOTA Administration Sodium Chloride 10 ml 12/13/18 08:30 Sodium Chloride Flush Syringe 10 Ml IV PRN PRN LINE FLUSH Thiamine HCl 100 mg 12/13/18 10:00 12/20/18 09:44 Vitamin B-1 PO 100 mg QDAY KOTA Administration Nutrition/Malnutrition Assess - Dietary Evaluation Nutrition/Malnutrition Findings: Nutrition Notes Start: 12/14/18 10:20 Freq: Status: Active Protocol: Document 12/18/18 09:41 LM (Rec: 12/18/18 09:56 LM [email or web address]) Nutrition Notes Initial or Follow up Reassessment Other Pertinent Diagnosis ETOH dependence, Seizure disorder, acute encephalopathy , Rhabdomyolysis Current Diet Vital AF at 75 ml/hr Labs/Tests No new labs Pertinent Medications reviewed Height 6 ft 1 in Weight 72 kg [place] Body Weight (kg) 83.63 BMI 20.9 Subjective/Other Information Vital AF running at 75 ml/hr. Pt extubated 12/16 Pt has dobhoff Burn Absent Trauma Absent Minimum of two criteria No physical signs of malnutrition #1 Nutrition Diagnosis Inadequate oral intake Diagnosis Progress(for reassessment Continues documentation) Is patient on ventilator? No Is Patient Ambulatory and/or Out of Bed No REE-([facility]-confined to bed) 1876.032 Kcal/Kg value to use for calculation 31 Approximate Energy Requirements Using 2232 kcal/Kg Calculation Used for Recommendations Kcal/kg Additional Notes Protein: 72-86g (1-1.2 g/kg) Fluid: 1 ml/kcal Nutrition Intervention Change Diet Order: TF Nutrition Support: Change to Osmolite 1.5 at 60 ml/hr Flush 175 ml q4hr Kcal 2,160 Protein (gm) 90 Fluid (mL) 1,097 Goal #1 TF tolerance Goal #2 Meet at least 75% of energy and protein needs Anticipated Discharge Needs: unable to determine at this time Follow-Up By: 12/20/18 Additional Comments F/U for new TF/tolerance
[2018-12-20] MEDS: PRAVACHOL PO SCH (21:45)
--- NOTE | 2018-12-20 22:19 | Progress Note ---
Assessment and Plan Patient awake, more oriented. no acute respiratory distress. Suppose to be On 2.5 litres O2. But not keeping his O2 as ordered.O2 saturation 97%.Patient running low grade fever at times No Leukocytosis. - Patient Problems (1) Alcohol dependence Current Visit: Yes Status: Acute Plan to address problem: Management as per primary care. (2) Alcohol withdrawal delirium Current Visit: Yes Status: Acute Plan to address problem: Patient is on Lorazepam. Management as per primary care. (3) Altered mental status, unspecified Current Visit: Yes Status: Acute Plan to address problem: Patient resting better to day. Less agitation. (4) Seizure Current Visit: Yes Status: Acute Plan to address problem: Patient is on Keppra, Management as per primary care and neurology. (5) Infiltrate of lower lobe of right lung present on imaging study Current Visit: Yes Status: Acute Plan to address problem: Patient running low grade fever at times. No leukocytosis. If patient febrile continuously, consider antibiotics. Aspiration precautions. Continue S/C Heparin for DVT prophylaxis. Subjective Date of service: 12/20/18 Principal diagnosis: Ac. hypoxic resp failure; Status epilepticus; Ac. Encephalopathy Interval history: Patient awake, more oriented. no acute respiratory distress. Suppose to be On 2.5 litres O2. But not keeping his O2 as ordered.O2 saturation 97%.Patient running low grade fever at times No Leukocytosis. Objective Vital Signs - 12hr 12/20/18 12/20/18 14:03 19:31 Temperature 99.0 F 98.0 F Pulse Rate 94 H 72 Respiratory 18 22 Rate Blood Pressure 119/73 136/76 O2 Sat by Pulse 97 97 Oximetry Constitutional: no acute distress, alert Eyes: non-icteric ENT: oropharynx dry, other (extubated) Neck: supple, no lymphadenopathy, no JVD Effort: mildly labored Ascultation: Right: rhonchi, Bilateral: diminished breath sounds Percussion: Bilateral: not dull Cardiovascular: regular rate and rhythm, other (Tachycardia, S1,S2, no murmurs, gallops or rubs) Gastrointestinal: normoactive bowel sounds, soft, non-tender, non-distended Integumentary: normal Extremities: no cyanosis, no edema, pulses normal, no ischemia or petechiae Neurologic: non-focal exam (grossly), pupils equal and round, CN II-XII normal, motor strength normal and Psychiatric: mood appropriate, affect normal CBC and BMP: 12/17/18 04:40 12/17/18 04:40 ABG, PT/INR, D-dimer: ABG POC ABG pH 7.490 (7.35-7.45) H 12/16/18 04:21 ABG pH 7.462 pH Units (7.350-7.450) H 12/16/18 17:40 POC ABG pCO2 32.3 (35-45) L 12/16/18 04:21 ABG pCO2 36.4 mm Hg 12/16/18 17:40 POC ABG pO2 98 (80-105) 12/16/18 04:21 ABG pO2 67.7 mm Hg (80.0-90.0) L 12/16/18 17:40 POC ABG HCO3 24.6 (22-26 mml/L) 12/16/18 04:21 POC ABG Total CO2 26 (23-27mmol/L) 12/16/18 04:21 POC ABG O2 Sat 98 12/16/18 04:21 ABG O2 Saturation 94.7 % (95.0-99.0) L 12/16/18 17:40 Abnormal lab findings: Abnormal Labs 12/12/18 12/12/18 12/13/18 23:45 23:45 01:02 WBC 4.4 L RBC 3.56 L Hct MCV 104 H MCH 34 H MCHC [place] % (Auto) [place] # POC ABG pH ABG pH POC ABG pCO2 POC ABG pO2 ABG pO2 ABG O2 Saturation ABG Hemoglobin Oxyhemoglobin Sodium BUN Creatinine 0.6 L Glucose 120 H POC Glucose Total Creatine Kinase 447 H Urine WBC (Auto) Salicylates Acetaminophen 12/13/18 12/13/18 12/13/18 01:02 01:02 10:12 WBC RBC Hct MCV MCH MCHC [place] % (Auto) [place] # POC ABG pH ABG pH POC ABG pCO2 POC ABG pO2 ABG pO2 ABG O2 Saturation ABG Hemoglobin Oxyhemoglobin Sodium BUN Creatinine Glucose POC Glucose Total Creatine Kinase 935 H Urine WBC (Auto) Salicylates < 0.3 L Acetaminophen < 5.0 L 12/13/18 12/13/18 12/14/18 Unknown Unknown 04:21 WBC RBC 3.45 L Hct MCV 103 H MCH 35 H MCHC [place] % (Auto) 13.4 H [place] # 1.1 H POC ABG pH ABG pH POC ABG pCO2 POC ABG pO2 ABG pO2 219.0 H ABG O2 Saturation 99.3 H ABG Hemoglobin 12.7 L Oxyhemoglobin Sodium BUN Creatinine Glucose POC Glucose Total Creatine Kinase Urine WBC (Auto) 24.0 H Salicylates Acetaminophen 12/14/18 12/14/18 12/14/18 04:21 06:00 12:31 WBC RBC Hct MCV MCH MCHC [place] % (Auto) [place] # POC ABG pH 7.469 H ABG pH 7.457 H POC ABG pCO2 POC ABG pO2 116 H ABG pO2 100.8 H ABG O2 Saturation ABG Hemoglobin 12.5 L Oxyhemoglobin Sodium 136 L BUN 6 L Creatinine 0.5 L Glucose 126 H POC Glucose Total Creatine Kinase 619 H Urine WBC (Auto) Salicylates Acetaminophen 12/15/18 12/15/18 12/15/18 06:00 11:34 13:45 WBC RBC Hct MCV MCH MCHC [place] % (Auto) [place] # POC ABG pH ABG pH POC ABG pCO2 POC ABG pO2 ABG pO2 122.1 H ABG O2 Saturation ABG Hemoglobin 12.8 L 12.9 L Oxyhemoglobin Sodium BUN Creatinine Glucose POC Glucose 116 H Total Creatine Kinase Urine WBC (Auto) Salicylates Acetaminophen 12/16/18 12/16/18 12/16/18 04:21 12:30 17:40 WBC RBC Hct MCV MCH MCHC [place] % (Auto) [place] # POC ABG pH 7.490 H ABG pH 7.462 H POC ABG pCO2 32.3 L POC ABG pO2 ABG pO2 98.1 H 67.7 L ABG O2 Saturation 94.7 L ABG Hemoglobin 9.1 L 13.0 L Oxyhemoglobin 92.8 L Sodium BUN Creatinine Glucose POC Glucose Total Creatine Kinase Urine WBC (Auto) Salicylates Acetaminophen 12/17/18 12/17/18 12/17/18 04:40 04:40 05:06 WBC RBC 3.41 L Hct 34.9 L MCV 102 H MCH 36 H MCHC 35 H [place] % (Auto) [place] # POC ABG pH ABG pH POC ABG pCO2 POC ABG pO2 ABG pO2 ABG O2 Saturation ABG Hemoglobin Oxyhemoglobin Sodium BUN Creatinine 0.6 L Glucose 119 H POC Glucose Total Creatine Kinase 176 H Urine WBC (Auto) Salicylates Acetaminophen 12/17/18 12/18/18 12/18/18 11:57 12:35 16:40 WBC RBC Hct MCV MCH MCHC [place] % (Auto) [place] # POC ABG pH ABG pH POC ABG pCO2 POC ABG pO2 ABG pO2 ABG O2 Saturation ABG Hemoglobin Oxyhemoglobin Sodium BUN Creatinine Glucose POC Glucose 129 H 114 H 114 H Total Creatine Kinase Urine WBC (Auto) Salicylates Acetaminophen 12/18/18 23:56 WBC RBC Hct MCV MCH MCHC [place] % (Auto) [place] # POC ABG pH ABG pH POC ABG pCO2 POC ABG pO2 ABG pO2 ABG O2 Saturation ABG Hemoglobin Oxyhemoglobin Sodium BUN Creatinine Glucose POC Glucose 110 H Total Creatine Kinase Urine WBC (Auto) Salicylates Acetaminophen Allied health notes reviewed: nursing
[2018-12-21 07:36] VITALS: BP 111/69
--- NOTE | 2018-12-21 08:56 | Progress Note ---
Assessment and Plan Acute hypoxic respiratory failure Status epilepticus Acute metabolic encephalopathy due to postictal state Alcohol abuse/dependence SIRS without organ dysfunction Acute Cystitis Hypertensive urgency Moderate malnutrition Rhabdomyolysis - continue BIPAP qhs and prn in daytime for SOB - continue Seroquel at 300 mg bid for delirium and to spare IV sedatives - Continue CIWA protocol - continue GI & VTE prophylaxis - ST evaluation and advance diet as tolerated - continue aspiration precautions - Supplemental oxygen wean for O2 sat's > 90% - continue bronchodilators with pulmonary hygiene per RT - Mobility protocols for pressure ulcer prevention - continue chronic home medications - continue accuchecks with glycemic control per SSI for target blood glucose 140-180mg/dL - Avoid hypoglycemia - follow clinically off AB's - Continue Keppra and other home meds - Monitor and correct electrolytes - Counselling on substance abuse and medical therapy adherence - continue other care per attending / other employee relations consultant's ... re-evaluate in am & prn CONDITION: FAIR PROGNOSIS: GUARDED CODE STATUS: FULL CODE Advance Directives: Yes Subjective Date of service: 12/21/18 Principal diagnosis: Ac. hypoxic resp failure; Status epilepticus; Ac. Encephalopathy Objective Vital Signs - 12hr 12/20/18 12/20/18 12/21/18 22:00 23:30 02:21 Temperature 98.0 F Pulse Rate 82 65 Respiratory 22 12 22 Rate Blood Pressure 116/75 O2 Sat by Pulse 99 98 100 Oximetry 12/21/18 07:30 Temperature 98.8 F Pulse Rate 68 Respiratory 18 Rate Blood Pressure 111/69 O2 Sat by Pulse 97 Oximetry Constitutional: no acute distress, alert Eyes: non-icteric ENT: oropharynx dry, other (extubated) Neck: supple, no lymphadenopathy, no JVD Effort: mildly labored Ascultation: Right: rhonchi, Bilateral: clear, diminished breath sounds Percussion: Bilateral: not dull Cardiovascular: regular rate and rhythm, other (Tachycardia, S1,S2, no murmurs, gallops or rubs) Gastrointestinal: normoactive bowel sounds, soft, non-tender, non-distended Integumentary: normal Extremities: no cyanosis, no edema, pulses normal, no ischemia or petechiae Neurologic: non-focal exam (grossly), pupils equal and round, CN II-XII normal, motor strength normal and Psychiatric: mood appropriate, affect normal CBC and BMP: 12/17/18 04:40 12/17/18 04:40 ABG, PT/INR, D-dimer: ABG POC ABG pH 7.490 (7.35-7.45) H 12/16/18 04:21 ABG pH 7.462 pH Units (7.350-7.450) H 12/16/18 17:40 POC ABG pCO2 32.3 (35-45) L 12/16/18 04:21 ABG pCO2 36.4 mm Hg 12/16/18 17:40 POC ABG pO2 98 (80-105) 12/16/18 04:21 ABG pO2 67.7 mm Hg (80.0-90.0) L 12/16/18 17:40 POC ABG HCO3 24.6 (22-26 mml/L) 12/16/18 04:21 POC ABG Total CO2 26 (23-27mmol/L) 12/16/18 04:21 POC ABG O2 Sat 98 12/16/18 04:21 ABG O2 Saturation 94.7 % (95.0-99.0) L 12/16/18 17:40 Abnormal lab findings: Abnormal Labs 12/12/18 12/12/18 12/13/18 23:45 23:45 01:02 WBC 4.4 L RBC 3.56 L Hct MCV 104 H MCH 34 H MCHC [place] % (Auto) [place] # POC ABG pH ABG pH POC ABG pCO2 POC ABG pO2 ABG pO2 ABG O2 Saturation ABG Hemoglobin Oxyhemoglobin Sodium BUN Creatinine 0.6 L Glucose 120 H POC Glucose Total Creatine Kinase 447 H Urine WBC (Auto) Salicylates Acetaminophen 12/13/18 12/13/18 12/13/18 01:02 01:02 10:12 WBC RBC Hct MCV MCH MCHC [place] % (Auto) [place] # POC ABG pH ABG pH POC ABG pCO2 POC ABG pO2 ABG pO2 ABG O2 Saturation ABG Hemoglobin Oxyhemoglobin Sodium BUN Creatinine Glucose POC Glucose Total Creatine Kinase 935 H Urine WBC (Auto) Salicylates < 0.3 L Acetaminophen < 5.0 L 12/13/18 12/13/18 12/14/18 Unknown Unknown 04:21 WBC RBC 3.45 L Hct MCV 103 H MCH 35 H MCHC [place] % (Auto) 13.4 H [place] # 1.1 H POC ABG pH ABG pH POC ABG pCO2 POC ABG pO2 ABG pO2 219.0 H ABG O2 Saturation 99.3 H ABG Hemoglobin 12.7 L Oxyhemoglobin Sodium BUN Creatinine Glucose POC Glucose Total Creatine Kinase Urine WBC (Auto) 24.0 H Salicylates Acetaminophen 12/14/18 12/14/18 12/14/18 04:21 06:00 12:31 WBC RBC Hct MCV MCH MCHC [place] % (Auto) [place] # POC ABG pH 7.469 H ABG pH 7.457 H POC ABG pCO2 POC ABG pO2 116 H ABG pO2 100.8 H ABG O2 Saturation ABG Hemoglobin 12.5 L Oxyhemoglobin Sodium 136 L BUN 6 L Creatinine 0.5 L Glucose 126 H POC Glucose Total Creatine Kinase 619 H Urine WBC (Auto) Salicylates Acetaminophen 12/15/18 12/15/18 12/15/18 06:00 11:34 13:45 WBC RBC Hct MCV MCH MCHC [place] % (Auto) [place] # POC ABG pH ABG pH POC ABG pCO2 POC ABG pO2 ABG pO2 122.1 H ABG O2 Saturation ABG Hemoglobin 12.8 L 12.9 L Oxyhemoglobin Sodium BUN Creatinine Glucose POC Glucose 116 H Total Creatine Kinase Urine WBC (Auto) Salicylates Acetaminophen 12/16/18 12/16/18 12/16/18 04:21 12:30 17:40 WBC RBC Hct MCV MCH MCHC [place] % (Auto) [place] # POC ABG pH 7.490 H ABG pH 7.462 H POC ABG pCO2 32.3 L POC ABG pO2 ABG pO2 98.1 H 67.7 L ABG O2 Saturation 94.7 L ABG Hemoglobin 9.1 L 13.0 L Oxyhemoglobin 92.8 L Sodium BUN Creatinine Glucose POC Glucose Total Creatine Kinase Urine WBC (Auto) Salicylates Acetaminophen 12/17/18 12/17/18 12/17/18 04:40 04:40 05:06 WBC RBC 3.41 L Hct 34.9 L MCV 102 H MCH 36 H MCHC 35 H [place] % (Auto) [place] # POC ABG pH ABG pH POC ABG pCO2 POC ABG pO2 ABG pO2 ABG O2 Saturation ABG Hemoglobin Oxyhemoglobin Sodium BUN Creatinine 0.6 L Glucose 119 H POC Glucose Total Creatine Kinase 176 H Urine WBC (Auto) Salicylates Acetaminophen 12/17/18 12/18/18 12/18/18 11:57 12:35 16:40 WBC RBC Hct MCV MCH MCHC [place] % (Auto) [place] # POC ABG pH ABG pH POC ABG pCO2 POC ABG pO2 ABG pO2 ABG O2 Saturation ABG Hemoglobin Oxyhemoglobin Sodium BUN Creatinine Glucose POC Glucose 129 H 114 H 114 H Total Creatine Kinase Urine WBC (Auto) Salicylates Acetaminophen 12/18/18 23:56 WBC RBC Hct MCV MCH MCHC [place] % (Auto) [place] # POC ABG pH ABG pH POC ABG pCO2 POC ABG pO2 ABG pO2 ABG O2 Saturation ABG Hemoglobin Oxyhemoglobin Sodium BUN Creatinine Glucose POC Glucose 110 H Total Creatine Kinase Urine WBC (Auto) Salicylates Acetaminophen Allied health notes reviewed: nursing
[2018-12-21] MEDS: PEPCID PO SCH (09:30)
[2018-12-21] MEDS: VITAMIN B-1 PO SCH (09:31)
[2018-12-21] MEDS: KEPPRA PO SCH (09:31)
[2018-12-21] MEDS: FOLVITE PO SCH (09:31)
[2018-12-21] MEDS: BABY ASPIRIN PO SCH (09:31)
[2018-12-21] MEDS: SODIUM CHLORIDE FLUSH SYRINGE 10 ML IV SCH (09:32)
[2018-12-21] MEDS: HEPARIN SUB-Q SCH (09:32)
--- NOTE | 2018-12-21 10:47 | Discharge Summary ---
Providers - Providers Date of Admission: 12/13/18 08:17 Date of discharge: 12/21/18 Attending physician: MYRNA HERNANDEZ MD 12/13/18 04:07 Consult to Physician [CONS] Stat Comment: was notified [id number] Consulting Provider: GENIE BEGUM Physician Instructions: Reason For Exam: resp failure ams 12/13/18 08:27 Consult to Physician [CONS] Routine Comment: Consulting Provider: RENETTA TEMPLETON Physician Instructions: Reason For Exam: SEIZURE 12/13/18 08:30 Consult to Dietitian/Nutrition [CONS] Routine Physician Instructions: Reason For Exam: Reason for Consult: Malnutrition 12/13/18 08:43 Consult to Physician [CONS] Routine Comment: Consulting Provider: JORGE LEW Physician Instructions: Reason For Exam: critical care 12/18/18 08:00 Speech Therapy Evaluation and Treat [CONS] Routine Reason For Exam: swallowing evaluation 12/19/18 07:47 Physical Therapy Evaluation and Treat [CONS] Routine Comment: Reason For Exam: seizure disorder Primary care physician: TOY DESIGNER Hospitalization Condition: Critical Time spent for discharge: 34 minutes - Discharge Diagnoses (1) Alcohol dependence Status: Acute (2) Alcohol withdrawal delirium Status: Acute (3) Altered mental status, unspecified Status: Acute (4) Infiltrate of lower lobe of right lung present on imaging study Status: Acute (5) Seizure Status: Acute Core Measure Documentation - Palliative Care Palliative Care/ Comfort Measures: Not Applicable - Core Measures Any of the following diagnoses?: none Exam - Physical Exam Narrative exam: Not in cardiopulmonary distress. The patient appeared well nourished and normally developed. Vital signs as documented. Head exam is unremarkable. No scleral icterus . Neck is without jugular venous distension, thyromegaly, or carotid bruits. Lungs are clear to auscultation. Cardiac exam reveals regular rate and Rhythm. Abdominal exam reveals normal bowel sounds. Extremities are nonedematous and both femoral and pedal pulses are normal. 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 - Constitutional Vitals: Temp Pulse Resp BP Pulse Ox 98.8 F 68 18 111/69 97 12/21/18 07:30 12/21/18 09:31 12/21/18 07:30 12/21/18 09:31 12/21/18 07:30 Plan Activity: no restrictions Weight Bearing Status: Full Weight Bearing Diet: regular Follow up with: PRIMARY CARE,MD [Primary Care Provider] - 3-5 Days Prescriptions: levETIRAcetam [Keppra TAB] 500 mg PO Q12HR #60 tablet
== END 2018-12-21 14:06 | disposition home health service (06) | DRG 208 ==
LOC: ED 22:59 → CC1 12-13 08:17 → 2B-ACE 12-18 13:31
PROVIDERS: ADMIT Internal Medicine; ATTEND Internal Medicine
PROC: 0BH17EZ Insertion of Endotracheal Airway into Trachea, Via Natural or Artificial Opening (ICD-10-PCS; 2018-12-13)
PROC: 5A1945Z Respiratory Ventilation, 24-96 Consecutive Hours (ICD-10-PCS; 2018-12-14)
PROC: 4A033R1 Measurement of Arterial Saturation, Peripheral, Percutaneous Approach (ICD-10-PCS; principal; 2018-12-15)
PROC: 5A09357 Assistance with Respiratory Ventilation, Less than 24 Consecutive Hours, Continuous Positive Airway Pressure (ICD-10-PCS; 2018-12-16)
PROC: 5A09357 Assistance with Respiratory Ventilation, Less than 24 Consecutive Hours, Continuous Positive Airway Pressure (ICD-10-PCS; 2018-12-17)
PROC: 5A09357 Assistance with Respiratory Ventilation, Less than 24 Consecutive Hours, Continuous Positive Airway Pressure (ICD-10-PCS; 2018-12-18)
PROC: 5A09357 Assistance with Respiratory Ventilation, Less than 24 Consecutive Hours, Continuous Positive Airway Pressure (ICD-10-PCS; 2018-12-19)
PROC: 5A09357 Assistance with Respiratory Ventilation, Less than 24 Consecutive Hours, Continuous Positive Airway Pressure (ICD-10-PCS; 2018-12-20)
DX: J96.01 Acute respiratory failure with hypoxia (principal); R65.10 Systemic inflammatory response syndrome (SIRS) of non-infectious origin without acute organ dysfunction; N30.00 Acute cystitis without hematuria; E44.0 Moderate protein-calorie malnutrition; M62.82 Rhabdomyolysis; F10.231 Alcohol dependence with withdrawal delirium; G40.901 Epilepsy, unspecified, not intractable, with status epilepticus; F17.210 Nicotine dependence, cigarettes, uncomplicated; E78.5 Hyperlipidemia, unspecified; I10 Essential (primary) hypertension; I16.0 Hypertensive urgency; Z79.82 Long term (current) use of aspirin; Z91.14 Patient's other noncompliance with medication regimen; Z90.49 Acquired absence of other specified parts of digestive tract; Z68.20 Body mass index [BMI] 20.0-20.9, adult
CPT/HCPCS: 36415; 36600; 70450; 71045; 72125; 74018; 80048; 80307; 80320; 81001; 82140; 82550; 82803; 82962; 83735; 85025; 85027; 87086; 93005; 93010; 94002; 94003; 94660; 94760; 96361; 96365; 96375; G0378; A9270-GY; G0480; G0515-GN; J0360; J0696; J1630; J1644; J1953; J2060; J2704; J3010; J7030